=== PATIENT | male | born 1965 | race Caucasian/White ===

== ENCOUNTER 2020-01-06 14:49 | Outpatient (REF) | payer OTHER, SELFPAY ==
--- NOTE | 2020-01-06 14:51 | MR_ITS ---
MR CERVICAL SPINE WITHOUT IV CONTRAST CLINICAL INFORMATION: Disease of the spinal cord. Difficulty walking. COMPARISON: Cervical spine MRI 03/17/2017. TECHNIQUE: MRI of the cervical spine was obtained using routine sequences without contrast. FINDINGS: There are postoperative changes following ACDF at C4-C5 and C5-C6. Mild disc volume loss at the junctional C3-C4 level. There is no bone marrow edema. There are no acute fractures. Craniocervical junction is unremarkable. Partially imaged posterior fossa is unremarkable. Cervical arterial flow voids are maintained. Similar small focal syrinx at C6. There is no new cord signal abnormality. The cervical arterial flow voids are maintained. Partially imaged lipoma within the left periscapular region. C2-C3: Shallow central disc protrusion mildly does the ventral thecal sac. Uncovertebral joint spurring and hypertrophic facet arthropathy result in moderate to severe right-sided foraminal stenosis. Findings are unchanged. C3-C4: Disc osteophyte mildly narrows the central canal. Uncovertebral joint hypertrophy and hypertrophic facet arthropathy result in moderate bilateral foraminal stenosis. Findings are unchanged. C4-C5: ACDF changes. Postoperative decompression of the central canal. Osteophytic ridging slightly flattens the ventral cord. Uncovertebral joint spurring results in mild right foraminal encroachment. C5-C6: ACDF changes. Osteophytic ridging continues to result in mass effect on the cervical cord and moderate central canal stenosis. Uncovertebral joint hypertrophy and hypertrophic facet arthropathy continue to result in severe right-sided foraminal stenosis. C6-C7: Disc osteophyte mildly narrows the central canal. Uncovertebral joint hypertrophy and hypertrophic facet arthropathy result in worsening severe right-sided foraminal stenosis. C7-T1: Shallow central disc protrusion without central canal stenosis. Facet arthropathy results in mild to moderate right and mild left foraminal stenosis that is unchanged. At T1-T2, there is a similar appearing left paracentral disc protrusion that slightly flattens the left ventral cord. MR/MR cervical spine wo con IMPRESSION: - There are postoperative changes following C4-C5 and C5-C6 ACDF. At C5-C6, osteophytic ridging continues to result in moderate central canal stenosis, flattening of the cervical cord, and severe right-sided foraminal stenosis. - At C6-C7, progressive spondylitic changes result in worsening severe right-sided foraminal stenosis. - Spondylitic changes result in similar moderate to severe right C2-C3 and moderate bilateral C3-C4 foraminal stenosis. - Similar small focal syrinx at C6.
== END 2020-01-06 14:50 | disposition home or self-care (01) ==
LOC: HO.MRI 14:49
PROVIDERS: PCP Internal Medicine Geriatric Medicine; Visit Provider Internal Medicine Geriatric Medicine
DX: G95.9 Disease of spinal cord, unspecified (principal); R26.2 Difficulty in walking, not elsewhere classified
CPT/HCPCS: 72141

== ENCOUNTER 2022-10-03 09:37 | Outpatient (AMB) | payer BC, SELFPAY ==
--- NOTE | 2022-10-03 10:04 | MHC.OFFVIS ---
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 Pt reports short term memory impairment. He noticed that his short term memory loss in 2020 and slowly progressed. 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 Pt reports forgetfulness, short term memory loss, difficulty concentrating and word finding. He drives locally, can do ALDs independently. He uses pill organizer and phone calendar to have reminder for family events and doctors' appointments. He is not physically active due to neck and back pain, feels more isolated and depressed. He does Sudoku and reading books daily for cognitive activity. Pt had a brain CT done and the result was partially calcified atheromatous plaque involving the intradural left vertebral artery. He is on atorvastin 20 mg daily and check his labs q 6 months. Pt reports snoring and gasping arousals, and it has been worsened lately. He gained about 20 lb over the last 5 years. He sleeps in flat, can't use pillow due to neck pain. Pt reports frequent arousals, nocturia and non refreshing sleep with daytime sleepiness. He snores, experiences gasping for air, non rerefreshing sleep and daytime tiredness. He drinks 3 cups of coffee in the morning to stay wake and takes care of his grandchild. Sleep questionnaire: Have you ever been diagnosed with a sleep disorder? No. Have you ever had a sleep study in the past? No. Have you ever been treated for a sleep disorder? No. Do you take medications for a sleep disorder? Trazodone 200 mg qHS. Do you snore? Yes. Do you wake up gasping at night? Yes. Do you have episodes of apneas? Yes. If yes, are they witnessed? Yes. Do you have episodes of nocturnal chest pain or dyspnea? Yes. Do you have difficulty initiating sleep? Yes. Do you have difficulty maintaining sleep? Yes. Do you wake up tired? Yes. Do you have headaches upon awakening? Yes. Do you wake up with dry mouth or throat? Yes. Do you have GERD? No. Do you have nocturia? Yes. Do you have nocturnal leg cramps? Yes. Do you have symptoms of restless legs? Yes. Do you act out your dreams? No. Sleep hygiene questionnaire: What is your usual sleep routine? Usual bedtime is at 8 pm; Usual wake up time is at 6 am. Do you take naps? Yes, 1 hr a day. Is your sleep environment cool, dark, and quiet? Yes. Do you exercise? No. Do you take caffeine or other stimulants? 3 cups of coffee in the morning to stay awake. Do you use electronics in bed? Yes. What is your work schedule? N/A. Hypersomnolence questionnaire: Do you have daytime tiredness or fatigue? Yes. Do you easily fall asleep when inactive? Yes, more lately. Have you ever had episodes of sudden weakness? No. Have you ever had episodes of sudden weakness associated with strong emotions? No. PFSH Surgical History (Updated 10/03/22 @ 10:12 by Smita Reyes CMA) H/O Spinal surgery Hx of cholecystectomy Family History (Updated 10/03/22 @ 10:13 by Smita Reyes CMA) Mother Diabetes HTN (hypertension) Father Diabetes HTN (hypertension) Family/Other HTN (hypertension) Social History (Updated 10/03/22 @ 10:14 by Smita Reyes CMA) Alcohol intake: never Patient Tobacco Use Status: Former Tobacco user Use of substances other than those prescribed or required for medical reasons: No Review of Systems Const All systems reviewed & are unremarkable except as noted in HPI and below ENT Reports Normal hearing present Neuro Reports Normal hearing present Physical Exam Vital Signs: Last Vital Signs Pulse 71 10/03/22 10:14 BP 120/80 10/03/22 10:14 Pulse Ox 93 10/03/22 10:14 Oxygen Delivery Method Room Air 10/03/22 10:14 BMI result Body Mass Index 31.9 Const General: cooperative Nutritional Appearance: obese Orientation/consciousness: patient oriented x3 Neuro General: patient oriented x3 and gait normal Cranial nerves: Yes Bilaterally intact EOM present, Yes Normal facial strength present, Yes Midline tongue present, Yes Symmetric palate elevation present, Yes Normal hearing present and Yes Ability to bilaterally rotate head present Cognition (Neuro): normal cognition Gait exam (Neuro): Normal gait present Motor exam (neuro): 5/5 motor strength present throughout, Pronator motor function not present and no tremor noted Psych Appearance: grossly normal Mental Status: mental status grossly normal Speech and movement: Normal speech and movement present Affect: normal affect Attitude: cooperative Orientation What is the (year) (season) (date) (day) (month)?: year, season, date, day and month Where are we (state) (county) (town or city) (hospital) (floor)?: state, county, town or city, hospital/clinic and floor Registration Name of 3 unrelated objects clearly and slowly, then ask patient to repeat all 3 of them. (1st repeat determines score. Make sure they can repeat all three): object 1, object 2 and object 3 Attention & Calculation (CHOOSE ONE) Spell WORLD backwards (DLROW): 5 letters Recall Ask patient to repeat the 3 items from question #3.: object 1, object 2 and object 3 Language Show patient a wristwatch & ask what it is. Repeat for pencil.: watch and pencil Ask the patient to repeat the phrase 'No ifs, ands, or buts' after you.: incorrect Ask the patient to 'take a piece of paper with their right hand' 'fold paper in half' 'place paper on floor': take paper in right hand, fold paper in half and place paper on floor Print the sentence 'CLOSE YOUR EYES' on a piece. If patient actually closes eyes then score.: followed written direction Give patient a blank piece of paper & ask to write a sentence. Score if it contains a noun & verb.: sentence contains subject and verb Ask patient to copy figure of intersecting pentagons exactly. Score if all 10 angles & 2 intersects are included.: all 10 angles present & 2 are intersected Score Score: 29 Assessment & Plan Assessment & Plan (1) Excessive daytime sleepiness: Code(s): G47.19 - Other hypersomnia (2) Loud snoring: Code(s): R06.83 - Snoring (3) Cognitive impairment: Code(s): R41.89 - Other symptoms and signs involving cognitive functions and awareness (4) Obese: Code(s): E66.9 - Obesity, unspecified Plan Pt had labs done two months ago, requested the result from [facility]. Pt is advised to undergo in-lab sleep study to assess for sleep apnea. Will f/u with pt after study to discuss results and appropriate treatment options. Continue to take atorvastatin 20 mg daily, manage BP and BS. Continue to practice cognitive and physical activity. Wt reduction advised. Pt to call with any worsening concerns or questions. Orders: Orders RT PSG in-lab sleep study Today E11.69 - Type 2 diabetes mellitus with other specified complication, E66.9 - Obesity, unspecified, G47.19 - Other hypersomnia, G93.89 - Other specified disorders of brain, I10 - Essential (primary) hypertension, R06.83 - Snoring, R41.89 - Other symptoms and signs involving cognitive functions and awareness Coding Level of Care Code New Pt Level 4 (55219) Diagnoses Excessive daytime sleepiness G47.19 Loud snoring R06.83 Cognitive impairment R41.89 Obese E66.9
[2022-10-03 10:14] VITALS: BP 120/80; PULSE 71; O2SAT 93; BMI 31.9
== END 2022-10-03 11:01 | disposition home or self-care (01) ==
PROVIDERS: Visit Provider Nurse Practitioner Family
DX: G47.19 Other hypersomnia (principal); R06.83 Snoring; R41.89 Other symptoms and signs involving cognitive functions and awareness; E66.9 Obesity, unspecified
CPT/HCPCS: 99204

== ENCOUNTER → 2022-10-03 09:37 | Outpatient (BNVA) | payer BC, SELFPAY | PROVIDERS: Visit Provider Nurse Practitioner Family ==

== ENCOUNTER → 2023-01-21 08:40 | Outpatient (REF) | payer BC, SELFPAY | LOC: HO.SL 08:40 | PROVIDERS: PCP Internal Medicine Geriatric Medicine; Visit Provider Nurse Practitioner Family | DX: G47.19 Other hypersomnia (principal); R06.83 Snoring; E66.9 Obesity, unspecified; R41.89 Other symptoms and signs involving cognitive functions and awareness; I10 Essential (primary) hypertension | CPT/HCPCS: 95806 ==

== ENCOUNTER → 2023-01-21 08:53 | Outpatient (BNV) | payer BC, SELFPAY | PROVIDERS: PCP Internal Medicine Geriatric Medicine; Visit Provider Psychiatry & Neurology Neurology | DX: R06.83 Snoring (principal) | CPT/HCPCS: 95806 ==

== ENCOUNTER 2023-01-26 10:32 | Outpatient (REF) | payer BC, SELFPAY ==
[2023-01-26 11:55] LABS: Anion Gap 10 (12-20); Blood Urea Nitrogen 12 mg/dL (9-16); Calcium 9.6 mg/dL (8.4-10.2); Carbon Dioxide 32 mmol/L (22-29); Chloride 104 mmol/L (96-108); Estimated Glomerular Filt Rate > 60; Glucose Random 112 mg/dL (60-115); Potassium 4.3 mmol/L (3.3-5.1); Sodium 142 mmol/L (135-145)
[2023-01-26 12:08] LABS: Creatinine Urine 41.99 mg/dL; Microalbumin Urine < 5.0 mg/L
== END 2023-01-26 10:33 | disposition home or self-care (01) ==
LOC: HO.HHCL 10:32
PROVIDERS: Visit Provider Internal Medicine Geriatric Medicine
DX: E11.9 Type 2 diabetes mellitus without complications (principal)
CPT/HCPCS: 36415; 80048; 82043; 82570

== ENCOUNTER → 2023-03-12 19:30 | Outpatient (REF) | payer BC, SELFPAY | LOC: HO.SL 19:30 | PROVIDERS: PCP Internal Medicine Geriatric Medicine; Visit Provider Nurse Practitioner Family | DX: G47.19 Other hypersomnia (principal); R06.83 Snoring; E11.69 Type 2 diabetes mellitus with other specified complication | CPT/HCPCS: 95810 ==

== ENCOUNTER → 2023-03-13 00:47 | Outpatient (BNV) | payer BC, SELFPAY | PROVIDERS: PCP Internal Medicine Geriatric Medicine; Visit Provider Psychiatry & Neurology Neurology | DX: R06.83 Snoring (principal) | CPT/HCPCS: 95810 ==

== ENCOUNTER 2023-04-07 10:04 | Outpatient (AMB) | payer BC, SELFPAY ==
--- NOTE | 2023-04-07 10:30 | MHC.OFFVIS ---
Intake Vital Signs 04/07/23 10:37 Height 6 ft 4 in Weight 253 lb 8.505 oz BMI 30.9 BP 148/75 H Blood Pressure Location Lt brachial Position Sitting Pulse 84 Intake Visit Reasons: Colonoscopy Screening Intake Note: Miguel presents in the office as a colonoscopy screening. CC: No concerns today he just has never had a colonoscopy Stunt Woman Required: No Allergies No Known Allergies Allergy (Verified 04/07/23 10:39) HPI Colonoscopy Screening HPI Details 57 year old? male with past medical history of hypertension, diabetes, hypercholesteremia is here today for pre colonoscopy screening.? Patient was sent to us by his PCP.? This is his first colonoscopy screening.? Patient denies any gastrointestinal symptoms in the past or at present.? Denies any personal or family history of gastrointestinal disease, colon polyps, or cancer.? Denies history of difficulty with sedation or anesthesia in the past.? Negative for history of sleep apnea.? However patient reports that he had study to rule out sleep apnea and is awaiting for results and appointment follow-up. Patient was told that his oxygen level went down during the study and he had to wear oxygen. Denies any history of cardiac, renal, pulmonary, or hepatic disease.?? No history of infectious? diseases like hepatitis A, B, C, HIV or tuberculosis.? Patient is not on any anticoagulation therapy. [facility] Surgical History Hx of cholecystectomy H/O Spinal surgery Family History Mother Diabetes HTN (hypertension) Father Diabetes HTN (hypertension) Family/Other HTN (hypertension) Social History Alcohol intake: never Patient Tobacco Use Status: Former Tobacco user Review of Systems Const Denies weight gain and Denies weight loss ENT Reports no additional complaints, Denies dysphagia and Denies odynophagia Card Reports no additional complaints Resp Reports no additional complaints GI Denies abdominal pain, Denies belching, Denies melena, Denies bloating, Denies change in bowel habits, Denies dysphagia, Denies excessive flatus, Denies dyspepsia, Denies heartburn, Denies diarrhea, Denies loose stools, Denies nausea, Denies odynophagia and Denies vomiting Reports no additional complaints Musc Reports no additional complaints Neuro Reports no additional complaints Psych Reports no additional complaints Endo Reports no additional complaints Physical Exam Vital Signs: Last Vital Signs Pulse 84 04/07/23 10:37 BP 148/75 H 04/07/23 10:37 BMI result Body Mass Index 30.9 Const General: healthy appearing, no acute distress and well developed Nutritional Appearance: obese Orientation/consciousness: patient oriented x3 Resp Effort & Inspection: normal respiratory effort, able to speak in complete sentences, no tracheal deviation and symmetric chest movement Auscultation: clear to auscultation bilaterally Cardio Rate: regular rate GI Inspection: Yes normal to inspection, No distended and Yes obesity Palpation (GI): Soft to palpation, not firm, nontender and No hepatosplenomegaly present Auscultation: normal bowel sounds General: Yes no CVA tenderness Back/Spine/Pelvis Back: no CVA tenderness Skin General skin exam: elasticity normal, turgor normal and dry skin Neuro General: patient oriented x3 Psych Appearance: grossly normal Mental Status: mental status grossly normal Assessment & Plan Assessment & Plan (1) Screen for colon cancer: Code(s): Z12.11 - Encounter for screening for malignant neoplasm of colon Plan: Patient denies any GI, cardiac or respiratory symptoms.? Denies any issues with anesthesia in the past.? Denies any history of sleep apnea.? However patient had sleep study done and reports that his oxygen levels went down during the sleep. Patient is waiting for appointment for follow-up. No history infectious diseases in the past or present.? Not on any anticoagulation therapy.? No family or personal history of colon cancer or polyps.? Patient denies melena, hematochezia, unintentional weight loss or ribbon like stools.? Discussed at length the pre-procedure,? prep, diet & medications as well as what to expect prior, during and after the procedure.?? Stressed the importance of good bowel prep. ?Recommended the use of Vaseline or Calmoseptine OTC & baby wipes with bowel movements to promote comfort.? ?Patient verbalizes understanding and agrees to plan of care.? He was given the opportunity to ask questions and all questions answered.? We will see him after the procedure.? Medications: New polyethylene glycol 3350 (Miralax) As directed by gastroenterology department at [facility] 238 grams PO ONCE 238 grams 0RF Z12.11 - Encounter for screening for malignant neoplasm of colon bisacodyl (Dulcolax (bisacodyl)) take 4 tabs at noon the day before your colonoscopy 20 mg (4 x 5 mg) PO ONCE 1 day 4 tabs 0RF Z12.11 - Encounter for screening for malignant neoplasm of colon Coding Level of Care Code New Pt Level 3 (36443) Diagnoses Screen for colon cancer Z12.11 Time Spent (min) 40 Comment 30 minutes spent with patient and 10 minutes spent reviewing his records
[2023-04-07 10:37] VITALS: BP 148/75; PULSE 84; BMI 30.9
== END 2023-04-07 11:35 | disposition home or self-care (01) ==
PROVIDERS: PCP Internal Medicine Geriatric Medicine; Visit Provider Nurse Practitioner Family
DX: Z01.818 Encounter for other preprocedural examination (principal); Z12.11 Encounter for screening for malignant neoplasm of colon
CPT/HCPCS: S0285

== ENCOUNTER → 2023-04-07 10:04 | Outpatient (BNVA) | payer BC, SELFPAY | PROVIDERS: PCP Internal Medicine Geriatric Medicine; Visit Provider Nurse Practitioner Family ==

== ENCOUNTER 2023-06-15 10:07 | Outpatient (REF) | payer BC, SELFPAY ==
--- NOTE | ~2023-06-15 | XR_ITS ---
EXAMINATION: XR CHEST CLINICAL INFORMATION: Reason for Exam G47.34 - Idiopathic sleep related nonobstructive alveolar hypoventilation COMPARISON: Chest radiograph 06/12/2017 TECHNIQUE: 2 views of the chest FINDINGS: Lines and tubes: Cervical hardware is suboptimally evaluated. Similar appearance of linear opacities in the left lung base which may reflect scarring or atelectasis with blunting of the costophrenic angle possibly reflecting of pleural parenchymal thickening or trace effusion. No pleural effusion. No pneumothorax. Unchanged cardiomediastinal silhouette. XR/XR chest 2V IMPRESSION: Similar appearance of linear opacities in the left lung base which may reflect scarring or atelectasis with blunting of the costophrenic angle possibly reflecting pleural parenchymal thickening or trace effusion.
== END 2023-06-15 10:08 | disposition home or self-care (01) ==
LOC: HO.XRAY 10:07
PROVIDERS: PCP Internal Medicine Geriatric Medicine; Visit Provider Internal Medicine
DX: G47.34 Idiopathic sleep related nonobstructive alveolar hypoventilation (principal); G47.19 Other hypersomnia
CPT/HCPCS: 71046

== ENCOUNTER 2023-06-15 10:07 | Outpatient (AMB) | payer BC, SELFPAY ==
--- NOTE | 2023-06-15 10:50 | A.OFFVIS_ITS ---
Intake Vital Signs 06/15/23 10:51 Height 6 ft 4 in Weight 254 lb 10.142 oz BMI 31.0 BP 130/70 Blood Pressure Location Lt brachial Position Sitting Pulse 73 Pulse Source Pulse Oximeter Pulse Oximetry (%) 95 Oxygen Delivery Method Room Air Intake Visit Reasons: Obstructive sleep apnea Intake Note: pt is here as a new patient for MIKE and states he has no cpap but has had 2 sleep study in past, he states he has very difficulty time sleeping at night. Appeals Court Associate Justice Required: No Allergies losartan Adverse Reaction (Intermediate, Verified 06/15/23 13:28) Cough Medication List - Last Reconciled 06/15/23 by Delia Jim MD atorvastatin 20 mg PO DAILY bisacodyl (Dulcolax (bisacodyl)) 20 mg (4 x 5 mg) PO ONCE 1 day blood sugar diagnostic ([employer] Ultra Test strips) As directed cyclobenzaprine 10 mg PO TID metformin 500 mg PO BID metoprolol tartrate 100 mg PO BID mometasone 0.1% topical DAILY multivitamin 1 tab PO DAILY oxycodone-acetaminophen 5-325 mg 1 tab PO Q8H PRN polyethylene glycol 3350 (Miralax) 238 grams PO ONCE pregabalin 100 mg PO BID sertraline 300 mg PO DAILY tadalafil 5 mg PO DAILY trazodone 200 mg PO BEDTIME PRN Do you need a note to return to daycare/school/sports/work: No HPI Obstructive sleep apnea HPI Details 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 He is referred for pulmonary evaluation because during his sleep studies, he was found to have nocturnal hypoxemia. He has had problem with his cervical spine, secondary to degenerative arthritis, requiring spinal fusion, in 2018 and 2022. Since 2019 he has been out of work because of the neck problem. Starting in 2018, he has had sleep disorder, characterized by poor sleep, freq uent awakening, and subsequent daytime fatigue and sleepiness. He has been only slightly overweight. Due to complications from the cervical spinal surgery, he had problem with his teeth which have been pulled out. He is edentulous , waiting for having dentures. This gentleman does not have history of any chronic pulmonary disease such as bronchial asthma or COPD. He has been a nonsmoker. For pain control he is on oxycodone-acetaminophen 5-325 q.8 hours p.r.n.. He is also on sertraline 300 mg daily for depression. In addition he takes trazodone 200 mg at bedtime p.r.n. for sleep he also uses cyclobenzaprine 10 mg t.i.d. in addition he is being treated for type 2 diabetes mellitus, hypertension, and hyperlipidemia. For his sleep disorder he had a home-based sleep study, which was negative for sleep apnea but, he had nocturnal hypoxemia with O2 sat below 88% for about 37 minutes. Then he had a sleep lab based polysomnogram study on 03/12/2023, which was also negative for sleep apnea. But he did have O2 desaturations and lowest O2 sat down to 85% and O2 sat below 88% for about 9 minutes. He was started on O2 1 L/minute. This indicates that he has some degree of sleep-related hypoventilatory disorder. He has been referred for pulmonary evaluation. [facility] Surgical History Hx of cholecystectomy H/O Spinal surgery Family History Mother Diabetes HTN (hypertension) Father Diabetes HTN (hypertension) Family/Other HTN (hypertension) Social History Alcohol intake: never Patient Tobacco Use Status: Former Tobacco user Review of Systems Const All systems reviewed & are unremarkable except as noted in HPI and below Reports weakness (Of upper extremities) Eyes Reports no additional complaints ENT Reports no additional complaints and Reports neck pain Card Denies chest pain, Denies syncope, Denies irregular heart rhythm and Denies leg edema Resp Reports as per HPI GI Reports no additional complaints Reports no additional complaints Musc Reports back pain, Reports muscle weakness (FEELS WEAK IN THE UPPER EXTREMITIES,) and Reports neck pain Skin/Breast Reports system reviewed and no additional complaints, except as documented Neuro Denies syncope and Reports weakness (Of upper extremities) Psych Reports depression Endo Reports no additional complaints Santos/Lymph Reports no additional complaints Aller/Immun Reports no additional complaints Physical Exam Vital Signs: Last Vital Signs Pulse 73 06/15/23 10:51 BP 130/70 06/15/23 10:51 Pulse Ox 95 06/15/23 10:51 Oxygen Delivery Method Room Air 06/15/23 10:51 BMI result Body Mass Index 31.0 Const General: healthy appearing, comfortable, no acute distress, alert and awake Orientation/consciousness: patient oriented x3 HEENT Head: Yes normal to inspection General nose exam: No nasal polyps present and No nasal discharge present Face and sinus: Yes sinuses nontender Mouth: oropharynx normal Teeth and gingiva: edentulous Throat: Yes posterior oropharynx normal Eyes General: appearance normal, both eyes and all related structures Neck Neck: Yes normal visual inspection, Yes no lymphadenopathy, Yes trachea midline, Yes no JVD and Yes other (Surgical scars on the back of the neck) Thyroid: Thyroid normal Chest Chest palpation & inspection: normal inspection of the chest, normal palpation of entire chest wall and no tenderness Resp Effort & Inspection: normal respiratory effort Auscultation: clear to auscultation bilaterally, no crackles, no rales and no wheezes Cardio Palpation: normal PMI Rate: regular rate Rhythm: regular rhythm Heart sounds: no gallops and no murmurs Peripheral pulses: Peripheral pulses 2+ throughout GI Palpation (GI): Soft to palpation, nontender, No hepatosplenomegaly present and no masses Auscultation: normal bowel sounds Back/Spine/Pelvis Thoracic/Lumbar Spine: thoracic and lumbar spine normal to inspection and thoraco-lumbar ROM limited Skin General skin exam: no rashes or lesions noted Neuro General: patient oriented x3 and no focal motor deficits Cranial nerves: Yes CN's II-XII intact bilaterally Extrem General: Yes normal to inspection, Yes no clubbing, cyanosis or edema and Yes no calf tenderness Psych Appearance: grossly normal and well kempt Speech and movement: Normal speech and movement present Results Reviewed Results Reviewed: Results of polysomnogram study on 03/12/2023 are reviewed and explained to the patient There was no evidence of sleep apnea. For bouts of desaturation with average O2 sat 92% lowest O2 sat 85%, and O2 sat below 88% for 9.5 minutes Assessment & Plan Assessment & Plan (1) Excessive daytime sleepiness: Comment: This gentleman does have daytime fatigue and sleepiness, which is nonspecific. Sleep study negative for sleep apnea. His symptoms may be due to depression, insufficient sleep at night, and poor physical conditioning. He is on rather large dose of sertraline as well as trazodone. Code(s): G47.19 - Other hypersomnia Plan: Explained to the patient and reassured that he does not have sleep apnea. Possible reasons for his sleepiness and fatigue explained, He is encouraged to be active and do some daily walking as well as gentle. exercises (2) Nocturnal hypoxemia: Comment: Nocturnal hypoxemia as recorded in the polysomnogram study was relatively brief, and O2 sat below 88% for only 9.5 minutes. The reason for O2 desaturations could be sleep-related hypoventilation, or even technical. As he does not seem to have any significant cardiac or pulmonary disease, I think he would not need supplementary oxygen at night. Code(s): G47.34 - Idiopathic sleep related nonobstructive alveolar hypoventilation Plan: Chest x-ray is ordered. Pulmonary function test is also ordered, to rule out any significant pulmonary disease. I would discuss the results of pulmonary function test with him on the next visit . Orders: Orders PFT pulmonary function test Today G47.34 - Idiopathic sleep related nonobstructive alveolar hypoventilation XR chest 2V Today G47.34 - Idiopathic sleep related nonobstructive alveolar hypoventilation Coding Level of Care Code New Pt Level 4 (70748) Diagnoses Excessive daytime sleepiness G47.19 Nocturnal hypoxemia G47.34
[2023-06-15 10:51] VITALS: BP 130/70; PULSE 73; O2SAT 95; BMI 31.0
== END 2023-06-15 11:38 | disposition home or self-care (01) ==
PROVIDERS: PCP Internal Medicine Geriatric Medicine; Referring Provider Internal Medicine Geriatric Medicine; Visit Provider Internal Medicine
DX: G47.19 Other hypersomnia (principal); G47.34 Idiopathic sleep related nonobstructive alveolar hypoventilation
CPT/HCPCS: 99204

== ENCOUNTER 2023-06-24 08:33 | Outpatient (REF) | payer BC, SELFPAY ==
[2023-06-24 08:45] VITALS: PULSE 77; RESP 16; O2SAT 96
--- NOTE | 2023-06-24 10:07 | PFT_ITS ---
Flows: FEV1: 79 % of predicted at 3.40 L FVC: 75 % of predicted at 4.26 L FEV1/FVC: 80 % Bronchodilator response: Absent Volumes: Total lung capacity: 72 % of predicted at 6.30 L Residual volume: 76 % of predicted at 2.04 L Slow vital capacity: 69 % of predicted at 4.26 L Expiratory reserve volume: 64 % of predicted at 1.15 L Diffusion capacity: Patient was unable to perform diffusion capacity maneuver. Impression: Moderate restrictive ventilatory defect with no bronchodilator response. Patient was unable to perform diffusion capacity maneuver. MTDD
== END 2023-06-24 08:34 | disposition home or self-care (01) ==
LOC: HO.RESP 08:33
PROVIDERS: PCP Internal Medicine Geriatric Medicine; Visit Provider Internal Medicine
DX: G47.34 Idiopathic sleep related nonobstructive alveolar hypoventilation (principal)
CPT/HCPCS: 94010; 94640; 94727; 94729

== ENCOUNTER → 2023-06-24 10:07 | Outpatient (BNV) | payer BC, SELFPAY | PROVIDERS: PCP Internal Medicine Geriatric Medicine; Visit Provider Internal Medicine Pulmonary Disease | DX: R06.09 Other forms of dyspnea (principal) | CPT/HCPCS: 94060; 94727; 94729 ==

== ENCOUNTER 2023-08-06 10:29 | Outpatient (AMB) | payer BC, SELFPAY ==
--- NOTE | 2023-08-06 10:56 | MHC.OFFVIS ---
Vital Signs 08/06/23 10:57 Height 6 ft 4 in Weight 253 lb 8.505 oz BMI 30.9 BP 130/74 Blood Pressure Location Lt brachial Position Sitting Pulse 78 Pulse Source Pulse Oximeter Pulse Oximetry (%) 96 Oxygen Delivery Method Room Air Intake Visit Reasons: Cough Intake Note: pt is here for follow up and states his breathing is worse, is now having short of breath with exertion during the day Allergies losartan Adverse Reaction (Intermediate, Verified 08/06/23 11:24) Cough Medication List - Last Reconciled 08/06/23 by Delia Jim MD atorvastatin 20 mg PO DAILY bisacodyl (Dulcolax (bisacodyl)) 20 mg (4 x 5 mg) PO ONCE 1 day blood sugar diagnostic ([facility] Ultra Test strips) As directed cyclobenzaprine 10 mg PO TID metformin 500 mg PO BID metoprolol tartrate 100 mg PO BID mometasone 0.1% topical DAILY multivitamin 1 tab PO DAILY oxycodone-acetaminophen 5-325 mg 1 tab PO Q8H PRN polyethylene glycol 3350 (Miralax) 238 grams PO ONCE pregabalin 100 mg PO BID sertraline 300 mg PO DAILY tadalafil 5 mg PO DAILY trazodone 200 mg PO BEDTIME PRN Do you need a note to return to daycare/school/sports/work: No HPI HPI Cough: Details: 58 years old gentleman is here for follow-up after having pulmonary function test. His main issue is nocturnal hypoxemia. Home-based sleep study as well as polysomnogram study in the sleep lab have ruled out diagnosis of obstructive sleep apnea . But confirm that he does have nocturnal hypoxemia. This gentleman denies history of smoking. He denies history of any asthma bronchitis or COPD. He does have shortness of breath on walking fast or climbing stairs but this is part of his feeling. Weak and tired in the morning His sleep is fragmented and he thinks it is due to low oxygen. However he does have diagnosis of depression and poor poor sleep. He is on sertraline 300 mg daily and also trazodone 200 mg at bedtime. In addition he uses oxycodone/acetaminophen 5-320 5q 8 hours p.r.n. PULMONARY FUNCTION TEST SHOWED ONLY MILD RESTRICTIVE DISORDER BUT NO OBSTRUCTIVE DISORDER. FOR[facility]LY [facility] Medical History (Updated 05/23/24 @ 11:56 by Delia Jim MD) Nocturnal hypoxemia Restrictive airway disease HTN (hypertension) Diabetes mellitus type 2 in obese Surgical History Hx of cholecystectomy H/O Spinal surgery Family History Mother Diabetes HTN (hypertension) Father Diabetes HTN (hypertension) Family/Other HTN (hypertension) Social History Alcohol intake: never Patient Tobacco Use Status: Former Tobacco user Review of Systems Const All systems reviewed & are unremarkable except as noted in HPI and below Reports weakness (Of upper extremities) Eyes Reports no additional complaints ENT Reports no additional complaints and Reports neck pain Card Denies chest pain, Denies syncope, Denies irregular heart rhythm and Denies leg edema Resp Reports as per HPI GI Reports no additional complaints Reports no additional complaints Musc Reports back pain, Reports muscle weakness (FEELS WEAK IN THE UPPER EXTREMITIES,) and Reports neck pain Skin/Breast Reports system reviewed and no additional complaints, except as documented Neuro Denies syncope and Reports weakness (Of upper extremities) Psych Reports depression Endo Reports no additional complaints Santos/Lymph Reports no additional complaints Aller/Immun Reports no additional complaints Physical Exam Vital Signs: Last Vital Signs Pulse 78 08/06/23 10:57 BP 130/74 08/06/23 10:57 Pulse Ox 96 08/06/23 10:57 Oxygen Delivery Method Room Air 08/06/23 10:57 BMI result Body Mass Index 30.9 Const General: healthy appearing, comfortable, no acute distress, alert and awake Orientation/consciousness: patient oriented x3 HEENT Head: Yes normal to inspection General nose exam: No nasal polyps present and No nasal discharge present Face and sinus: Yes sinuses nontender Mouth: oropharynx normal Teeth and gingiva: edentulous Throat: Yes posterior oropharynx normal Eyes General: appearance normal, both eyes and all related structures Neck Neck: Yes normal visual inspection, Yes no lymphadenopathy, Yes trachea midline, Yes no JVD and Yes other (Surgical scars on the back of the neck) Thyroid: Thyroid normal Chest Chest palpation & inspection: normal inspection of the chest, normal palpation of entire chest wall and no tenderness Resp Effort & Inspection: normal respiratory effort Auscultation: clear to auscultation bilaterally, no crackles, no rales and no wheezes Cardio Palpation: normal PMI Rate: regular rate Rhythm: regular rhythm Heart sounds: no gallops and no murmurs Peripheral pulses: Peripheral pulses 2+ throughout GI Palpation (GI): Soft to palpation, nontender, No hepatosplenomegaly present and no masses Auscultation: normal bowel sounds Back/Spine/Pelvis Thoracic/Lumbar Spine: thoracic and lumbar spine normal to inspection and thoraco-lumbar ROM limited Skin General skin exam: no rashes or lesions noted Neuro General: patient oriented x3 and no focal motor deficits Cranial nerves: Yes CN's II-XII intact bilaterally Extrem General: Yes normal to inspection, Yes no clubbing, cyanosis or edema and Yes no calf tenderness Psych Appearance: grossly normal and well kempt Speech and movement: Normal speech and movement present Results Reviewed Results Reviewed: PULMONARY FUNCTION TEST on 06/24/2023 c/w mild restrictive pulmonary disorder.( TLC=72 % ) No obstructive airway disorder and no response to bronchodilator therapy Assessment & Plan Assessment & Plan (1) Restrictive airway disease: Comment: HE HAS MILD RESTRICTIVE LUNG DISORDER, TLC 72% THERE IS NO OBSTRUCTIVE AIRWAY DISORDER. Code(s): J98.4 - Other disorders of lung Category: Medical Plan: EXPLAINED ABOUT THE DIAGNOSIS, ADVISED TO DO DEEP BREATHING EXERCISES. NEEDS TO LOSE ABOUT 10 LB OF WEIGHT. (2) Excessive daytime sleepiness: Comment: This gentleman does have daytime fatigue and sleepiness, which is nonspecific. Sleep study negative for sleep apnea. His symptoms may be due to depression, insufficient sleep at night, and poor physical conditioning. He is on rather large dose of sertraline as well as trazodone. The patient is thinks it is due to low oxygen at night. Code(s): G47.19 - Other hypersomnia Category: Medical Plan: Advised to continue present medications. Advised to stay active and walk on a daily basis. Will consider starting on O2 at nighttime. (3) Nocturnal hypoxemia: Comment: Nocturnal hypoxemia as recorded in the polysomnogram study , O2 sat below 88% for only 9.5 minutes. The reason for O2 desaturations could be sleep-related hypoventilation, * his earlier home-based sleep study had shown the O2 sat below 88% for 35 minutes. The patient is convinced that in the sleep lab based study if his O2 sat was measured on room air throughout the night it would have been more than 9 minutes. He say is that many times he checks his O2 sat at nighttime and he finds it below 88%. Code(s): G47.34 - Idiopathic sleep related nonobstructive alveolar hypoventilation Category: Medical Plan: Because of his continued daytime sleepiness and fatigue. And frequent finding of low O2 sat at night, we would try to put him on O2 supplementation at night and hope that his fatigue/daytime sleepiness will improve. O2 supplementation at 2 L/minute at nighttime is prescribed. Coding Level of Care Code Est Pt Level 3 (00743) Diagnoses Restrictive airway disease J98.4 Excessive daytime sleepiness G47.19 Nocturnal hypoxemia G47.34
[2023-08-06 10:57] VITALS: BP 130/74; PULSE 78; O2SAT 96; BMI 30.9
== END 2023-08-06 11:23 | disposition home or self-care (01) ==
PROVIDERS: PCP Internal Medicine Geriatric Medicine; Visit Provider Internal Medicine
DX: J98.4 Other disorders of lung (principal); G47.19 Other hypersomnia; G47.34 Idiopathic sleep related nonobstructive alveolar hypoventilation
CPT/HCPCS: 99213

== ENCOUNTER → 2023-08-06 10:29 | Outpatient (BNVA) | payer BC, SELFPAY | PROVIDERS: PCP Internal Medicine Geriatric Medicine; Visit Provider Internal Medicine ==

== ENCOUNTER 2023-09-24 08:59 | Outpatient (REF) | payer BC, SELFPAY ==
[2023-09-24 14:46] LABS: MANUAL DIFF FLAG NO
[2023-09-24 14:57] LABS: Basophils Percent Auto 0.4 % (0-2); Eosinophils Absolute Auto 0.1 X10*3/uL (0.0-0.4); Eosinophils Percent Auto 2.2 % (0-4); Hematocrit 47.9 % (42.0-52.0); Hemoglobin 15.4 g/dl (14.0-18.0); Imm Gran Abs Auto 0.01 X10*3/uL (0.00-0.03); Imm Gran Pct Auto 0.2 % (0.0-0.4); Lymphocytes Absolute Auto 1.4 X10*3/uL (1.2-4.9); Lymphocytes Percent Auto 25.4 % (20-40); Mean Corpuscular HGB Conc 32.2 g/dl (31.0-36.0); Mean Corpuscular Hemoglobin 26.7 pg (27.0-33.0); Mean Platelet Volume 10.1 fL (9.4-12.4); Monocytes Absolute Auto 0.4 X10*3/uL (0.1-1.2); Monocytes Percent Auto 6.9 % (2-11); Neutrophils Absolute Auto 3.6 x10*3/uL (2.0-8.3); Neutrophils Percent Auto 64.9 % (45-73); Platelet Count 129 X10*3/uL (160-400); Red Blood Count 5.77 X10*6/uL (4.60-5.80); White Blood Count 5.5 X10*3/uL (4.8-10.8)
[2023-09-24 15:04] LABS: Estimated Average Glucose 123 mg/dL; Hemoglobin A1c % 5.9 % (<6.0)
[2023-09-24 15:18] LABS: Alanine Aminotransferase 27 U/L (0-40); Albumin Level 4.3 g/dL (3.5-5.0); Alkaline Phosphatase 73 U/L (39-117); Anion Gap 13 (12-20); Aspartate Amino Transferase 28 U/L (5-37); Bilirubin Total 0.5 mg/dL (0.0-1.0); Blood Urea Nitrogen 14 mg/dL (9-16); Calcium 9.7 mg/dL (8.4-10.2); Carbon Dioxide 27 mmol/L (22-29); Chloride 107 mmol/L (96-108); Cholesterol 159 mg/dL (<200); Estimated Glomerular Filt Rate > 60; Glucose Random 119 mg/dL (60-115); HDL Cholesterol 30 mg/dL (>40); LDL Cholesterol Calculated 86 mg/dL (<100); Sodium 143 mmol/L (135-145); Total Protein 7.2 g/dL (6.5-8.0); Triglycerides 218 mg/dL (<150)
[2023-09-24 15:36] LABS: Creatinine Urine 184.34 mg/dL; Microalbum/Creatinine Ratio Ur 8.1 ug/mg cr (<30)
== END 2023-09-24 09:00 | disposition home or self-care (01) ==
LOC: HO.CHCLDS 08:59
PROVIDERS: Visit Provider Internal Medicine Geriatric Medicine
DX: E11.9 Type 2 diabetes mellitus without complications (principal); M54.2 Cervicalgia; G89.29 Other chronic pain; G95.0 Syringomyelia and syringobulbia; R29.898 Other symptoms and signs involving the musculoskeletal system; Z98.1 Arthrodesis status
CPT/HCPCS: 36415; 80053; 80061; 82043; 82570; 83036; 85025; 86140

== ENCOUNTER 2023-10-06 10:48 | Outpatient (AMB) | payer BC, SELFPAY ==
[2023-10-06 11:02] VITALS: BP 140/90; PULSE 87; O2SAT 95; BMI 30.5
--- NOTE | 2023-10-06 11:02 | MHC.OFFVIS ---
Vital Signs 10/06/23 11:02 Height 6 ft 4 in Weight 250 lb 3.594 oz BMI 30.5 BP 140/90 H Blood Pressure Location Lt brachial Position Sitting Pulse 87 Pulse Source Pulse Oximeter Pulse Oximetry (%) 95 Oxygen Delivery Method Room Air Intake Visit Reasons: Cough Intake Note: pt is here for follow up and the oxygen has made a huge difference in his life. Negative Developer Required: No Allergies losartan Adverse Reaction (Intermediate, Verified 10/06/23 11:23) Cough Medication List - Last Reconciled 10/06/23 by Delia Jim MD atorvastatin 20 mg PO DAILY bisacodyl (Dulcolax (bisacodyl)) 20 mg (4 x 5 mg) PO ONCE 1 day blood sugar diagnostic ([facility] Ultra Test strips) As directed cyclobenzaprine 10 mg PO TID metformin 500 mg PO BID metoprolol tartrate 100 mg PO BID mometasone 0.1% topical DAILY multivitamin 1 tab PO DAILY oxycodone-acetaminophen 5-325 mg 1 tab PO Q8H PRN polyethylene glycol 3350 (Miralax) 238 grams PO ONCE pregabalin 100 mg PO BID sertraline 300 mg PO DAILY tadalafil 5 mg PO DAILY trazodone 200 mg PO BEDTIME PRN Do you need a note to return to daycare/school/sports/work: No HPI HPI Cough: Details: 58 YEARS OLD GENTLEMAN, IS ON OXYCODONE-ACETAMINOPHEN 5-3251 TABLET Q 8 HOURS P.R.N. FOR PAIN CONTROL, HE HAS CHRONIC NECK PAIN. HE DOES NOT HAVE ANY PRIMARY LUNG DISEASE BUT WAS FOUND TO HAVE NOCTURNAL HYPOXEMIA. HAS BEEN STARTED ON OXYGEN SUPPLEMENTATION 2-3 L/MINUTE AT NIGHT DURING SLEEP. HE COMES TODAY FOR FOLLOW-UP AND CLAIMS THAT LIFE IS CHANGED. HE FEELS STRONGER. HIS MOOD IS BETTER. HE CAN DO MORE PHYSICAL ACTIVITY. HE DOES NOT NEED TO USE OXYGEN DURING THE DAYTIME. FORMERLY [facility] Medical History Nocturnal hypoxemia Restrictive airway disease HTN (hypertension) Diabetes mellitus type 2 in obese Surgical History Hx of cholecystectomy H/O Spinal surgery Family History Mother Diabetes HTN (hypertension) Father Diabetes HTN (hypertension) Family/Other HTN (hypertension) Social History Alcohol intake: never Patient Tobacco Use Status: Former Tobacco user Review of Systems Const All systems reviewed & are unremarkable except as noted in HPI and below Reports weakness (Of upper extremities) Eyes Reports no additional complaints ENT Reports no additional complaints and Reports neck pain Card Denies chest pain, Denies syncope, Denies irregular heart rhythm and Denies leg edema Resp Reports as per HPI GI Reports no additional complaints Reports no additional complaints Musc Reports back pain, Reports muscle weakness (FEELS WEAK IN THE UPPER EXTREMITIES,) and Reports neck pain Skin/Breast Reports system reviewed and no additional complaints, except as documented Neuro Denies syncope and Reports weakness (Of upper extremities) Psych Reports depression Endo Reports no additional complaints Santos/Lymph Reports no additional complaints Aller/Immun Reports no additional complaints Physical Exam Vital Signs: Last Vital Signs Pulse 87 10/06/23 11:02 BP 140/90 H 10/06/23 11:02 Pulse Ox 95 10/06/23 11:02 Oxygen Delivery Method Room Air 10/06/23 11:02 BMI result Body Mass Index 30.5 Const General: healthy appearing, comfortable, no acute distress, alert and awake Orientation/consciousness: patient oriented x3 HEENT Head: Yes normal to inspection General nose exam: No nasal polyps present and No nasal discharge present Face and sinus: Yes sinuses nontender Mouth: oropharynx normal Teeth and gingiva: edentulous Throat: Yes posterior oropharynx normal Eyes General: appearance normal, both eyes and all related structures Neck Neck: Yes normal visual inspection, Yes no lymphadenopathy, Yes trachea midline, Yes no JVD and Yes other (Surgical scars on the back of the neck) Thyroid: Thyroid normal Chest Chest palpation & inspection: normal inspection of the chest, normal palpation of entire chest wall and no tenderness Resp Effort & Inspection: normal respiratory effort Auscultation: clear to auscultation bilaterally, no crackles, no rales and no wheezes Cardio Palpation: normal PMI Rate: regular rate Rhythm: regular rhythm Heart sounds: no gallops and no murmurs Peripheral pulses: Peripheral pulses 2+ throughout GI Palpation (GI): Soft to palpation, nontender, No hepatosplenomegaly present and no masses Auscultation: normal bowel sounds Back/Spine/Pelvis Thoracic/Lumbar Spine: thoracic and lumbar spine normal to inspection and thoraco-lumbar ROM limited Skin General skin exam: no rashes or lesions noted Neuro General: patient oriented x3 and no focal motor deficits Cranial nerves: Yes CN's II-XII intact bilaterally Extrem General: Yes normal to inspection, Yes no clubbing, cyanosis or edema and Yes no calf tenderness Psych Appearance: grossly normal and well kempt Speech and movement: Normal speech and movement present Assessment & Plan Assessment & Plan (1) Restrictive airway disease: Comment: HE HAS MILD RESTRICTIVE LUNG DISORDER, TLC 72% THERE IS NO OBSTRUCTIVE AIRWAY DISORDER. Code(s): J98.4 - Other disorders of lung Category: Medical Plan: ADVISED TO CONTINUE DOING DEEP BREATHING EXERCISES AT LEAST 3 TIMES A DAY (2) Nocturnal hypoxemia: Comment: Nocturnal hypoxemia as recorded in the polysomnogram study , O2 sat below 88% for only 9.5 minutes. The reason for O2 desaturations could be sleep-related hypoventilation, Code(s): G47.34 - Idiopathic sleep related nonobstructive alveolar hypoventilation Category: Medical Plan: CONTINUE USING O2 2 L/MINUTE DURING SLEEP. MAY INCREASE TO 3 L/MINUTE IF HE FEELS SHORT OF BREATH. Coding Level of Care Code Est Pt Level 3 (22570) Diagnoses Restrictive airway disease J98.4 Nocturnal hypoxemia G47.34
== END 2023-10-06 11:23 | disposition home or self-care (01) ==
PROVIDERS: PCP Internal Medicine Geriatric Medicine; Visit Provider Internal Medicine
DX: J98.4 Other disorders of lung (principal); G47.34 Idiopathic sleep related nonobstructive alveolar hypoventilation
CPT/HCPCS: 99213

== ENCOUNTER → 2023-10-06 10:48 | Outpatient (BNVA) | payer BC, SELFPAY | PROVIDERS: PCP Internal Medicine Geriatric Medicine; Visit Provider Internal Medicine ==

== ENCOUNTER 2023-10-09 10:28 | Outpatient (AMB) | payer BC, SELFPAY ==
--- NOTE | 2023-10-09 10:51 | HO.SPINEOV ---
Intake Visit Reasons: cervical spondylosis Intake Note: Mr. Gabriel is here today c/o neck and shoulder pain. Cardiac Rehabilitation Specialist Required: No Allergies losartan Adverse Reaction (Intermediate, Verified 10/06/23 11:23) Cough Assessment & Plan Assessment & Plan (1) Chronic neck pain with history of cervical spinal surgery: Code(s): M54.2 - Cervicalgia; G89.28 - Other chronic postprocedural pain; Z98.890 - Other specified postprocedural states Category: Medical (2) Lumbar back pain with radiculopathy affecting left lower extremity: Code(s): M54.16 - Radiculopathy, lumbar region Category: Medical Plan Dear colleague Thank you for referring Miguel Gabriel to the office today with a chief complaint of neck pain and left leg pain. HPI: This 58-year-old male developed neck pain in 2009. He was evaluated [facility]. 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 Over the years symptoms progress with radiating pain down his right arm. He underwent a C4-C6 anterior diskectomy and fusion in 2017 at [facility] and a C6-7 laminectomy 2021 at [facility]. The patient states that he continues to have neck pain radiating to his shoulders. He describes a burning pain in the shoulder blades, neck and shoulders. He denies radiating pain down his arms. A 2nd complaint is a 6 month history of left leg pain that radiates to the outside of his left thigh. The pain is worse when he changes from a sitting to standing position, he notices shooting pain with abdominal increasing pressure. PMH: Hypertension, diabetes type 2 Medications: Percocet 3 times a day, Lyrica, Flexeril Allergies: Losartan Social history: . Disabled due to symptoms. Nonsmoker Physical Exam: Pleasant male. Height 6 for weight 246 lb. On inspection there is mild atrophy in the hypothenar region on the left. Reflexes are symmetrically intact. No pathological reflexes. Good strength. Straight leg raise is positive on the left side with radiating pain to the outside of his left leg. Radiological Studies: MRI done at [facility] on 09/10/2023 show status post anterior diskectomy and fusion C4-5 and C5-6 and posterior C6-7 decompression. There is a small syrinx behind the body of C6. There is no spinal cord compression. There is no nerve root compression. There is a left T1-2 to disc bulge without spinal cord compression. Impression/Plan: This patient is suffering from chronic pain in neck and shoulders. Differential diagnosis is a non fusion versus pain associated with a syrinx. I will obtain a CT of the cervical spine to assess the fusion status. I relayed to the patient that I do not think that surgery would be indicated unless there is a clear non fusion. I will also order an MRI of the lumbar spine to see if we can find a cause for his left lumbar radiculopathy. I will see him in follow-up after the tests are done Thank you for allowing me to participate in your patients care. total time spent was 50 minutes in counseling ,coordination of plan, personal review of imaging, surgical decision making and subsequent plan Jonathan Lange MD, PhD Spine Fellowship Trained Neurosurgeon Director, [facility] Orders: Orders MR lumbar spine wo con Today M54.16 - Radiculopathy, lumbar region CT cervical spine wo IV con Today G89.28 - Other chronic postprocedural pain, M54.2 - Cervicalgia, Z98.890 - Other specified postprocedural states Coding Level of Care Code New Pt Level 4 (71689) Diagnoses Chronic neck pain with history of cervical spinal surgery M54.2; G89.28; Z98.890 Lumbar back pain with radiculopathy affecting left lower extremity M54.16
== END 2023-10-09 11:30 | disposition home or self-care (01) ==
PROVIDERS: PCP Internal Medicine Geriatric Medicine; Referring Provider Internal Medicine Geriatric Medicine; Visit Provider Neurological Surgery
DX: M54.2 Cervicalgia (principal); G89.28 Other chronic postprocedural pain; Z98.890 Other specified postprocedural states; M54.16 Radiculopathy, lumbar region
CPT/HCPCS: 99204

== ENCOUNTER → 2023-10-09 10:28 | Outpatient (BNVA) | payer BC, SELFPAY | PROVIDERS: PCP Internal Medicine Geriatric Medicine; Visit Provider Neurological Surgery ==

== ENCOUNTER 2023-10-29 10:15 | Day surgery (SDC) | payer BC, SELFPAY ==
--- NOTE | 2023-07-07 11:01 | HO.ANESPROP2 ---
HPI - Anesthesia Eval Consult details Narrative: 57yo M for Colonoscopy PMF Active Problems Active Problems: All Active Problems Nocturnal hypoxemia (Acute) Calcium deposits of brain (Acute) Diabetes mellitus type 2 in obese (Acute) Excessive daytime sleepiness (Acute) Loud snoring (Acute) Cognitive impairment (Acute) Obese (Acute) HTN (hypertension) (Acute) Past Medical History Medical History (Updated 07/07/23 @ 11:02 by Pina Mary NP) HTN (hypertension) Nocturnal hypoxemia Diabetes mellitus type 2 in obese Family History Family History Mother Diabetes HTN (hypertension) Father Diabetes HTN (hypertension) Family/Other HTN (hypertension) Surgical History Surgical History Hx of cholecystectomy H/O Spinal surgery Social History Social History Alcohol intake: never Patient Tobacco Use Status: Former Tobacco user Meds Allergies Allergy/AdvReac Type Severity Reaction Status Date / Time losartan AdvReac Intermediate Cough Verified 06/15/23 13:28 Home Medications ?Medication ?Instructions ?Recorded ?Confirmed ?Last Taken ?Type atorvastatin 20 mg tablet 20 mg PO DAILY 10/03/22 Unknown History blood sugar diagnostic (OneTouch #10 ea 10/03/22 Unknown History Ultra Test strips) cyclobenzaprine 10 mg tablet 10 mg PO TID 10/03/22 Unknown History metformin 500 mg tablet 500 mg PO BID 10/03/22 Unknown History metoprolol tartrate 100 mg tablet 100 mg PO BID 10/03/22 Unknown History mometasone 0.1 % topical ointment topical DAILY 10/03/22 Unknown History multivitamin 1 tab PO DAILY 10/03/22 Unknown History oxycodone-acetaminophen 5 mg-325 1 tab PO Q8H PRN severe pain 10/03/22 Unknown History mg tablet pregabalin 100 mg capsule 100 mg PO BID 10/03/22 Unknown History sertraline 150 mg capsule 300 mg PO DAILY 10/03/22 Unknown History tadalafil 5 mg tablet 5 mg PO DAILY 10/03/22 Unknown History trazodone 100 mg tablet 200 mg PO BEDTIME PRN 10/03/22 Unknown History Exam Pertinent Lab Results Pertinent Lab Results: Laboratory Tests 01/26/23 10:33 Sodium 142 Potassium 4.3 Chloride 104 Carbon Dioxide 32 H BUN 12 Creatinine 0.96 Assessment and Plan Assessment Anesthesia Assessment: Chart Reviewed
--- NOTE | 2023-10-28 12:10 | HO.ANESPROP2 ---
Documented by User: Pina Mary NP 10/28/23 12:11 HPI - Anesthesia Eval Consult details Narrative: 58yo M for Colonoscopy O2 @ 2-3L QHS for nocturnal hypoxemia Anesthesia Pre-Procedure Meds Is the patient on any of the following meds?: SGLT2 Inhib PMFSH Active Problems Active Problems: All Active Problems Lumbar back pain with radiculopathy affecting left lower extremity (Acute) Chronic neck pain with history of cervical spinal surgery (Acute) Nocturnal hypoxemia (Acute) Restrictive airway disease (Acute) Calcium deposits of brain (Acute) Excessive daytime sleepiness (Acute) Loud snoring (Acute) Cognitive impairment (Acute) Obese (Acute) Past Medical History Medical History Restrictive airway disease Nocturnal hypoxemia Diabetes mellitus type 2 in obese HTN (hypertension) Family History Family History Mother Diabetes HTN (hypertension) Father Diabetes HTN (hypertension) Family/Other HTN (hypertension) Surgical History Surgical History History of cervical spinal surgery Hx of cholecystectomy H/O Spinal surgery Social History Social History Alcohol intake: never Patient Tobacco Use Status: Former Tobacco user Are you DNR?: No Advance Directives: No Advance Directives Information Provided: Yes Meds Allergies Allergy/AdvReac Type Severity Reaction Status Date / Time losartan AdvReac Intermediate Cough Verified 10/06/23 11:23 Home Medications ?Medication ?Instructions ?Recorded ?Confirmed ?Last Taken ?Type atorvastatin 20 mg tablet 20 mg PO DAILY 10/03/22 10/06/23 Unknown History blood sugar diagnostic (OneTouch #10 ea 10/03/22 10/06/23 Unknown History Ultra Test strips) cyclobenzaprine 10 mg tablet 10 mg PO TID 10/03/22 10/06/23 Unknown History metformin 500 mg tablet 500 mg PO BID 10/03/22 10/06/23 Unknown History metoprolol tartrate 100 mg tablet 100 mg PO BID 10/03/22 10/06/23 10/29/23 History mometasone 0.1 % topical ointment topical DAILY 10/03/22 10/06/23 Unknown History multivitamin 1 tab PO DAILY 10/03/22 10/06/23 Unknown History oxycodone-acetaminophen 5 mg-325 1 tab PO Q8H PRN severe pain 10/03/22 10/06/23 Unknown History mg tablet pregabalin 100 mg capsule 100 mg PO BID 10/03/22 10/06/23 Unknown History sertraline 150 mg capsule 300 mg PO DAILY 10/03/22 10/06/23 Unknown History tadalafil 5 mg tablet 5 mg PO DAILY 10/03/22 10/06/23 Unknown History trazodone 100 mg tablet 200 mg PO BEDTIME PRN 10/03/22 10/06/23 Unknown History empagliflozin 10 mg tablet 10 mg PO DAILY 10/28/23 10/24/23 History (Jardiance) Exam Pertinent Lab Results Pertinent Lab Results: Laboratory Tests 09/24/23 09:02 WBC 5.5 Hgb 15.4 Hct 47.9 Plt Count 129 L Sodium 143 Potassium 4.0 Chloride 107 Carbon Dioxide 27 BUN 14 Creatinine 0.98 Assessment and Plan Assessment Anesthesia Assessment: Chart Reviewed Documented by User: Sejal Glasgow MD 10/29/23 12:09 [facility] Past Medical History Medical History Restrictive airway disease Nocturnal hypoxemia Diabetes mellitus type 2 in obese HTN (hypertension) Family History Family History Mother Diabetes HTN (hypertension) Father Diabetes HTN (hypertension) Family/Other HTN (hypertension) Family history of problems with anesthesia: No Surgical History Surgical History History of cervical spinal surgery Hx of cholecystectomy H/O Spinal surgery History of Problems with Anesthesia: No Social History Social History Alcohol intake: never Patient Tobacco Use Status: Former Tobacco user Are you DNR?: No Advance Directives: No Advance Directives Information Provided: Yes Meds Allergies Allergy/AdvReac Type Severity Reaction Status Date / Time losartan AdvReac Intermediate Cough Verified 10/06/23 11:23 Home Medications ?Medication ?Instructions ?Recorded ?Confirmed ?Last Taken ?Type atorvastatin 20 mg tablet 20 mg PO DAILY 10/03/22 10/06/23 Unknown History blood sugar diagnostic (OneTouch #10 ea 10/03/22 10/06/23 Unknown History Ultra Test strips) cyclobenzaprine 10 mg tablet 10 mg PO TID 10/03/22 10/06/23 Unknown History metformin 500 mg tablet 500 mg PO BID 10/03/22 10/06/23 Unknown History metoprolol tartrate 100 mg tablet 100 mg PO BID 10/03/22 10/06/23 10/29/23 History mometasone 0.1 % topical ointment topical DAILY 10/03/22 10/06/23 Unknown History multivitamin 1 tab PO DAILY 10/03/22 10/06/23 Unknown History oxycodone-acetaminophen 5 mg-325 1 tab PO Q8H PRN severe pain 10/03/22 10/06/23 Unknown History mg tablet pregabalin 100 mg capsule 100 mg PO BID 10/03/22 10/06/23 Unknown History sertraline 150 mg capsule 300 mg PO DAILY 10/03/22 10/06/23 Unknown History tadalafil 5 mg tablet 5 mg PO DAILY 10/03/22 10/06/23 Unknown History trazodone 100 mg tablet 200 mg PO BEDTIME PRN 10/03/22 10/06/23 Unknown History empagliflozin 10 mg tablet 10 mg PO DAILY 10/28/23 10/24/23 History (Jardiance) Exam Airway Mallampati Class: II TM Dist: >3cm Heart: rrr Lungs: cta Assessment and Plan Assessment Anesthesia Assessment: Anesthesia Plan Discussed Final Anesthetic Review Family History of Problems with Anesthesia: No History of Problems with Anesthesia: No NPO: Yes ASA Class: III Final Preanesthetic Review: No Changes in Pt Med Stat, Meds/Allgs Chart Reviewed, Consent Obtained/Reviewed and Anes Risks/Benef Reviewed Patient Risk: Intermediate Procedure Risk: Low Anesthetic Plan Anesthetic Plan: MAC: Disposition: Standard PACU
[2023-10-29 10:25] VITALS: BP 155/78; PULSE 65; RESP 18; TEMP 36.9; O2SAT 97; BMI 32.2
[2023-10-29 10:36] LABS: Glucose, Whole Blood 134 mg/dL (60-115)
[2023-10-29] MEDS: Lactated Ringers 1,000 ML 100 ML IVCONT (10:49)
--- NOTE | 2023-10-29 11:32 | P.HPSUR_ITS ---
Pre-Procedural Eval Section A - 24 Hr Update-Section A only Date of Service: 10/29/23 Section B - Complete if H&P > 30 days Chief Complaint: Encounter for screening for malignant neoplasm of Relevant Family History (Specify if Yes): No Relevant Social History: None Present Medications: see Short Stay Collaborative assessment Medical History: Significant History (Nocturnal hypoxemia Restrictive airway d isease HTN (hypertension) Diabetes mellitus type 2 in obese) History of Previous Operations: Relevant previous surgery/procedure and date(s) ( Hx of cholecystectomy H/O Spinal surgery) Allergies: Allergies Allergy/AdvReac Type Severity Reaction Status Date / Time losartan AdvReac Intermediate Cough Verified 10/06/23 11:23 Review of Systems Sugical H&P ROS: Negative: Constitution, Cardiovascular, Respiratory, Neurological, Psychiatric, Hem-Onc, Allergic/Immunologic, Gastrointestinal, Genitourinary, Musculoskeletal, Integumentary, Endocrine and Eyes/Ears/Nose/Throat Exam Surgical H&P Exam: Normal: HEENT, Normal: Heart, Normal: Lungs, Normal: Extremities, Normal: Abdomen, Normal: Skin and Normal: Neurological Plan Diagnosis/Plan: Unchanged I have reviewed the history and physical and performed a pertinent physical examination on my patient. No changes have occurred unless specified. colonoscopy for screening for CRC Time Spent With Patient Time: Total time managing care of this patient today ____ minutes.
--- NOTE | 2023-10-29 13:02 | HO.OPN-COLON ---
Colonoscopy Operative Note Operative Note Date of Service: 10/29/23 Narrative: Operative Information Procedure Description: Colonoscopy Indication: Anesthesia: MAC COLONOSCOPY Instrument: Olympus variable stiffness pediatric scope 190L Colonoscopy Monitoring: Vital signs and clinical assessment, continuous EKG monitoring, Pulse oximetry, Carbon Dioxide monitoring and blood pressure monitoring were done throughout the procedure. Colon withdrawal time was 9 minutes. Procedure: The patient was placed in the left lateral decubitis position and pre-procedure medications were administered. After a digital rectal examination of the ano-rectum, the video colonoscope was inserted into the rectum and advanced through the colon to the cecum/TI. The colonoscope was slowly withdrawn in a retrograde panoramic fashion and the colon mucosa was carefully examined including a retroflexed view of the rectum. Findings and interventions are described below. Procedure Difficulty: moderate, pressure applied due to looping Findings: Terminal Ileum-not intubated Cecum:normal Ascending Colon: 7-8 mm sessile polyp removed with cold snare Transverse Colon -normal Descending Colon:normal Sigmoid Colon: normal Rectum: Retroflexion with small internal hemorrhoids seen, grade I Anorectum - normal Intervention: cold snare Colon preparation: [place] Bowel Preparation Scale Right colon; 1-2 Transverse colon: 2 Left colon; 2 (0 = Unprepared colon segment with mucosa not seen due to solid stool that cannot be cleared. 1 = Portion of mucosa of the colon segment seen, but other areas of the colon segment not well seen due to staining, residual stool and/or opaque liquid. 2 = Minor amount of residual staining, small fragments of stool and/or opaque liquid, but mucosa of colon segment seen well. 3 = Entire mucosa of colon segment seen well with no residual staining, small fragments of stool or opaque liquid) Impression and Post Procedure Diagnosis: colon polyp internal hemorrhoids Plan: High fiber diet leaflet Avoid straining at stool, epsom salts and sitz bath, anusol supps or cream Repeat Colonoscopy in 5 years due to areas of fair prep and colon prep or earlier if clinically indicated Above findings were reviewed with the patient and relevant handouts were provided if indicated.
[2023-10-29 13:10] VITALS: BP 151/90; PULSE 68; RESP 16; TEMP 36.1; O2SAT 97
[2023-10-29 13:15] VITALS: BP 163/95; PULSE 77; RESP 15; O2SAT 95
[2023-10-29 13:30] VITALS: BP 149/62; PULSE 69; RESP 17; TEMP 36.6; O2SAT 96
== END 2023-10-29 13:52 | disposition home or self-care (01) ==
PROVIDERS: PCP Internal Medicine Geriatric Medicine; Visit Provider Internal Medicine Gastroenterology
PROC: 0DJD8ZZ Inspection of Lower Intestinal Tract, Via Natural or Artificial Opening Endoscopic (ICD-10-PCS; CPT 45378; principal; 2023-10-29 12:40)
DX: Z12.11 Encounter for screening for malignant neoplasm of colon (principal); D12.2 Benign neoplasm of ascending colon; K56.2 Volvulus; K64.0 First degree hemorrhoids; E11.9 Type 2 diabetes mellitus without complications; I10 Essential (primary) hypertension; Z87.891 Personal history of nicotine dependence
CPT/HCPCS: 45385; 82947; 88305; J2704

== ENCOUNTER → 2023-10-29 10:15 | Outpatient (BNV) | payer BC, SELFPAY | PROVIDERS: PCP Internal Medicine Geriatric Medicine; Visit Provider Internal Medicine Gastroenterology | DX: Z12.11 Encounter for screening for malignant neoplasm of colon (principal); K63.5 Polyp of colon; K64.0 First degree hemorrhoids | CPT/HCPCS: 45385 ==

== ENCOUNTER 2024-04-11 10:26 | Outpatient (AMB) | payer BC, SELFPAY ==
[2024-04-11 11:09] VITALS: BP 130/80; PULSE 85; O2SAT 94; BMI 29.7
--- NOTE | 2024-04-11 11:09 | A.OFFVIS_ITS ---
Vital Signs 04/11/24 11:09 Height 6 ft 4 in Weight 244 lb BMI 29.7 BP 130/80 Blood Pressure Location Lt brachial Position Sitting Pulse 85 Pulse Source Pulse Oximeter Pulse Oximetry (%) 94 Oxygen Delivery Method Room Air Intake Visit Reasons: Cough Intake Note: pt is here for follow up and he is feeling excellent, and is using oxygen at night. [employer] Required: No Allergies losartan Adverse Reaction (Intermediate, Verified 04/11/24 11:29) Cough Medication List - Last Reconciled 04/11/24 by Delia Jim MD atorvastatin 20 mg PO DAILY blood sugar diagnostic ([employer] Ultra Test strips) As directed cyclobenzaprine 10 mg PO TID empagliflozin (Jardiance) 10 mg PO DAILY metformin 500 mg PO BID metoprolol tartrate 100 mg PO BID mometasone 0.1% topical DAILY multivitamin 1 tab PO DAILY oxycodone-acetaminophen 5-325 mg 1 tab PO Q8H PRN pregabalin 100 mg PO BID sertraline 300 mg PO DAILY tadalafil 5 mg PO DAILY trazodone 200 mg PO BEDTIME PRN Do you need a note to return to daycare/school/sports/work: No HPI HPI Cough: Details: This 58 years old gentleman is here for 6 months follow-up. He has nocturnal hypoxemia due to sleep-related hypoventilation. He is being treated with O2 2 L/minute at night and with that he is very happy. He claims that his sleep is good and he wakes up refreshed. He is full of energy during the daytime. He is exercising and has lost about 20 lb in the last 6 months. [facility] Medical History Restrictive airway disease Nocturnal hypoxemia Diabetes mellitus type 2 in obese HTN (hypertension) Surgical History History of cervical spinal surgery Hx of cholecystectomy H/O Spinal surgery Family History Mother Diabetes HTN (hypertension) Father Diabetes HTN (hypertension) Family/Other HTN (hypertension) Social History Alcohol intake: never Patient Tobacco Use Status: Former Tobacco user Review of Systems Const All systems reviewed & are unremarkable except as noted in HPI and below Reports weakness (Of upper extremities) Eyes Reports no additional complaints ENT Reports no additional complaints and Reports neck pain Card Denies chest pain, Denies syncope, Denies irregular heart rhythm and Denies leg edema Resp Reports as per HPI GI Reports no additional complaints Reports no additional complaints Musc Reports back pain, Reports muscle weakness (FEELS WEAK IN THE UPPER EXTREMITIES,) and Reports neck pain Skin/Breast Reports system reviewed and no additional complaints, except as documented Neuro Denies syncope and Reports weakness (Of upper extremities) Psych Reports depression Endo Reports no additional complaints Santos/Lymph Reports no additional complaints Aller/Immun Reports no additional complaints Physical Exam Vital Signs: Last Vital Signs Pulse 85 04/11/24 11:09 BP 130/80 04/11/24 11:09 Pulse Ox 94 04/11/24 11:09 Oxygen Delivery Method Room Air 04/11/24 11:09 BMI result Body Mass Index 29.7 Const General: healthy appearing, comfortable, no acute distress, alert and awake Orientation/consciousness: patient oriented x3 HEENT Head: Yes normal to inspection General nose exam: No nasal polyps present and No nasal discharge present Face and sinus: Yes sinuses nontender Mouth: oropharynx normal Teeth and gingiva: edentulous Throat: Yes posterior oropharynx normal Eyes General: appearance normal, both eyes and all related structures Neck Neck: Yes normal visual inspection, Yes no lymphadenopathy, Yes trachea midline, Yes no JVD and Yes other (Surgical scars on the back of the neck) Thyroid: Thyroid normal Chest Chest palpation & inspection: normal inspection of the chest, normal palpation of entire chest wall and no tenderness Resp Effort & Inspection: normal respiratory effort Auscultation: clear to auscultation bilaterally, no crackles, no rales and no wheezes Cardio Palpation: normal PMI Rate: regular rate Rhythm: regular rhythm Heart sounds: no gallops and no murmurs Peripheral pulses: Peripheral pulses 2+ throughout GI Palpation (GI): Soft to palpation, nontender, No hepatosplenomegaly present and no masses Auscultation: normal bowel sounds Back/Spine/Pelvis Thoracic/Lumbar Spine: thoracic and lumbar spine normal to inspection and thoraco-lumbar ROM limited Skin General skin exam: no rashes or lesions noted Neuro General: patient oriented x3 and no focal motor deficits Cranial nerves: Yes CN's II-XII intact bilaterally Extrem General: Yes normal to inspection, Yes no clubbing, cyanosis or edema and Yes no calf tenderness Psych Appearance: grossly normal and well kempt Speech and movement: Normal speech and movement present Assessment & Plan Assessment & Plan (1) Restrictive airway disease: Comment: HE HAS MILD RESTRICTIVE LUNG DISORDER, TLC 72% THERE IS NO OBSTRUCTIVE AIRWAY DISORDER. Code(s): J98.4 - Other disorders of lung Category: Medical Plan: With the weight loss I think his restrictive component should have improved. But still advised to keep on doing deep breathing exercises . (2) Nocturnal hypoxemia: Comment: Nocturnal hypoxemia as recorded in the polysomnogram study , O2 sat below 88% for only 9.5 minutes. The reason for O2 desaturations could be sleep-related hypoventilation, Subjectively he has felt much better since he is on O2 therapy at night. Code(s): G47.34 - Idiopathic sleep related nonobstructive alveolar hypoventilation Category: Medical Plan: Advised to continue using O2 2 L/minute at night . Now that he has lost some weight I think, his nocturnal hypoxemia may have improved. At some point we will do overnight oximetry recording on room air. But at present he is very anxious to keep on using the oxygen. Coding Level of Care Code Est Pt Level 3 (17908) Diagnoses Restrictive airway disease J98.4 Nocturnal hypoxemia G47.34
== END 2024-04-11 11:29 | disposition home or self-care (01) ==
PROVIDERS: PCP Internal Medicine Geriatric Medicine; Visit Provider Internal Medicine
DX: J98.4 Other disorders of lung (principal); G47.34 Idiopathic sleep related nonobstructive alveolar hypoventilation
CPT/HCPCS: 99213

== ENCOUNTER → 2024-04-11 10:26 | Outpatient (BNVA) | payer BC, SELFPAY | PROVIDERS: PCP Internal Medicine Geriatric Medicine; Visit Provider Internal Medicine ==

== ENCOUNTER 2024-12-01 08:45 | Outpatient (REF) | payer BC, SELFPAY ==
--- OUTSIDE RECORDS SUMMARY | 2024-11-29 09:30 | XMS_ITS | Encounter Summary ---
Author Organization [employer] Address [address] [facility] 7t [place] [address] Care Team Providers Care Bottom Cager Name Role Phone Dong Costello MD Primary Care Provider [phone] Reason for Referral * Consultation (Routine) - Authorized Specialty Diagnoses / Procedures Referred By Contac t Referred To Contact Pain Medicine Diagnoses Cervical spondylosis with myelopathy Chronic neck pain Dong Costello MD [address] [place] [id number] Phone: tel: fax: [facility], [address] [place], [place] Phone: tel: fax: Referral ID Status Reason Start Date Expiration Date Visits Requested Visits Authorized [id number] Authorized Specialty Services Required 11/29/2024 11/29/2025 1 1 * Medications - Closed Specialty Diagnoses / Procedures Referred By Contac t Referred To Contact Diagnoses Chronic neck pain Dong Costello MD [address] [place] [address] Phone: tel: fax: Referral ID Status Reason Start Date Expiration Date Visits Re quested Visits Authorized [id number] Closed 1 1 Reason for Visit * Reason Comments Follow-up Encounter Details Date Type Department Care Team (Late st Contact Info) Description 11/29/2024 9:30 AM EDT Office Visit [facility] [address] [facility] [place] [address] Name, MD Dong [place] [address] Type 2 diabetes mellitus without complication, without long-term current use of insulin (CMS/HCC) (Primary Dx); Screening for prostate cancer; Depression with anxiety; Cervical spondylosis with myelopathy; Chronic neck pain Social History Tobacco Use Types Packs/Day Years Used Date Smoking Tobacco: Former Cigarettes 0 03/16/1993 - 03/16/2003 Smokeless Tobacco: Never Tobacco Cessation:Counseling Given: Not Answered Alcohol Use Standard Drinks/Week Comments Never 0 (1 standard drink = 0.6 oz pur e alcohol) Alcohol Answer Date Recorded Frequency of Alcohol Consumption Not on file 09/07/2023 Average Number of Drinks Not on file 024 Frequency of Binge Drinking Not on file 08/15 Score 0 09/07/2023 Depression Answer Date Recorded Patient Health Questionnaire-9 Score 22 11/29/2024 Patient Health Questionnaire-9 Score 22 11/29/2024 Last PHQ-9: Questionnaire Data Not on file 0 11/29/2024 Housing Stability Answer Date Recorded What is your housing situation today? I have wilber zhou 11/29/[address] you li ve. Do you have problems with any of the following? None of the above 11/29/2024 Food Insecurity Answer Date Recorded Within the past 12 months, y ou worried that your food would run out before you got money to buy more: Never True 11/29/2024 Within the past 12 months,th e food you bought just didn't last and you didn't have enough money to get more: Never True Transportation Answer Date Recorded In the past 12 months, has l ack of transportation kept you from medical appts, meetings, work or from getting things needed for daily living? No 11/29/2024 Utilities Answer Date Recorded In the past 12 months, has t he electric, gas, oil or water company threatened to shut off services in your home? No 11/29/2024 Depression Answer Date Recorded Patient Health Questionnaire-2 Score 3 11/29/2024 Internet Access Answer Date Recorded Internet Access Q1 Yes 11/29/2024 Internet Access Q2 Not on file 11/29/2024 Sex and Gender Information Value Date Recorded Sex Assigned at Male 01/13/2022 10:31 AM EDT Legal Sex Male 10:31 AM EDT Gender Identity Male 01/13/2022 10:31 AM EDT Sexual Orientation Straight 01/13/2022 10 :31 AM EDT documented as of this encounter Last Filed Vital Signs Vital Sign Reading Time Taken Comments Blood Pressure 136/82 11/29/2024 9:44 AM EDT Pulse 78 11/29/2024 9:44 AM EDT Temperature 36.8 C (98.2 F) 11/29/2024 9:44 AM EDT Respiratory Rate 14 11/29/2024 9:44 AM EDT Oxygen Saturation 97% 11/29/2024 9:44 AM EDT Inhaled Oxygen Concentration - - Weight 109 kg (240 lb 6.4 oz) 11/29/2024 9:44 AM EDT Height 193 cm (6' 4 ) 11/29/2024 9:44 AM EDT Body Mass Index 29.26 11/29/2024 9:44 AM EDT documented in this encounter Functional Status * Over the past 2 weeks, how often have you been bothered by any of the following problems? Question Answer Date of Assessment Author Patient Health Questionnaire -2 Score 3 11/29/2024 9:49 AM EDT Wayne Waddell MA * Little interest or pleasure in doing things Answer Date of Assessment Author Several days 11/29/2024 9:49 AM EDT Braulio Waddell MA * Feeling down, depressed, or hopeless Answer Date of Assessment Author More than half the days 11/29/2024 9:49 AM EDT Braulio Mon MA * Trouble falling or staying asleep, or sleeping too much Answer Date of Assessment Author Nearly every day 11/29/2024 9:49 AM EDT Braulio Waddell MA * Feeling tired or having little energy Answer Date of Assessment Author More than half the days 11/29/2024 9:49 AM EDT Braulio Mon MA * Poor appetite or overeating Answer Date of Assessment Author More than half the days 11/29/2024 9:49 AM EDT Braulio Mon MA * Feeling bad about yourself - or that you are a failure or have let yourself or your family down Answer Date of Assessment Author Nearly every day 11/29/2024 9:49 AM Braulio Presley MA * Trouble concentrating on things, such as reading the newspaper or watching television Answer Date of Assessment Author Nearly every day 11/29/2024 9:49 AM Braulio Presley MA * Moving or speaking so slowly that other people could have noticed? Or the opposite - being so fidgety or restless that you have been moving around a lot more than usual. Answer Date of Assessment Author Nearly every day 11/29/2024 9:49 AM Braulio Presley MA * Thoughts that you would be better off or hurting yourself in some way Answer Date of Assessment Author Nearly every day 11/29/2024 9:49 AM Braulio Presley MA * Patient Health Questionnaire-9 Score Answer Date of Assessment Author 11/29/2024 9:49 AM Braulio Presley MA * How difficult have these problems made it for you to do your work, take care of things at home, or get along with other people? Answer Date of Assessment Author Very difficult 11/29/2024 9:49 AM Braulio Presley MA * Over the last 2 weeks, how often have you been bothered by any of the following problems? Question Answer Date of Assessment Author Feeling nervous, anxious, or on edge 3 11/29/2024 9:49 AM Wayne Presley MA Not being able to stop or control worrying 3 11/29/2024 9:49 AM Wayne Presley MA Worrying too much about different things 3 11/29/2024 9:49 AM Wayne Presley MA Trouble relaxing 3 11/29/2024 9:49 AM EDT Braulio Mon MA Being so restless that it is hard to sit still 3 11/29/2024 9:49 AM EDT Wayne Waddell MA Becoming easily annoyed or irritable 0 11/29/2024 9:49 AM EDT Wayne Waddell MA Feeling afraid as if somethi ng awful might happen 3 11/29/2024 9:49 AM EDT Wayne Waddell MA DEVON-7 Total Score 18 11/29/2024 9:49 AM EDT Braulio Waddell MA documented as of this encounter Progress Notes * Dong Costello, - 11/29/2024 9:30 AM EDT Subjective Patient ID: Miguel Gabriel is a 59 y.o. male who presents for Follow-up. Patient comes for a follow-up visit. He is in constant pain shooting down from the neck to the right arm. He has occasional right hand spasms. His right thigh muscles are little bit atrophied. He hasa personal history of cervical spine severe DJD with myelopathy, cervical syrinx, previous cervicalspine surgery for fusion of several vertebrae. The patient has seen neurosurgery at [facility] and was told that surgical intervention is not possible at this point. He is maintained on a regimen of Percocet and pregabalin for control of the pain however he still has daily severe pain. He also noted significant drowsiness on the pregabalin. Prior to using pregabalin he was on gabapentin that was causinghim less drowsiness and was helpful for the pain. He is quite depressed and anxious because of his symptoms. He is not suicidal. He is not interested in referral to behavioral health. He uses sertraline daily. His blood sugar is well-controlled on his current medication regimen. He is due to recheck fasting blood work. Review of Systems Constitutional: Negative for chills, fatigue and fever. HENT: Negative for sore throat. Respiratory: Negative for cough, chest tightness and shortness of breath. Cardiovascular: Negative for chest pain, palpitations and leg swelling. Gastrointestinal: Negative for abdominal pain and blood in stool. Neurological: See HPI Objective Vitals: 11/29/24 0944 BP: 136/82 BP Location: Left arm Patient Position: Sitting BP Cuff Size: Adult Pulse: 78 Resp: 14 Temp: 98.2 ??F (36.8 ??C) TempSrc: Temporal SpO2: 97% Weight: 240 lb 6.4 oz (109 kg) Height: 6' 4 (1.93 m) Physical Exam Constitutional: Appearance: Normal appearance. Cardiovascular: Rate and Rhythm: Normal rate and regular rhythm. Heart sounds: No murmur heard. Pulmonary: Effort: Pulmonary effort is normal. No respiratory distress. Breath sounds: No wheezing, rhonchi or rales. Abdominal: Palpations: Abdomen is soft. Tenderness: There is no abdominal tenderness. Musculoskeletal: Right lower leg: No edema. Left lower leg: No edema. Neurological: Mental Status: He is alert. Lab Results Component Value Date HGBA1C 6.0 (A) 11/29/2024 HGBA1C 5.9 09/24/2023 HGBA1C 6.7 (A) 05/27/2023 HGBA1C 6.5 (A) 09/09/2022 HGBA1C 6.4 (A) 03/28/2022 HGBA1C 5.7 (H) 12/06/2021 HGBA1C 6.0 (H) 10/21/2019 HGBA1C 6.0 (H) 10/21/2019 Assessment/Plan Diagnoses and all orders for this visit: Type 2 diabetes mellitus without complication, without long-term current use of insulin ([facility]) Comments: Continue current meds Avoid sweets Check fasting blood work listed below Orders: - POCT Glucose - POCT Hgb A1c - CBC auto differential; Future - Comprehensive Metabolic Panel; Future - Lipid Panel, Standard; Future - PSA,Total; Future - Albumin, Random Urine W/Creatinine; Future Screening for prostate cancer Comments: Check PSA Orders: - CBC auto differential; Future - Comprehensive Metabolic Panel; Future - Lipid Panel, Standard; Future - PSA,Total; Future - Albumin, Random Urine W/Creatinine; Future Depression with anxiety Comments: Continue Sertraline. He is not interested in referral to behavioral health for counseling Orders: - CBC auto differential; Future - Comprehensive Metabolic Panel; Future - Lipid Panel, Standard; Future - PSA,Total; Future - Albumin, Random Urine W/Creatinine; Future Cervical spondylosis with myelopathy Comments: The patient seems to be having side effects to the pregabalin. I will discontinue the pregabalin and put him back on gabapentin because of his symptoms of right arm radiculopathy. Continue current dose of Percocet. I suggested referral to pain clinic. He tells me that in the past he only had very brief response to cervical spine injections done at [facility] pain clinic. I suggested referral to [facility] pain clinic for a second opinion and he agreed. Orders: - gabapentin (Neurontin) 800 MG tablet; Take 1 tablet (800 mg) by mouth 3 times daily. - CBC auto differential; Future - Comprehensive Metabolic Panel; Future - Lipid Panel, Standard; Future - PSA,Total; Future - Albumin, Random Urine W/Creatinine; Future - Referral to Pain Medicine; Future Chronic neck pain Orders: - oxyCODONE-acetaminophen (Percocet) 5-325 MG tablet; Take 1 tablet by mouth every 8 (eight) hours if needed for severe pain or moderate pain for up to 28 days. - CBC auto differential; Future - Comprehensive Metabolic Panel; Future - Lipid Panel, Standard; Future - PSA,Total; Future - Albumin, Random Urine W/Creatinine; Future - Referral to Pain Medicine; Future documented in this encounter Plan of Treatment Scheduled Orders Name Type Priority Associated Diagnoses Orde r Schedule CBC auto differential Lab Routine Type 2 diabetes mellitus without complication, without long-term current use of insulin (CMS/HCC) Cervical spondylosis with myelopathy Chronic neck pain Depression with anxiety Screening for prostate cancer Expected: 11/29/2024 (Approximate), Expires: 11/29/2025 Comprehensive Metabolic Panel Lab Routine Type 2 diabetes mellitus without complication, without long-term current use of insulin (CMS/HCC) Cervical spondylosis with myelopathy Chronic neck pain Depression with anxiety Screening for prostate cancer Expected: 11/29/2024 (Approximate), Expires: 11/29/2025 Lipid Panel, Standard Lab Routine Type 2 diabetes mellitus without complication, without long-term current use of insulin (CMS/HCC) Cervical spondylosis with myelopathy Chronic neck pain Depression with anxiety Screening for prostate cancer Expected: 11/29/2024 (Approximate), Expires: 11/29/2025 PSA,Total Lab Routine Type 2 diabetes mellitus without complication, without long-term current use of insulin (CMS/HCC) Cervical spondylosis with myelopathy Chronic neck pain Depression with anxiety Screening for prostate cancer Expected: 11/29/2024, Expires: 11/29/2025 Albumin, Random Urine W/Creatinine Lab Routine Type 2 diabetes mellitus without complication, without long-term current use of insulin ([facility]) Cervical spondylosis with myelopathy Chronic neck pain Depression with anxiety Screening for prostate cancer Expected: 11/29/2024 (Approximate), Expires: 11/29/2025 Scheduled Referrals Name Type Priority Associated Diagnoses Orde r Schedule Referral to Pain Medicine Outpatient Referral Routine Cervical spondylosis with myelopathy Chronic neck pain Expected: 11/29/2024 (Approximate), Expires: 11/29/2025 documented as of this encounter Procedures Procedure Name Priority Date/Time Associated Diagnosis Comments POCT GLYCATED HEMOGLOBIN, TOTAL Routine 11/29/2024 9:45 AM EDT Type 2 diabetes mellitus without complication, without long-term current use of insulin ([facility]) POCT GLUCOSE Routine 11/29/2024 9:45 AM EDT Type 2 diabetes mellitus without complication, without long-term current use of insulin ([facility]) documented in this encounter Results * (ABNORMAL) POCT Hgb A1c (11/29/2024 9:45 AM EDT) Hemoglobin A1C 6.0(A) 4.0 - 5.7 % QC Media Lot # [id number] Lot# Expiration Date 42,427 Blood 11/29/2024 9:45 AM EDT us Dong Costello MD POINT OF CARE TEST ENTER/EDIT OR DERABLES Final Result * POCT Glucose (11/29/2024 9:45 AM EDT) Glucose Blood, POC 127 60 - 200 mg/dL QC Media Lot # [id number] Lot# Expiration Date 31,126 Blood Capillary blood specimen / Unknown 11/29/2024 9:45 AM EDT us Dong Name MD POINT OF CARE TEST ENTER/EDIT OR DERABLES Final Result documented in this encounter Visit Diagnoses Diagnosis Type 2 diabetes mellitus without complication, without long-term current use of insulin ([facility])- Primary Screening for prostate cancer Special screening for malignant neoplasm of prostate Depression with anxiety Dysthymic disorder Cervical spondylosis with myelopathy Chronic neck pain Cervicalgia documented in this encounter Additional Health Concerns Assessment Noted Time PHQ-9 Depression Total Score: 22 025 9:49 AM EDT documented as of this encounter Care Teams Bottom Cager Relationship Specialty Start Date End Date Name, MD Dong [address] [place] [address] PCP - General Family Medicine 10/14/18 documented as of this encounter
--- OUTSIDE RECORDS SUMMARY | 2024-12-01 10:02 | XMS_ITS | Encounter Summary ---
Author Organization [employer] Address [address] [facility] [address] 7t [place] [address] Care Team Providers Care Assembler Flexible Leads Name Role Phone Name, Dong LONDON Primary Care Provider [phone] Reason for Visit * Reason Comments Med Refill Encounter Details Date Type Department Care Team ([facility] st Contact Info) Description 12/29/2022 Refill [facility] MEDICINE [address] [place], [place] [phone] Name, MD Dong [address] [place] [address] Erectile dysfunction, unspecified erectile dysfunction type Social History Tobacco Use Types Packs/Day Years Used Date Smoking Tobacco: Never Smokeless Tobacco: Never Alcohol Use Standard Drinks/Week Comments Never 0 (1 standard drink = 0.6 oz pur e alcohol) Housing Stability Answer Date Recorded What is your housing situation today? I have wilber zhou 12/29/[address] you li ve. Do you have problems with any of the following? None of the above 12/29/2022 Food Insecurity Answer Date Recorded Within the past 12 months, y ou worried that your food would run out before you got money to buy more: Never True 12/29/2022 Within the past 12 months,th e food you bought just didn't last and you didn't have enough money to get more: Never True Transportation Answer Date Recorded In the past 12 months, has l ack of transportation kept you from medical appts, meetings, work or from getting things needed for daily living? No 12/29/2022 Utilities Answer Date Recorded In the past 12 months, has t he electric, gas, oil or water company threatened to shut off services in your home? No 12/29/2022 Depression Answer Date Recorded Patient Health Questionnaire-2 Score 0 03/28/2022 Sex and Gender Information Value Date Recorded Sex Assigned at Male 01/13/2022 10:31 AM EDT Legal Sex Male 10:31 AM EDT Gender Identity Male 01/13/2022 10:31 AM EDT Sexual Orientation Straight 01/13/2022 10 :31 AM EDT documented as of this encounter Plan of Treatment Not on file documented as of this encounter Visit Diagnoses Diagnosis Erectile dysfunction, unspecified erectile dysfunction type documented in this encounter Care Teams Assembler Flexible Leads Relationship Specialty Start Date End Date Name, MD Dong [address] [place] [address] PCP - General Family Medicine 10/14/18 documented as of this encounter
--- OUTSIDE RECORDS SUMMARY | 2024-12-01 10:02 | XMS_ITS | Encounter Summary ---
Author Organization [employer] Address [address] [facility] 7 [place] [address] Care Team Providers Care Commercial Real Estate Manager Name Role Phone Name, Dong LONDON Primary Care Provider [phone] Reason for Visit * Reason Comments Med Refill Encounter Details Date Type Department Care Team (Late st Contact Info) Description 11/27/2022 Refill [facility] MEDICINE [address] [place] [address] Name, MD Dong [address] [place] [address] Social History Tobacco Use Types Packs/Day Years Used Date Smoking Tobacco: Never Smokeless Tobacco: Never Alcohol Use Standard Drinks/Week Comments Never 0 (1 standard drink = 0.6 oz pur e alcohol) Depression Answer Date Recorded Patient Health Questionnaire-2 [...] documented as of this encounter Visit Diagnoses Not on filedocumented in this encounter Care Teams Commercial Real Estate Manager Relationship Specialty Start Date End Date NameDong MD [address] [place] [address] PCP - General Family Medicine 10/14/18 documented as of this encounter
--- OUTSIDE RECORDS SUMMARY | 2024-12-01 10:02 | XMS_ITS | Encounter Summary ---
Author Organization [employer] Address [address] [facility] 7 [place] [address] Care Team Providers Care Furnace Door Tender Name Role Phone Name, Dong LONDON Primary Care Provider [phone] Reason for Visit * Reason Comments Med Refill Encounter Details Date Type Department Care Team (Late st Contact Info) Description 11/29/2022 Refill [facility] MEDICINE [address] [place] [address] Name, MD Dong [address] [place] [address] Social History Tobacco Use Types Packs/Day Years [...] on filedocumented in this encounter Care Teams Furnace Door Tender Relationship Specialty Start Date End Date NameDong MD [address] [place] [address] PCP - General Family Medicine 10/14/18 documented as of this encounter
--- OUTSIDE RECORDS SUMMARY | 2024-12-01 10:03 | XMS_ITS | Encounter Summary ---
Author Organization [employer] Address [address] [facility] [address] 7[address] [place] [address] Care Team Providers Care Certified Diabetes Educator Name Role Phone Name, Dong LONDON Primary Care Provider [phone] Reason for Visit * Reason Comments Med Refill Encounter Details Date Type Department Care Team (Late st Contact Info) Description 11/23/2024 Refill [facility] MEDICINE [address] [place], [place] [phone] Name, MD Dong [address] [place], [place] [phone] Cervical spondylosis with myelopathy; Chronic neck pain Social History Tobacco Use Types Packs/Day Years Used Date Smoking Tobacco: Former Cigarettes 0 03/16/1993 - 03/16/2003 Smokeless Tobacco: Never Alcohol Use Standard Drinks/Week Comments Never 0 (1 standard drink = 0.6 oz pur e alcohol) Alcohol Answer Date Recorded Frequency of Alcohol Consumption Not on file 09/07/2023 Average Number of Drinks Not on file 024 Frequency of Binge Drinking Not on file 08/15 Score 0 09/07/2023 Depression Answer Date Recorded Patient Health Questionnaire-9 Score 0 05/27/2023 Patient Health Questionnaire-9 Score 0 05/27/2023 Last PHQ-9: Questionnaire Data Not on file 0 05/27/2023 Housing Stability Answer Date Recorded What is your housing situation today? I have wilber zhou 05/27/[address] you li ve. Do you have problems with any of the following? None of the above 05/27/2023 Food Insecurity Answer Date Recorded Within the past 12 months, y ou worried that your food would run out before you got money to buy more: Never True 05/27/2023 Within the past 12 months,th e food you bought just didn't last and you didn't have enough money to get more: Never True Transportation Answer Date Recorded In the past 12 months, has l ack of transportation kept you from medical appts, meetings, work or from getting things needed for daily living? No 05/27/2023 Utilities Answer Date Recorded In the past 12 months, has t he electric, gas, oil or water company threatened to shut off services in your home? No 05/27/2023 Depression Answer Date Recorded Patient Health Questionnaire-2 Score 0 05/27/2023 Sex and Gender Information Value Date Recorded Sex Assigned at Male 01/13/2022 10:31 AM EDT Legal Sex Male 10:31 AM EDT Gender Identity Male 01/13/2022 10:31 AM EDT Sexual Orientation Straight 01/13/2022 10 :31 AM EDT documented as of this encounter Plan of Treatment Not on file documented as of this encounter Visit Diagnoses Diagnosis Cervical spondylosis with myelopathy Chronic neck pain Cervicalgia documented in this encounter Additional Health Concerns Assessment Noted Time PHQ-9 Depression Total Score: 0 05/27/19 24 9:32 AM EDT documented as of this encounter Care Teams Certified Diabetes Educator Relationship Specialty Start Date End Date Name, MD Dong [address] [place] [address] PCP - General Family Medicine 10/14/18 documented as of this encounter
--- OUTSIDE RECORDS SUMMARY | 2024-12-01 10:03 | XMS_ITS | Encounter Summary ---
Author Organization [employer] Address [address] [facility] [facility] [address] [place] [address] Care Team Providers Care Jackhammer Splitter Operator Name Role Phone Name, Dong LONDON Primary Care Provider [phone] Reason for Visit * Reason Onset Date Comments Med Refill 11/17/2023 Encounter Details Date Type Department Care Team (Late st Contact Info) Description 11/17/2023 Refill [facility] MEDICINE [address] [place], [place] [phone] Name, MD Dong [address] [place], [place] [phone] Cervical spondylosis with myelopathy; Chronic neck pain [...] documented as of this encounter Care Teams Jackhammer Splitter Operator Relationship Specialty Start Date End Date Name, MD Dong [address] [place] [address] PCP - General Family Medicine 10/14/18 documented as of this encounter
--- OUTSIDE RECORDS SUMMARY | 2024-12-01 10:03 | XMS_ITS | Encounter Summary ---
Author Organization [employer] Address [address] [place] [address] Care Team Providers Care Flight Test Engineer Name Role Phone Name, Dong LONDON Primary Care Provider [phone] Reason for Visit * Reason Comments Med Refill Encounter Details Date Type Department Care Team ([facility] st Contact Info) Description 01/28/2024 Refill [facility] MEDICINE [address] [place], [place] [phone] Name, MD Dong [address] [place] [address] Social History Tobacco Use Types Packs/Day Years [...] Diagnoses Not on filedocumented in this encounter Additional Health Concerns Assessment Noted Time PHQ-9 Depression Total Score: 0 05/27/19 24 9:32 AM EDT documented as of this encounter Care Teams Flight Test Engineer Relationship Specialty Start Date End Date Name, MD Dong [address] [place] [address] PCP - General Family Medicine 10/14/18 documented as of this encounter
--- OUTSIDE RECORDS SUMMARY | 2024-12-01 10:03 | XMS_ITS | Encounter Summary ---
Author Organization [employer] Address [address] [place] [address] Care Team Providers Care Site Safety Representative Name Role Phone Name, Dong LONDON Primary Care Provider [phone] Reason for Visit * Reason Comments Med Refill Encounter Details Date Type Department Care Team ([facility] st Contact Info) Description 11/13/2023 Refill [facility] MED & PEDS [address] [place], [place] [phone] Name, MD Dong [address] [place] [address] Social History Tobacco Use Types Packs/Day Years [...] documented as of this encounter Care Teams Site Safety Representative Relationship Specialty Start Date End Date Name, MD Dong [address] [place] [address] PCP - General Family Medicine 10/14/18 documented as of this encounter
--- OUTSIDE RECORDS SUMMARY | 2024-12-01 10:03 | XMS_ITS | Encounter Summary ---
Author Organization [employer] Address [address] [place] [address] Care Team Providers Care Route Supervisor Name Role Phone Name, Dong LONDON Primary Care Provider [phone] Reason for Visit * Reason Comments Med Refill Encounter Details Date Type Department Care Team (Late st Contact Info) Description 05/27/2024 Refill [facility] MEDICINE [address] [place] [address] Khushboo Munson DO [address] [place] [address] Social History Tobacco Use Types Packs/Day Years [...] documented as of this encounter Care Teams Route Supervisor Relationship Specialty Start Date End Date Name, MD Dong [address] [place] [address] PCP - General Family Medicine 10/14/18 documented as of this encounter
--- OUTSIDE RECORDS SUMMARY | 2024-12-01 10:03 | XMS_ITS | Encounter Summary ---
Author Organization [employer] Address [address] [place] [address] Care Team Providers Care Package Delivery Room Service Runner Name Role Phone Name, Dong LONDON Primary Care Provider [phone] Reason for Visit * Reason Comments Med Refill Encounter Details Date Type Department Care Team ([facility] st Contact Info) Description 03/26/2023 Refill [facility] MEDICINE [address] [place], [place] [phone] Name, MD Dong [address] [place], [place] [phone] Erectile dysfunction, unspecified erectile dysfunction type Social [...] type documented in this encounter Care Teams Package Delivery Room Service Runner Relationship Specialty Start Date End Date Name, MD Dong [address] [place] [address] PCP - General Family Medicine 10/14/18 documented as of this encounter
--- OUTSIDE RECORDS SUMMARY | 2024-12-01 10:03 | XMS_ITS | Encounter Summary ---
Author Organization [employer] Address [address] [place] [address] Care Team Providers Care Field Artillery Basic Name Role Phone Name, Dong LONDON Primary Care Provider [phone] Reason for Visit * Reason Comments Med Refill Encounter Details Date Type Department Care Team (Late st Contact Info) Description 11/13/2023 Refill [facility] MEDICINE [address] [place], [place] [phone] Name, MD Dong [address] [place] [address] Erectile dysfunction, unspecified erectile dysfunction type Social [...] erectile dysfunction type documented in this encounter Additional Health Concerns Assessment Noted Time PHQ-9 Depression Total Score: 0 05/27/19 24 9:32 AM EDT documented as of this encounter Care Teams Field Artillery Basic Relationship Specialty Start Date End Date Name, MD Dong [address] [place] [address] PCP - General Family Medicine 10/14/18 documented as of this encounter
--- OUTSIDE RECORDS SUMMARY | 2024-12-01 10:03 | XMS_ITS | Clinical Summary ---
Author Organization [facility] Address [address] [place] [address] Care Team Providers Care Silk Top Hat Body Maker Name Role Phone Name, Dong LONDON Primary Care Provider [phone] Social History Tobacco Use Types Packs/Day Years Used Date Smoking Tobacco: Never Assessed Sex and Gender Information Value Date Recorded Sex Assigned at Not on file Gender Identity Not on file Sexual Orientation Not on file Plan of Treatment Health Maintenance Due Date Last Done Comments Hepatitis C Screening 1965 COVID-19 Vaccine (#1) 01/19/1964 Depression Screening 1975 Preventative Health Evaluation 07/18/1981 DTap / Tdap / Td (1 - Tdap) 07/18/1982 Colon Cancer Screening (Colonoscopy) 07/18/2008 Shingrix-Zoster Vaccine (1 of 2) 07/18/2013 Influenza Vaccine (#1) 2024 12/01/2019 RSV Adult > 60+ Yrs or Pregn ant (1 - 1-dose 75+ series) 07/18/2038 Hepatitis B Vaccines Aged Out No long er eligible based on patient's age to complete this topic Pneumococcal Vaccine Aged Out No long er eligible based on patient's age to complete this topic RSV Ped < 20 months Aged Out No longe r eligible based on patient's age to complete this topic Insurance Payer Benefit Plan / Group Subscriber ID Effective Dates Phone Address [facility] [id number] 2020-Presen t [address] [place] [address] HMO Care Teams Silk Top Hat Body Maker Relationship Specialty Start Date End Date Name, MD Dong [address] [place] [address] [address] [place] [address] PCP - General Internal Medicine 02/22/20
--- OUTSIDE RECORDS SUMMARY | 2024-12-01 10:03 | XMS_ITS | Encounter Summary ---
Author Organization [employer] Address [address] [place] [address] Care Team Providers Care Carriage Dogger Name Role Phone Name, Dong LONDON Primary Care Provider [phone] Reason for Visit * Reason Onset Date Comments Med Refill 08/22/2024 Encounter Details Date Type Department Care Team (Late st Contact Info) Description 08/22/2024 Refill [facility] MEDICINE [address] [place], [place] [phone] Name, MD Dong [address] [place], [place] [phone] Cervical spondylosis with myelopathy; Chronic neck pain [...] documented as of this encounter Care Teams Carriage Dogger Relationship Specialty Start Date End Date Name, MD Dong [address] [place] [address] PCP - General Family Medicine 10/14/18 documented as of this encounter
--- OUTSIDE RECORDS SUMMARY | 2024-12-01 10:03 | XMS_ITS | Encounter Summary ---
Author Organization [employer] Address [address] [place] [address] Care Team Providers Care Pattern Data Operator Name Role Phone Name, Dong LONDON Primary Care Provider [phone] Reason for Visit * Reason Comments Med Refill Encounter Details Date Type Department Care Team ([facility] st Contact Info) Description 10/28/2024 Refill [facility] MEDICINE [address] [place], [place] [phone] Name, MD Dong [address] [place] [address] Social History Tobacco Use Types Packs/Day Years [...] documented as of this encounter Care Teams Pattern Data Operator Relationship Specialty Start Date End Date Name, MD Dong [address] [place] [address] PCP - General Family Medicine 10/14/18 documented as of this encounter
--- OUTSIDE RECORDS SUMMARY | 2024-12-01 10:03 | XMS_ITS | Encounter Summary ---
Author Organization [employer] Address [address] [place] [address] Care Team Providers Care Telephone Clerk Telegraph Office Name Role Phone Name, Dong LONDON Primary Care Provider [phone] Reason for Visit * Reason Comments Med Refill Encounter Details Date Type Department Care Team ([facility] st Contact Info) Description 02/20/2023 Refill [facility] MEDICINE [address] [place], [place] [phone] Name, MD Dong [address] [place] [address] Erectile dysfunction, unspecified erectile dysfunction type Social [...] AM EDT documented as of this encounter Miscellaneous Notes * Telephone Encounter - Nolvia Bellamy RN - 02/23/2023 12:02 PM EST Images from the original note were not included. Triage call regarding Pt portal request below. Pt reports house hold has Covid. Pt tested positive with home test 02/22/23. Pt symptoms are cough, sore throat, fatigue, body aches, headache, nasal congestion. Pt is advised to seek ED evalualation for fever of 103 or higher, difficulty breathing, chest pain/pressure. Pt denies these symptoms. Fever of 102 highest temp. Pt is given home care adviceto increase liquids to 6-8 cups daily such as warm liquids like decaf tea with honey/lemon, take tylenol/ibuprofen for fever , body aches, humidifier or steamy hot shower for coughing spells. Honey 1-2 tsp for cough or OTC cough suppressent for cough either is fine. Isolation of 5 days until symptoms are better and no fever for 24 hours without taking tylenol/ibuprofen. Pt declines tele visit at this time. Pt advised to call back if needed and agrees with home care disposition and advice. Protocol Used: COVID-19 - Diagnosed or Suspected (Adult) Protocol-Based Disposition: Home Care Positive Triage Question: * COVID-19 diagnosed by positive lab test (e.g., PCR, rapid self-test kit) and mild symptoms (e.g.,cough, fever, others) and no complications or SOB * All higher-acuity triage questions were negative Care Advice Discussed: * Reassurance and Education - Positive COVID-19 Lab Test and Mild Symptoms * General Care Advice for COVID-19 Symptoms * Cough Medicines * Cough Syrup With Dextromethorphan * Humidifier * Coughing Spells * Pain and Fever Medicines * Reasons To Call Back - Fever over 103 F (39.4 C) - Fever lasts over 3 days - Fever returns after being gone for 24 hours - Chest pain or difficulty breathing occurs - You become worse * COVID-19 - How to Protect Others - When You Are Sick With COVID-19 * Clean Your Hands Often Miguel Peter [place] [facility] Clinical Support (supporting Dong Costello MD) 4 hours ago (7:49 AM) [place] Dear Dr. Costello, I hope this message finds you well. Yesterday, I tested positive for COVID-19 along with my grandchildren. I have been experiencing a fever of 102??F, a very bad sore throat, dry mouth and fatigue. Lalo writing to seek your advice on the best course of treatment. Thank you for your time and attention. Sincerely, Miguel Gabriel documented in this encounter Plan of Treatment Not on file documented as of this encounter Visit Diagnoses Diagnosis Erectile dysfunction, unspecified erectile dysfunction type documented in this encounter Care Teams Telephone Clerk Telegraph Office Relationship Specialty Start Date End Date Name, MD Dong [address] [place] [address] PCP - General Family Medicine 10/14/18 documented as of this encounter
--- OUTSIDE RECORDS SUMMARY | 2024-12-01 10:03 | XMS_ITS | Encounter Summary ---
Author Organization [employer] Address [address] [place] [address] Care Team Providers Care Blaster Helper Name Role Phone Name, Dong LONDON Primary Care Provider [phone] Reason for Visit * Reason Comments Med Refill Encounter Details Date Type Department Care Team ([facility] st Contact Info) Description 01/26/2024 Refill [facility] MEDICINE [address] [place], [place] [phone] Name, MD Dong [address] [place] [address] Erectile dysfunction, unspecified erectile dysfunction type Social [...] documented as of this encounter Care Teams Blaster Helper Relationship Specialty Start Date End Date Name, MD Dong [address] [place] [address] PCP - General Family Medicine 10/14/18 documented as of this encounter
--- OUTSIDE RECORDS SUMMARY | 2024-12-01 10:03 | XMS_ITS | Encounter Summary ---
Author Organization [employer] Address [address] [facility] [address] [place] [address] Care Team Providers Care Network Systems Analyst Name Role Phone Name, Dong LONDON Primary Care Provider [phone] Reason for Visit * Reason Comments Med Refill Encounter Details Date Type Department Care Team ([facility] st Contact Info) Description 06/26/2022 Refill [facility] MEDICINE [address] [place], [place] [phone] Name, MD Dong [address] [place] [address] Type 2 diabetes mellitus without complication, unspecified whether keno terminal operator insulin use (CMS/HCC) Social History Tobacco Use Types Packs/Day Years Used Date Smoking Tobacco: Never Smokeless Tobacco: Never Depression Answer Date Recorded Patient Health Questionnaire-2 Score 0 03/28/2022 Sex and Gender Information Value Date Recorded Sex Assigned at Male 01/13/2022 10:31 AM EDT Legal Sex Male 10:31 AM EDT Gender Identity Male 01/13/2022 10:31 AM EDT Sexual Orientation Straight 01/13/2022 10 :31 AM EDT COVID-19 Exposure Response Date Recorded In the last 10 days, have yo u been in contact with someone who was confirmed or suspected to have Coronavirus/COVID-19? No / Unsure 06/02/2022 9:07 AM EDT documented as of this encounter Plan of Treatment Not on file documented as of this encounter Visit Diagnoses Diagnosis Type 2 diabetes mellitus without complication, unspecified whether assisted insulin use (CMS/HCC) documented in this encounter Care Teams Network Systems Analyst Relationship Specialty Start Date End Date Name, MD Dong [address] [place] [address] PCP - General Family Medicine 10/14/18 documented as of this encounter
--- OUTSIDE RECORDS SUMMARY | 2024-12-01 10:03 | XMS_ITS | Encounter Summary ---
Author Organization [employer] Address [address] [place] [address] Care Team Providers Care Histology Specialist Name Role Phone Name, Dong LONDON Primary Care Provider [phone] Reason for Visit * Reason Comments Med Refill Encounter Details Date Type Department Care Team (Late st Contact Info) Description 07/12/2024 Refill [facility] MEDICINE [address] [place], [place] [phone] Name, MD Dong [address] [place] [address] Erectile dysfunction, unspecified erectile dysfunction type Social [...] documented as of this encounter Care Teams Histology Specialist Relationship Specialty Start Date End Date Name, MD Dong [address] [place] [address] PCP - General Family Medicine 10/14/18 documented as of this encounter
--- OUTSIDE RECORDS SUMMARY | 2024-12-01 10:03 | XMS_ITS | Encounter Summary ---
Author Organization [employer] Address [address] [facility] 7t [place] [address] Care Team Providers Care Tack Picker Name Role Phone NameDong MD Primary Care Provider [phone] Reason for Visit * Reason Comments Med Refill Encounter Details Date Type Department Care Team ([facility] st Contact Info) Description 07/08/2022 Refill [facility] MEDICINE [address] [place] [address] NameDong MD [address] [place] [address] Erectile dysfunction, unspecified erectile dysfunction type Social [...] suspected to have Coronavirus/COVID-19? No / Unsure 07/03/2022 9:29 AM EDT documented as of this encounter Plan of Treatment Not on file documented as of this encounter Visit Diagnoses Diagnosis Erectile dysfunction, unspecified erectile dysfunction type documented in this encounter Care Teams Tack Picker Relationship Specialty Start Date End Date NameDong MD [address] [place] [address] PCP - General Family Medicine 10/14/18 documented as of this encounter
--- OUTSIDE RECORDS SUMMARY | 2024-12-01 10:03 | XMS_ITS | Clinical Summary ---
Author Organization [employer] Address [address] [facility] 7t [place] [address] Care Team Providers Care Raimann Machine Operator Name Role Phone Name, Dong LONDON Primary Care Provider [phone] Allergies Active Allergy Reactions Criticality Noted Date Comments Lisinopril Cough 10/09/2014 Other reaction(s): cough Medications Lancets (OneTouch Delica Plus [id number]) miscIndications :Type 2 diabetes mellitus without complication, unspecified whether ferry terminal agent insulin use ([facility]) Use as directed to check blood sugar three times every day 100 each 3 04/28/19 23 Active Multiple Vitamin (Multi-Vitamin) tablet Take 1 tablet by mouth in the morning. 90 tablet 1 09/30/19 23 Active glucose blood (OneTouch Ultra) test stripIndication s:Type 2 diabetes mellitus without complication, unspecified whether fpc insulin use ([facility]) USE TO TEST BLOOD SUGAR THREE TIMES A DAY 100 strip 11 04/08/19 25 Active sertraline (Zoloft) 100 MG tablet Take 2 tablets by mouth every morning. 180 tablet 1 05/28/19 25 Active metFORMIN (Glucophage) 500 MG tabletIndicatio ns:Erectile dysfunction, unspecified erectile dysfunction type Take 1 tablet by mouth twice daily with meals. 180 tablet 1 09/15/19 25 Active atorvastatin (Lipitor) 20 MG tabletIndicatio ns:Erectile dysfunction, unspecified erectile dysfunction type Take 1 tablet by mouth daily. 90 tablet 2 09/15/19 25 Active tadalafil (Cialis) 5 MG tabletIndicatio ns:Erectile dysfunction, unspecified erectile dysfunction type Take 1 tablet by mouth daily. 90 tablet 09/16/19 25 Active terazosin (Hytrin) 10 MG capsuleIndicati ons:Benign prostatic hyperplasia without lower urinary tract symptoms TAKE 1 CAPSULE BY MOUTH AT BEDTIME 90 capsule 1 10/04/19 25 Active traZODone (Desyrel) 100 MG tablet Take 2 tablets by mouth at bedtime. 180 tablet 10/07/19 25 Active mometasone (Elocon) 0.1 % ointment Apply topically to affected area once daily. 45 g 10/19/19 25 Active Jardiance 25 MG Take 1 tablet by mouth every morning. 90 tablet 10/20/19 25 Active cyclobenzaprine (Flexeril) 10 MG tabletIndicatio ns:Erectile dysfunction, unspecified erectile dysfunction type Take 1 tablet by mouth every 6 hours during the day. 90 tablet 10/25/19 25 Active amLODIPine (Norvasc) 5 MG tablet TAKE 1 TABLET BY MOUTH EVERY DAY 90 tablet 1 11/19/19 25 Active metoprolol tartrate (Lopressor) 100 MG tablet TAKE 1 TABLET BY MOUTH TWICE DAILY 180 tablet 1 11/19/19 25 Active gabapentin (Neurontin) 800 MG tabletIndicatio ns:Cervical spondylosis with myelopathy Take 1 tablet (800 mg) by mouth 3 times daily. 90 tablet 11 11/30/19 25 026 Active oxyCODONE-aceta minophen (Percocet) 5-325 MG tabletIndicatio ns:Chronic neck pain Take 1 tablet by mouth every 8 (eight) hours if needed for severe pain or moderate pain for up to 28 days. 84 tablet 11/30/19 25 025 Active metoprolol tartrate (Lopressor) 100 MG tablet Take 1 tablet by mouth twice daily. 180 tablet 2 03/21/19 25 025 Discontinued(Re order (will not trigger notification to Pharmacy)) amLODIPine (Norvasc) 5 MG tablet Take 1 tablet by mouth daily. 90 tablet 1 05/31/19 25 025 Discontinued pregabalin (Lyrica) 100 MG capsuleIndicati ons:Cervical spondylosis with myelopathy,Credit Collection Associate ankit neck pain Take 1 capsule by mouth twice daily. 60 capsule 10/20/19 25 025 Discontinued oxyCODONE-aceta minophen (Percocet) 5-325 MG tabletIndicatio ns:Cervical spondylosis with myelopathy,Credit Collection Associate ankit neck pain TAKE ONE TABLET EVERY 8 HOURS NEEDED FOR SEVERE PAIN 84 tablet 10/27/19 25 025 Discontinued pregabalin (Lyrica) 100 MG capsuleIndicati ons:Cervical spondylosis with myelopathy,Credit Collection Associate ankit neck pain Take 1 capsule by mouth twice daily. 60 capsule 11/17/19 25 025 Discontinued(Si de effects) oxyCODONE-aceta minophen (Percocet) 5-325 MG tabletIndicatio ns:Cervical spondylosis with myelopathy,Credit Collection Associate ankit neck pain TAKE ONE TABLET EVERY 8 HOURS NEEDED FOR SEVERE PAIN 21 tablet 11/24/19 25 025 Discontinued(Re order (will not trigger notification to Pharmacy)) gabapentin (Neurontin) 800 MG tabletIndicatio ns:Cervical spondylosis with myelopathy Take 1 tablet (800 mg) by mouth 3 times daily. 90 tablet 11 11/30/19 25 025 Discontinued(Re order (will not trigger notification to Pharmacy)) oxyCODONE-aceta minophen (Percocet) 5-325 MG tabletIndicatio ns:Cervical spondylosis with myelopathy,Credit Collection Associate ankit neck pain Take 1 tablet by mouth every 8 (eight) hours if needed for severe pain for up to 28 days. 84 tablet 11/30/19 25 025 Discontinued(Th erapy completed) Active Problems Problem Noted Date Diagnosed Date Nocturnal hypoxemia 09/07/2023 Calcium deposits of brain 11/14/2022 DM (diabetes mellitus) 09/05/2022 Osteoarthritis 09/05/2022 Overview (09/05/2022): cervical spine Syncope 09/05/2022 Difficulty walking 02/20/2022 Hx of fusion of cervical spine 02/20/2022 Memory deficit 07/18/2021 Hypoxemia 02/01/2018 Snoring 02/01/2018 Tired 02/01/2018 Right arm weakness 01/05/2017 Radicular pain 01/05/2017 BPH (benign prostatic hyperplasia) 07/07/2016 Cervical spondylosis with myelopathy 06/17/2016 Recurrent major depression in partial remission 06/17/2016 Type 2 diabetes mellitus without complication Prediabetes 01/06/2016 Low testosterone 01/02/2016 S/P laparoscopic cholecystectomy 05/09/2015 Chronic pain 10/19/2013 Depression 10/19/2013 Psoriasis 08/19/2013 Vitamin D deficiency 03/25/2013 Syrinx of spinal cord 12/28/2012 Overview (09/05/2022): At the level of C5-C7. Initially described an [place] [facility] [place] Patient has chronic neck pain with radiation to the right arm, associated numbness and mild weakness. She was evaluated by a neurosurgeon at [facility]. He was explained that eventually might need surgical intervention. 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 Patient is currently following with neurosurgeon in [facility]. He has chronic pain on the cervical spine with radiation to both arms. MRI of the cervical spine was last done at [facility] [place] 2009. Radiculopathy of arm 04/23/2010 Overview (09/05/2022): History of syrinx of the cervical spine High cholesterol 06/11/2007 Migraine with aura 01/07/2007 Overview (09/05/2022): IMO update HTN (hypertension) 09/18/2005 Encounters Date Type Department Care Team Description 11/29/2024 9:30 AM EDT Office Visit [facility] [address] [place] [id number] Name, MD Dong Type 2 diabetes mellitus without complication, without long-term current use of insulin ([facility]) (Primary Dx); Screening for prostate cancer; Depression with anxiety; Cervical spondylosis with myelopathy; Chronic neck pain 11/29/2024 Travel 11/25/2024 Telephone [facility] [address] [place] [address] Dong Costello MD Chart Prep 11/23/2024 Refill [facility] [address] [place] [address] Dong Costello MD Cervical spondylosis with myelopathy; Chronic neck pain 11/22/2024 Travel 11/21/2024 Patient Outreach [facility] [address] [place] [address] Dong Costello MD Pre-visit Planning (Pre visit planning LVM ) 11/21/2024 Refill [facility] [address] [place] [address] Dong Costello MD Cervical spondylosis with myelopathy; Chronic neck pain 11/18/2024 Refill [facility] [address] [place] [address] Dong Costello MD 11/18/2024 Refill [facility] [address] [place] [address] Khushboo Munson DO 11/15/2024 Refill [facility] [address] [place] [address] Dong Costello MD Cervical spondylosis with myelopathy; Chronic neck pain 11/15/2024 Refill [facility] [address] [place] [address] Dong Costello MD Cervical spondylosis with myelopathy; Chronic neck pain 10/28/2024 Refill [facility] [address] [place] [address] Dong Costello MD 10/22/2024 Refill [facility] [address] [place] [address] Dong Costello MD Erectile dysfunction, unspecified erectile dysfunction type 10/21/2024 Refill [facility] [address] [place] [address] Dong Costello MD Cervical spondylosis with myelopathy; Chronic neck pain 10/18/2024 Refill [facility] [address] [place] [address] Dong Costello MD Cervical spondylosis with myelopathy; Chronic neck pain 10/18/2024 Refill [facility] [address] [place] [address] NameDong MD Cervical spondylosis with myelopathy; Chronic neck pain 10/17/2024 Refill [facility] [address] [place] [address] Name, MD Dong 10/05/2024 Refill [facility] [address] [place] [address] Name, MD Dong 10/01/2024 Refill [facility] [address] [place] [address] NameDong MD Benign prostatic hyperplasia without lower urinary tract symptoms 09/27/2024 Refill [facility] [address] [place] [address] Bita Esquivel, RN Cervical spondylosis with myelopathy; Chronic neck pain 09/14/2024 Refill [facility] [address] [place] [address] Name, MD Dong Erectile dysfunction, unspecified erectile dysfunction type 09/13/2024 Refill [facility] [address] [place], [place] [phone] Name, MD Dong Cervical spondylosis with myelopathy; Chronic neck pain; Erectile dysfunction, unspecified erectile dysfunction type from Last 3 Months Immunizations Immunization Administration Dates Next Due Influenza Injectable Quadriv alant Preservative Free IIV4 MDCK 12/04/2021,12/01/2019 Influenza injectable quadriv alent preservative free 12/26/2022,12/08/2020,12/01/2016 Influenza, IIV3, injectable 01/02/2016,1 03/29/2014,12/28/2012,03/10,02/22/2008,01/07/2007 Novel sdiwafrck-A5L1-11, preservative-free 05/11/2009 Pfizer Covid-19 Vaccine 12+ 08/01/2021,0 12/08/2020,06/17/2020,05/27 Pfizer Covid-19 Vaccine 12+ Bivalent 12/04/2021 Pfizer Covid-19 Vaccine 12+ josh-sucrose ([employer]man Cap) 08/01/2021 Pneumococcal Polysaccharide PPSV23 04/07/2015 Td (adult), 5 Lf tetanus tox oid, preservative free, adsorbed 01/02/2016 Family History Medical History Relation Name Comments Cataracts Mother Relation Name Status Comments Mother Social History Tobacco Use Types Packs/Day Years [...] Orientation Straight 01/13/2022 10 :31 AM EDT Last Filed Vital Signs Vital Sign Reading [...] Mass Index 29.26 11/29/2024 9:44 AM EDT Plan of Treatment Health Maintenance Due Date Last Done Comments CT Colonography 1963 Dental X-Ray: Bitewings 1963 FIT DNA/Cologuard 1963 FIT 1963 FOBT 1965 HIV Screening 1965 Sigmoidoscopy 1965 Hepatitis C Screening 07/18/1981 DTaP/Tdap/Td Vaccines (1 - Tdap) 01/03/2016 01/02/2016 Dental Oral Exam 07/08/2019 01/05/2019 Dental Prophylaxis 09/22/2019 03/23/2019 Zoster Vaccines (2 of 2) 01/06/2024 11/11/2023 Diabetes: Foot Exam 01/27/2024 01/26/2023, 01/26/2023, 01/26/2023, Additional history exists Diabetes: Urine Protein Screening 09/23/2024 09/24/2023, 01/26/2023, 12/06/2021 Lipid Panel 09/23/2024 09/24/2023, 11/15, 10/21/2019 Eye Exam 03/26/2025 03/26/2023, 03/16, 03/26/2023, Additional history exists Depression Monitoring 05/29/2025 11/29/2024, 025 Diabetes: Hemoglobin A1C 05/29/2025 025, 09/24/2023, 05/27/2023, Additional history exists Alcohol/Substance Use Screening 11/29/2025 11/29/2024 Disability Screening 11/29/2025 11/29/2024 SDOH Screening 11/29/2025 11/29/2024 Tobacco Screening 11/29/2025 11/29/2024 Dental X-Ray: Full Mouth 05/07/2026 024, 08/12/2022, 01/05/2019 Colonoscopy 10/29/2028 10/30/2023 Colorectal Cancer Screening 10/29/2028 RSV Patients and Patients Aged 60 years or older Completed 12/23/2023 Pneumococcal Vaccine: 50+ Years Completed 02/05/2024, 04/07/2015 COVID-19 Vaccine Completed 11/19/2024, , 12/26/2022, Additional history exists Influenza Vaccine Completed 11/19/2024, , 12/26/2022, Additional history exists HIB Vaccines Aged Out No longer eligi ble based on patient's age to complete this topic HPV Vaccines Aged Out No longer eligi ble based on patient's age to complete this topic Hepatitis A Vaccines Aged Out No long er eligible based on patient's age to complete this topic Hepatitis B Vaccines Aged Out No long er eligible based on patient's age to complete this topic IPV Vaccines Aged Out No longer eligi ble based on patient's age to complete this topic Meningococcal B Vaccine Aged Out No l onger eligible based on patient's age to complete this topic Meningococcal Vaccine Aged Out No serg bull eligible based on patient's age to complete this topic RSV under 20 months Aged Out No longe r eligible based on patient's age to complete this topic Rotavirus Vaccines Aged Out No longer eligible based on patient's age to complete this topic Procedures Procedure Name Priority Date/Time Associated Diagnosis Comments POCT GLYCATED HEMOGLOBIN, TOTAL Routine 11/29/2024 9:45 AM EDT Type 2 diabetes mellitus without complication, without long-term current use of insulin ([facility]) POCT GLUCOSE Routine 11/29/2024 9:45 AM EDT Type 2 diabetes mellitus without complication, without long-term current use of insulin ([facility]) HM COLONOSCOPY Routine 10/30/2023 11:10 AM EDT ALBUMIN, RANDOM URINE W/CREATININE Routine 09/24/2023 9:10 AM EDT Type 2 diabetes mellitus without complication, without long-term current use of insulin ([facility]) LIPID PANEL, STANDARD Routine 09/24/2023 9:02 AM EDT Type 2 diabetes mellitus without complication, without long-term current use of insulin ([facility]) PANORAMIC RADIOGRAPHIC IMAGE Routine 05/06/2023 8:00 AM EST PROPHYLAXIS - ADULT Routine 03/23/2019 1 2:00 AM EST COMPREHENSIVE ORAL EVALUATION - NEW OR ESTABLISHED PATIENT Routine 01/05/2019 12:00 AM EDT from Last 3 Months or Most Recently Relevant to Health Maintenance Results * (ABNORMAL) POCT Hgb A1c (11/29/2024 9:45 AM EDT) Hemoglobin A1C 6.0(A) 4.0 - 5.7 % QC Media Lot # [id number] Lot# Expiration Date [id number] Blood 11/29/2024 9:45 AM EDT us Dong Costello MD POINT OF CARE TEST ENTER/EDIT OR DERABLES Final Result * POCT Glucose (11/29/2024 9:45 AM EDT) Pathologist [facility] Glucose Blood, POC 127 60 - 200 mg/dL QC Media Lot # [id number] Lot# Expiration Date [id number] Blood Capillary blood specimen / Unknown 11/29/2024 9:45 AM EDT us Dong Costello MD POINT OF CARE TEST ENTER/EDIT OR DERABLES Final Result * (ABNORMAL) Hm Colonoscopy (10/30/2023 11:10 AM EDT) Colonoscopy Abnormal(A ) Normal us Dong Costello MD HEALTH MAINTENANCE Final Result * Albumin, Random Urine W/Creatinine (09/24/2023 9:10 AM EDT) Creatinine, Urine 184.34 mg/dL [facility] Microalbumin Urine 15.0 mg/L H [facility] Microalbum Creatinine Ratio Ur 8.1 <30 ug/mg cr [facility] Comment:Albumin/Creatinine R atio Reference Ranges: Normal: < 30 ug/mg creatinine Microalbuminuria: 30 - 300 ug/mg creatinineClinical Albuminuria: > 300 ug/mg creatinine Urine (Urine, Random) 09/24/2023 9:10 AM EDT 09/24/2023 2:33 PM EDT us Dong Costello MD LAB URINE ORDERABLES Final Resul t [facility] [address] [place] [address] [phone] * (ABNORMAL) Lipid Panel, Standard (09/24/2023 9:02 AM EDT) Triglycerides 218(H) <150 mg/dL [facility] Comment:Desirable Triglyceri de: less than 150 mg/dLBorderline High Triglyceride 150-199 mg/dLHigh Triglyceride: 200-499 mg/dLVery High Triglyceride: greater than or equal to 5OO mg/dL Cholesterol 159 <200 mg/dL [facility] Comment:Desirable Cholestero l: less than 200 mg/dLBorderline High Cholesterol: 200-239 mg/dLHigh Cholesterol: greater than 239 mg/dL LDL Cholesterol Calculated 86 <100 mg/dL [facility] Comment:Desirable LDL: less than 100 mg/dLNear Optimal/Above Optimal LDL: 110- 129 mg/dLBorderline High LDL: 130-159 mg/dLHigh LDL: 160-189 mg/dLVery High LDL: greater than or equal to 190 mg/dL HDL Cholesterol 30(L) >40 mg/dL [facility] Comment:Desirable HDL: great er than 40 mg/dL Note: This HDL assay may give artificially low results in patients with liver disease. Blood Venous blood specimen / Unknown 09/24/2023 9:02 AM EDT 09/24/2023 2:40 PM EDT us Dong Costello MD LAB BLOOD ORDERABLES Final Resul t [facility] [address] [place] [address] [phone] from Last 3 Months or Most Recently Relevant to Health Maintenance Insurance [facility] PPO [employer] [place] [address] Care Teams Raimann Machine Operator Relationship Specialty Start Date End Date Name, MD Dong [address] [place] [address] PCP - General Family Medicine 10/14/18
--- OUTSIDE RECORDS SUMMARY | 2024-12-01 10:03 | XMS_ITS | Encounter Summary ---
Author Organization [employer] Address [address] [facility] 7t [place] [address] Care Team Providers Care Commercial Loan Collection Officer Name Role Phone NameDong MD Primary Care Provider [phone] Reason for Visit * Reason Comments Med Refill Encounter Details Date Type Department Care Team ([facility] st Contact Info) Description 09/29/2022 Refill [facility] [address] [place], [place] [phone] Name, MD Dong [address] [place] [address] Social History Tobacco Use Types Packs/Day Years [...] suspected to have Coronavirus/COVID-19? No / Unsure 09/23/2022 2:17 PM EDT documented as of this encounter Plan of Treatment Not on file documented as of this encounter Visit Diagnoses Not on filedocumented in this encounter Care Teams Commercial Loan Collection Officer Relationship Specialty Start Date End Date Name, MD Dong [address] [place] [address] PCP - General Family Medicine 10/14/18 documented as of this encounter"
--- OUTSIDE RECORDS SUMMARY | 2024-12-01 10:03 | XMS_ITS | Encounter Summary ---
Author Organization [employer] Address [address] [facility] [address] [place] [address] Care Team Providers Care Gearcase Assembler Name Role Phone Name, Dong LONDON Primary Care Provider [phone] Reason for Visit * Reason Comments Med Refill Encounter Details Date Type Department Care Team (Late st Contact Info) Description 10/16/2023 Refill [facility] [address] [place], [place] [phone] Name, MD Dong [address] [place] [address] Erectile dysfunction, unspecified erectile dysfunction type Social [...] documented as of this encounter Care Teams Gearcase Assembler Relationship Specialty Start Date End Date Name, MD Dong [address] [place] [address] PCP - General Family Medicine 10/14/18 documented as of this encounter
--- OUTSIDE RECORDS SUMMARY | 2024-12-01 10:03 | XMS_ITS | Encounter Summary ---
Author Organization [employer] Address [address] [place] [address] Care Team Providers Care Materials Management Manager Name Role Phone Name, Dong LONDON Primary Care Provider [phone] Reason for Visit * Reason Comments Med Refill Encounter Details Date Type Department Care Team ([facility] st Contact Info) Description 03/02/2024 Refill [facility] [address] [place], [place] [phone] Name, MD Dong [address] [place] [address] Erectile dysfunction, unspecified erectile dysfunction type; Benign prostatic hyperplasia without lower urinary tract symptoms Social History Tobacco Use Types Packs/Day Years [...] Diagnosis Erectile dysfunction, unspecified erectile dysfunction type Benign prostatic hyperplasia without lower urinary tract symptoms documented in this encounter Additional Health Concerns Assessment Noted Time PHQ-9 Depression Total Score: 0 05/27/19 24 9:32 AM EDT documented as of this encounter Care Teams Materials Management Manager Relationship Specialty Start Date End Date Name, MD Dong [address] [place] [address] PCP - General Family Medicine 10/14/18 documented as of this encounter
--- OUTSIDE RECORDS SUMMARY | 2024-12-01 10:03 | XMS_ITS | Encounter Summary ---
Author Organization [employer] Address [address] [facility] 7t [place] [address] Care Team Providers Care Project Development Coordinator Name Role Phone Name, Dong LONDON Primary Care Provider [phone] Reason for Visit * Reason Comments Med Refill Encounter Details Date Type Department Care Team ([facility] st Contact Info) Description 09/01/2022 Refill [facility] [address] [place], [place] [phone] Name, MD Dong [address] [place] [address] Type 2 diabetes mellitus without complication, unspecified whether mathematics technician insulin use (CMS/HCC) Social History Tobacco Use [...] suspected to have Coronavirus/COVID-19? No / Unsure 09/02/2022 8:58 AM EDT documented as of this encounter Plan of Treatment Not on file documented as of this encounter Visit Diagnoses Diagnosis Type 2 diabetes mellitus without complication, unspecified whether mcc insulin use (CMS/HCC) documented in this encounter Care Teams Project Development Coordinator Relationship Specialty Start Date End Date Name, MD Dong [address] [place] [address] PCP - General Family Medicine 10/14/18 documented as of this encounter
--- OUTSIDE RECORDS SUMMARY | 2024-12-01 10:03 | XMS_ITS | Encounter Summary ---
Author Organization [employer] Address [address] [place] [address] Care Team Providers Care Bench Assembly Inspector Name Role Phone Name, Dong LONDON Primary Care Provider [phone] Reason for Visit * Reason Comments Med Refill Encounter Details Date Type Department Care Team (Late st Contact Info) Description 06/24/2024 Refill [facility] [address] [place], [place] [phone] Name, MD Dong [address] [place] [address] Erectile dysfunction, unspecified erectile dysfunction type Social [...] documented as of this encounter Care Teams Bench Assembly Inspector Relationship Specialty Start Date End Date Name, MD Dong [address] [place] [address] PCP - General Family Medicine 10/14/18 documented as of this encounter
--- OUTSIDE RECORDS SUMMARY | 2024-12-01 10:03 | XMS_ITS | Encounter Summary ---
Author Organization [employer] Address [address] [place] [address] Care Team Providers Care Proposal Lead Writer Name Role Phone Name, Dong LONDON Primary Care Provider [phone] Reason for Visit * Reason Onset Date Comments Med Refill 10/18/2024 Encounter Details Date Type Department Care Team (Late st Contact Info) Description 10/18/2024 Refill [facility] [address] [place], [place] [phone] Name, MD Dong [address] [place], [place] [phone] Cervical spondylosis with myelopathy; Chronic neck pain [...] documented as of this encounter Care Teams Proposal Lead Writer Relationship Specialty Start Date End Date Name, MD Dong [address] [place] [id number] PCP - General Family Medicine 10/14/18 documented as of this encounter
--- OUTSIDE RECORDS SUMMARY | 2024-12-01 10:03 | XMS_ITS | Encounter Summary ---
Author Organization [employer] Address [address] 7t [place] [address] Care Team Providers Care Shovel Operator Name Role Phone Name, Dong LONDON Primary Care Provider [phone] Reason for Visit * Reason Onset Date Comments Med Refill 11/15/2024 Encounter Details Date Type Department Care Team (Late st Contact Info) Description 11/15/2024 Refill [facility] MEDICINE 230 [place], [place] [phone] Name, MD Dong 230 [place], [place] [phone] Cervical spondylosis with myelopathy; Chronic neck pain [...] documented as of this encounter Care Teams Shovel Operator Relationship Specialty Start Date End Date Name, MD Dong [address] [place] [address] PCP - General Family Medicine 10/14/18 documented as of this encounter
--- OUTSIDE RECORDS SUMMARY | 2024-12-01 10:03 | XMS_ITS | Encounter Summary ---
Author Organization [employer] Address [address] 7[address] [place] [address] Care Team Providers Care Explosive Specialist Name Role Phone Name, Dong LONDON Primary Care Provider [phone] Reason for Visit * Reason Comments Med Refill Encounter Details Date Type Department Care Team ([facility] st Contact Info) Description 07/08/2023 Refill [facility] MEDICINE 230 [place], [place] [phone] Name, MD Dong 230 [place] [address] Social History Tobacco Use Types Packs/Day Years Used Date Smoking Tobacco: Former Cigarettes 0 03/16/1993 - 03/16/2003 Smokeless Tobacco: Never Alcohol Use Standard Drinks/Week Comments Never 0 (1 standard drink = 0.6 oz pur e alcohol) Depression Answer Date Recorded Patient Health Questionnaire-9 [...] documented as of this encounter Care Teams Explosive Specialist Relationship Specialty Start Date End Date Name, MD Dong 230 [place] [address] PCP - General Family Medicine 10/14/18 documented as of this encounter
--- OUTSIDE RECORDS SUMMARY | 2024-12-01 10:03 | XMS_ITS | Encounter Summary ---
Author Organization [employer] Address [address] 7t [place] [address] Care Team Providers Care Metal Welder Name Role Phone Name, Dong LONDON Primary Care Provider Reason for Visit * Reason Comments Med Refill Encounter Details Date Type Department Care Team (Late st Contact Info) Description 06/24/2024 Refill [facility] MEDICINE 230 [place], [place] [phone] Khushboo Munson DO 230 [place] [address] Benign prostatic hyperplasia without lower urinary tract [...] as of this encounter Visit Diagnoses Diagnosis Benign prostatic hyperplasia without lower urinary tract symptoms documented in this encounter Additional Health Concerns Assessment Noted Time PHQ-9 Depression Total Score: 0 05/27/19 24 9:32 AM EDT documented as of this encounter Care Teams Metal Welder Relationship Specialty Start Date End Date Name, MD Dong [address] [place] [address] PCP - General Family Medicine 10/14/18 documented as of this encounter
--- OUTSIDE RECORDS SUMMARY | 2024-12-01 10:03 | XMS_ITS | Encounter Summary ---
Author Organization [email or web address] Address [address] 7[address] [place] [address] Care Team Providers Care Sheet Fed Printer Name Role Phone Name, Dong LONDON Primary Care Provider Encounter Details Date Type Department Care Team (Latest Contact Info) Description 01/05/2019 Abstract [facility] Dental, Provider, DDS Social History Tobacco Use Types Packs/Day Years [...] on filedocumented in this encounter Care Teams Sheet Fed Printer Relationship Specialty Start Date End Date Name, MD Dong [address] [place] [address] PCP - General Family Medicine 10/14/18 documented as of this encounter
--- OUTSIDE RECORDS SUMMARY | 2024-12-01 10:03 | XMS_ITS | Encounter Summary ---
Author Organization [employer] Address [address] 7t [place] [address] Care Team Providers Care It Operations Specialist Name Role Phone Name, Dong LONDON Primary Care Provider [phone] Reason for Visit * Reason Onset Date Comments Med Refill 04/28/2023 Encounter Details Date Type Department Care Team (Late st Contact Info) Description 04/28/2023 Refill [facility] MEDICINE 230 [place] [address] Jennifer Peters MD 230 [place], [place] [phone] Benign prostatic hyperplasia without lower urinary tract symptoms Social History Tobacco Use Types Packs/Day Years Used Date Smoking Tobacco: Former Cigarettes 0 03/16/1993 - 03/16/2003 Smokeless Tobacco: Never Alcohol Use Standard Drinks/Week Comments Never 0 (1 standard drink = 0.6 oz pur e alcohol) Housing Stability Answer Date Recorded What is your housing situation today? I have wilbermike zhou 12/29/[address] [...] urinary tract symptoms documented in this encounter Care Teams It Operations Specialist Relationship Specialty Start Date End Date Name, MD Dong 230 [place] [address] PCP - General Family Medicine 10/14/18 documented as of this encounter
--- OUTSIDE RECORDS SUMMARY | 2024-12-01 10:03 | XMS_ITS | Encounter Summary ---
Author Organization [employer] Address [address] 7[address] [place] [address] Care Team Providers Care Review Specialist Name Role Phone Name, Dong LONDON Primary Care Provider [phone] Reason for Visit * Reason Comments Med Refill Encounter Details Date Type Department Care Team (Late st Contact Info) Description 08/22/2024 Refill [facility] MEDICINE 230 [place], [place] [phone] Name, MD Dong 230 [place] [address] Erectile dysfunction, unspecified erectile dysfunction type Social [...] documented as of this encounter Care Teams Review Specialist Relationship Specialty Start Date End Date Name, MD Dong 230 [place] [address] PCP - General Family Medicine 10/14/18 documented as of this encounter
--- OUTSIDE RECORDS SUMMARY | 2024-12-01 10:03 | XMS_ITS | Encounter Summary ---
Author Organization [employer] Address [address] [place] [address] Care Team Providers Care Cognos Architect Name Role Phone Name, Dong LONDON Primary Care Provider [phone] Encounter Details Date Type Department Care Team (Latest Contact Info) Description 11/29/2024 Travel Social History Tobacco Use Types Packs/Day Years [...] housing situation today? I have wilbermike zhou 11/29/[address] you [...] AM EDT documented as of this encounter Functional Status * Over the [...] half the days 11/29/2024 9:49 AM EDT I Braulio drummond [place] * Trouble falling or staying asleep, or sleeping too much Answer Date of Assessment Author Nearly every day 11/29/2024 9:49 AM EDT Braulio Waddell [place] * Feeling tired or having little energy Answer Date of Assessment Author More than half the days 11/29/2024 9:49 AM EDT I Braulio drummond [place] * Poor appetite or overeating Answer Date of Assessment Author More than half the days 11/29/2024 9:49 AM EDT I Braulio drummond [place] * Feeling bad about yourself - [...] MA Trouble relaxing 3 11/29/2024 9:49 AM Braulio Ghotra [place] Being so restless that it is hard to sit still 3 11/29/2024 9:49 AM Wanye Presley [place] Becoming easily annoyed or irritable 0 11/29/2024 9:49 AM Wayne Presley [place] Feeling afraid as if somethi ng awful might happen 3 11/29/2024 9:49 AM EDT Wayne Waddell MA DEVON-7 Total Score 18 11/29/2024 9:49 AM EDT Braulio Waddell [place] documented as of this encounter Plan of Treatment Not on file documented as of this encounter Visit Diagnoses Not on filedocumented in this encounter Additional Health Concerns Assessment Noted Time PHQ-9 Depression Total Score: 22 025 9:49 AM EDT documented as of this encounter Care Teams Cognos Architect Relationship Specialty Start Date End Date Name, MD Dong 230 [place] [address] PCP - General Family Medicine 10/14/18 documented as of this encounter
--- OUTSIDE RECORDS SUMMARY | 2024-12-01 10:03 | XMS_ITS | Encounter Summary ---
Author Organization [employer] Address [address] 7[address] [place] [address] Care Team Providers Care Surface Boss Name Role Phone Name, Dong LONDON Primary Care Provider [phone] Reason for Visit * Reason Comments Med Refill Encounter Details Date Type Department Care Team ([facility] st Contact Info) Description 01/12/2024 Refill [facility] MEDICINE 230 [place], [place] [phone] Name, MD Dong 230 [place] [address] Erectile dysfunction, unspecified erectile dysfunction type Social [...] documented as of this encounter Care Teams Surface Boss Relationship Specialty Start Date End Date Name, MD Dong 230 [place] [address] PCP - General Family Medicine 10/14/18 documented as of this encounter
--- OUTSIDE RECORDS SUMMARY | 2024-12-01 10:03 | XMS_ITS | Encounter Summary ---
Author Organization [employer] Address [address] [place] [address] Care Team Providers Care Shuttle Threader Name Role Phone Name, Dong LONDON Primary Care Provider [phone] Reason for Visit * Reason Comments Med Refill Encounter Details Date Type Department Care Team ([facility] st Contact Info) Description 05/19/2023 Refill [facility] MEDICINE 230 [place], [place] [phone] Name, MD Dong 230 [place] [address] Social History Tobacco Use Types Packs/Day Years [...] on filedocumented in this encounter Care Teams Shuttle Threader Relationship Specialty Start Date End Date Name, MD Dong 230 [place] [address] PCP - General Family Medicine 10/14/18 documented as of this encounter
--- OUTSIDE RECORDS SUMMARY | 2024-12-01 10:03 | XMS_ITS | Encounter Summary ---
Author Organization [employer] Address [address] [place] [address] Care Team Providers Care Clay Processing Labourer Name Role Phone Name, Dong LONDON Primary Care Provider [phone] Reason for Visit * Reason Onset Date Comments Med Refill 11/30/2023 Encounter Details Date Type Department Care Team (Late st Contact Info) Description 11/30/2023 Refill [facility] MEDICINE 230 [place], [place] [phone] Name, MD Dong 230 [place] [address] Erectile dysfunction, unspecified erectile dysfunction type Social [...] documented as of this encounter Care Teams Clay Processing Labourer Relationship Specialty Start Date End Date Name, MD Dong 230 [place] [address] PCP - General Family Medicine 10/14/18 documented as of this encounter
[2024-12-01 14:36] LABS: MANUAL DIFF FLAG NO
[2024-12-01 14:40] LABS: Hematocrit 45.5 % (42.0-52.0); Hemoglobin 14.6 g/dl (14.0-18.0); Imm Gran Abs Auto 0.01 X10*3/uL (0.00-0.03); Imm Gran Pct Auto 0.2 % (0.0-0.4); Lymphocytes Absolute Auto 1.3 X10*3/uL (1.2-4.9); Mean Corpuscular HGB Conc 32.1 g/dl (31.0-36.0); Mean Corpuscular Hemoglobin 26.1 pg (27.0-33.0); Mean Corpuscular Volume 81.3 fL (80.0-98.0); NRBC Abs Auto 0.000 X10*3/uL (0.0-0.012); NRBC Pct Auto 0.0 /100WBC (0.0-0.2); Platelet Count 114 X10*3/uL (160-400); Red Blood Count 5.60 X10*6/uL (4.60-5.80); White Blood Count 5.6 X10*3/uL (4.8-10.8)
[2024-12-01 15:03] LABS: Alanine Aminotransferase 23 U/L (0-40); Albumin Level 4.4 g/dL (3.5-5.0); Alkaline Phosphatase 71 U/L (39-117); Anion Gap 12 (12-20); Aspartate Amino Transferase 34 U/L (5-37); Blood Urea Nitrogen 14 mg/dL (9-16); Calcium 9.8 mg/dL (8.4-10.2); Carbon Dioxide 29 mmol/L (22-29); Chloride 108 mmol/L (96-108); Cholesterol 159 mg/dL (<200); Estimated Glomerular Filt Rate > 60; HDL Cholesterol 31 mg/dL (>40); Potassium 3.8 mmol/L (3.3-5.1); Sodium 145 mmol/L (135-145); Total Protein 7.0 g/dL (6.5-8.0); Triglycerides 157 mg/dL (<150)
[2024-12-01 15:22] LABS: Prostate Specific Antigen 1.38 ng/mL (<0.05-4.0)
[2024-12-01 15:27] LABS: Microalbum/Creatinine Ratio Ur 5.1 ug/mg cr (<30)
== END 2024-12-01 08:46 | disposition home or self-care (01) ==
LOC: HO.CHCLDS 08:45
PROVIDERS: Visit Provider Internal Medicine Geriatric Medicine
DX: Z12.5 Encounter for screening for malignant neoplasm of prostate (principal); E11.9 Type 2 diabetes mellitus without complications; M47.12 Other spondylosis with myelopathy, cervical region; M54.2 Cervicalgia; G89.29 Other chronic pain; F41.8 Other specified anxiety disorders
CPT/HCPCS: 36415; 80053; 80061; 82043; 82570; 84153; 85025

== ENCOUNTER 2025-01-02 11:28 | Outpatient (AMB) | payer BC, SELFPAY ==
--- NOTE | 2025-01-02 11:44 | MHC.OFFVIS ---
Vital Signs 01/02/25 11:49 Height 6 ft 4 in Weight 236 lb BMI 28.7 BP 100/64 Blood Pressure Location Lt brachial Position Sitting Respiration 16 Pulse 93 Pulse Source Pulse Oximeter Pulse Oximetry (%) 93 Oxygen Delivery Method Room Air Intake Visit Reasons: Chronic neck pain Dry Chain Puller Required: No Allergies losartan Adverse Reaction (Intermediate, Verified 01/02/25 11:51) Cough Medication List - Last Reconciled 01/02/25 by Janette Brown, PJ amlodipine 5 mg PO DAILY rnmdfzt-cwljbhzlpgykv-ofnclshn 250-250-65 mg (Excedrin Migraine) 1 tab PO Q4-6H PRN atorvastatin 20 mg PO DAILY blood sugar diagnostic (Aductionsuch Ultra Test strips) As directed cyclobenzaprine 10 mg PO TID empagliflozin (Jardiance) 10 mg PO DAILY gabapentin 800 mg PO TID metformin 500 mg PO BID metoprolol tartrate 100 mg PO BID mometasone 0.1% topical DAILY oxycodone-acetaminophen 5-325 mg 1 tab PO Q8H PRN sertraline 300 mg PO DAILY tamsulosin 0.4 mg PO BEDTIME trazodone 200 mg PO BEDTIME PRN HPI HPI Chronic neck pain: Details: History of Present Illness The patient is a 59-year-old male presenting with chronic neck pain radiating to the right arm. The pain is associated with cervical spondylosis, syrinx and myelopathy, and he has undergone anterior cervical discectomy and fusion (ACDF) at C4-C6 in 2017 and posterior laminectomy C6-C7 in 2020. He has experienced these issues for the past 15 years, with the pain rated as 10/10 in severity. The patient also reports chronic low back pain, rated as 5/5/10 in severity, which has been persistent alongside his neck pain. He has been unemployed and on disability for the past six years due to his pain, which also disrupts his sleep, particularly worsening in the morning. Various interventions have been attempted, including traction, oral medications, topical medications, and heat and cold applications, which have provided some relief. His current medication regimen includes Percocet 5-325 mg, gabapentin 800 mg, and Flexeril 10 mg, all taken three times daily. He has also previously received epidural steroid injections. The patient has a history of positive antinuclear antibody (JENNIFER) and rheumatoid factor, which are being monitored for potential autoimmune conditions. Pain Description - Onset: Pain has been present for 15 years. - Quality: Described as severe, rated 10/10 in the neck and right shoulder, and 5/5/10 in the left lower back. - Location: Neck pain radiating to the right arm; low back pain. - Exacerbating factors: Pain worsens in the morning upon waking. - Relieving factors: Traction, oral medications, topical medications, heat, and cold applications have been helpful. - Impact: Pain interferes with sleep and daily activities, leading to unemployment and disability. Physical Exam - Appears afebrile. - Alert and oriented. - Mood and affect appropriate. - Follows and participates in conversation appropriately. Results Pain Management - Affect: Pain significantly impacts mood and psychological well-being, contributing to disability and unemployment. - Analgesia: Current medications include Percocet 5-325 mg, gabapentin 800 mg, and Flexeril 10 mg, all taken three times daily. - Adverse Effects: No specific adverse effects from medications were discussed. - Activities of Daily Living: Pain disrupts sleep and daily functioning, leading to unemployment. - Aberrant Drug Related Behaviors: No aberrant behaviors were reported. [facility] Medical History (Updated 12/01/24 @ 10:29 by Janette Brown LPN) Degenerative joint disease of cervical spine Other chronic pain Chronic neck pain Cervical spondylosis with myelopathy Restrictive airway disease Nocturnal hypoxemia Diabetes mellitus type 2 in obese HTN (hypertension) Surgical History History of cervical spinal surgery Hx of cholecystectomy H/O Spinal surgery Family History Mother Diabetes HTN (hypertension) Father Diabetes HTN (hypertension) Family/Other HTN (hypertension) Social History Alcohol intake: never Patient Tobacco Use Status: Former Tobacco user Physical Exam Vital Signs: Last Vital Signs Pulse 93 01/02/25 11:49 Resp 16 01/02/25 11:49 BP 100/64 01/02/25 11:49 Pulse Ox 93 01/02/25 11:49 Oxygen Delivery Method Room Air 01/02/25 11:49 BMI result Body Mass Index 28.7 Assessment & Plan Assessment & Plan (1) Chronic neck pain with history of cervical spinal surgery: Code(s): M54.2 - Cervicalgia; G89.28 - Other chronic postprocedural pain; Z98.890 - Other specified postprocedural states Category: Medical (2) Degenerative joint disease of cervical spine: Code(s): M47.812 - Spondylosis without myelopathy or radiculopathy, cervical region Category: Medical (3) Cervical spondylosis with myelopathy: Code(s): M47.12 - Other spondylosis with myelopathy, cervical region Category: Medical Plan Plan Patient was informed and verbally consented to the use of an ambient scribe for clinic note documentation during this visit. 1. Cervical Spondylosis With Myelopathy - Consideration of spinal cord stimulation as a treatment option, with discussion of potential challenges due to previous surgeries and anatomical changes. - Discussion of a perm trial for spinal cord stimulation to assess effectiveness before IPG implantation. - Exploration of red light therapy as a non-invasive alternative to manage pain and improve function. 2. Chronic Neck Pain With Radiculopathy - Current management includes medications such as Percocet, gabapentin, and Flexeril. - Consideration of reducing gabapentin dosage if alternative therapies prove effective. - Cervical spine brace prescription provided. 3. Chronic Low Back Pain - Continued use of current pain management strategies, including medications and physical therapy modalities. 4. Positive Antinuclear Antibody (Jennifer) And Rheumatoid Factor - Monitoring for potential development of autoimmune conditions. Discussion Notes During the consultation, we discussed the potential use of spinal cord stimulation for managing cervical spondylosis with myelopathy, considering the anatomical challenges due to previous surgeries. A trial period for the spinal cord stimulator was suggested to evaluate its effectiveness before considering permanent implantation. Additionally, we explored red light therapy as a non-invasive alternative to manage pain and improve function. We also reviewed the current medication regimen, including the possibility of reducing gabapentin dosage if alternative therapies prove effective. The patient was advised on the importance of consistent use of red light therapy to potentially reduce pain and improve quality of life. Patient Instructions - Continue current medication regimen as prescribed. - Consider trying red light therapy consistently in the morning and evening to manage pain. - Monitor for any changes in symptoms or side effects from medications. - Follow up with the clinic if there are any concerns or if symptoms worsen. Medications: New back brace As directed 1 ea 0RF back brace As directed 1 ea 0RF Coding Level of Care Code New Pt Level 4 (05622) Diagnoses Chronic neck pain with history of cervical spinal surgery M54.2; G89.28; Z98.890 Degenerative joint disease of cervical spine M47.812 Cervical spondylosis with myelopathy M47.12
[2025-01-02 11:49] VITALS: BP 100/64; PULSE 93; RESP 16; O2SAT 93; BMI 28.7
--- OUTSIDE RECORDS SUMMARY | 2025-01-02 14:10 | XMS_ITS | Encounter Summary ---
Author Organization [employer] Address [address] [place] [address] Care Team Providers Care Bulb Filler Name Role Phone Name, Dong LONDON Primary Care Provider [phone] Reason for Visit * Reason Comments Med Refill Encounter Details Date Type Department Care Team ([facility] st Contact Info) Description 03/26/2023 Refill [facility] MEDICINE 230 [place], [place] [phone] Name, MD Dong [address] [place], [place] [phone] Erectile dysfunction, unspecified erectile dysfunction type Social [...] type documented in this encounter Care Teams Bulb Filler Relationship Specialty Start Date End Date Name, MD Dong [address] [place] [address] PCP - General Family Medicine 10/14/18 documented as of this encounter
--- OUTSIDE RECORDS SUMMARY | 2025-01-02 14:10 | XMS_ITS | Encounter Summary ---
Author Organization [employer] Address [address] [facility] [address] 7t [place] [address] Care Team Providers Care Store Sales Consultant Name Role Phone Name, Dong LONDON Primary Care Provider [phone] Reason for Visit * Reason Comments Med Refill Encounter Details Date Type Department Care Team ([facility] st Contact Info) Description 12/29/2022 Refill [facility] MEDICINE 230 [place], [place] [phone] Name, MD Dong [address] [place] [address] Erectile dysfunction, unspecified erectile dysfunction type Social [...] type documented in this encounter Care Teams Store Sales Consultant Relationship Specialty Start Date End Date Name, MD Dong [address] [place] [address] PCP - General Family Medicine 10/14/18 documented as of this encounter
--- OUTSIDE RECORDS SUMMARY | 2025-01-02 14:10 | XMS_ITS | Encounter Summary ---
Author Organization [email or web address] Address [address] [facility] 7 [place] [address] Care Team Providers Care Field Marketing Specialist Name Role Phone Name, Dong LONDON Primary Care Provider [phone] Reason for Visit * Reason Comments Med Refill Encounter Details Date Type Department Care Team (Late st Contact Info) Description 11/29/2022 Refill [facility] MEDICINE 230 [place] [address] Name, MD Dong 230 [place] [address] Social History Tobacco Use Types Packs/Day Years [...] on filedocumented in this encounter Care Teams Field Marketing Specialist Relationship Specialty Start Date End Date NameDong MD 230 [place] [address] PCP - General Family Medicine 10/14/18 documented as of this encounter
--- OUTSIDE RECORDS SUMMARY | 2025-01-02 14:10 | XMS_ITS | Encounter Summary ---
Author Organization [employer] Address [address] [place] [address] Care Team Providers Care Mill Worker Name Role Phone Name, Dong LONDON Primary Care Provider Reason for Visit * Reason Comments Med Refill Encounter Details Date Type Department Care Team ([facility] st Contact Info) Description 02/20/2023 Refill [facility] MEDICINE 230 [place], [place] [phone] Name, MD Dong [address] [place] [address] Erectile dysfunction, unspecified erectile dysfunction type Social [...] * Clean Your Hands Often Miguel [facility] [place] [facility] Clinical Support (supporting Dong Costello MD) [...] type documented in this encounter Care Teams Mill Worker Relationship Specialty Start Date End Date Name, MD Dong [address] [place] [address] PCP - General Family Medicine 10/14/18 documented as of this encounter
--- OUTSIDE RECORDS SUMMARY | 2025-01-02 14:10 | XMS_ITS | Encounter Summary ---
Author Organization [employer] Address [address] [place] [address] Care Team Providers Care Swahili Teacher Name Role Phone Name, Dong LONDON Primary Care Provider [phone] Reason for Visit * Reason Onset Date Comments Med Refill 04/28/2023 Encounter Details Date Type Department Care Team (Late st Contact Info) Description 04/28/2023 Refill [facility] MEDICINE 230 [place] [address] Jennifer Peters MD 230 [place], [place] [phone] Benign prostatic hyperplasia without lower urinary tract [...] symptoms documented in this encounter Care Teams Swahili Teacher Relationship Specialty Start Date End Date Name, MD Dong [address] [place] [address] PCP - General Family Medicine 10/14/18 documented as of this encounter
--- OUTSIDE RECORDS SUMMARY | 2025-01-02 14:10 | XMS_ITS | Clinical Summary ---
Author Organization [facility] Address [address] [place] [address] Care Team Providers Care Senior Mobile Developer Name Role Phone Name, Dong LONDON Primary Care Provider [phone] Social History Tobacco Use Types Packs/Day Years [...] Group Subscriber ID Effective Dates Phone Address [facility] [id number] 2020-Presen t [address] [place] [address] HMO Care Teams Senior Mobile Developer Relationship Specialty Start Date End Date Name, MD Dong [address] [place] [address] [address] [place] [address] PCP - General Internal Medicine 02/22/20
--- OUTSIDE RECORDS SUMMARY | 2025-01-02 14:10 | XMS_ITS | Encounter Summary ---
Author Organization [employer] Address [address] [facility] 7 [place] [address] Care Team Providers Care Actuarial Analyst Name Role Phone Name, Dong LONDON Primary Care Provider [phone] Reason for Visit * Reason Comments Med Refill Encounter Details Date Type Department Care Team (Late st Contact Info) Description 11/27/2022 Refill [facility] MEDICINE 230 [place] [address] Name, MD Dong [address] [place] [address] Social History Tobacco Use Types Packs/Day Years [...] on filedocumented in this encounter Care Teams Actuarial Analyst Relationship Specialty Start Date End Date NameDong MD 230 [place] [address] PCP - General Family Medicine 10/14/18 documented as of this encounter
--- OUTSIDE RECORDS SUMMARY | 2025-01-02 14:11 | XMS_ITS | Encounter Summary ---
Author Organization [employer] Address [address] 7t [place] [address] Care Team Providers Care Food Beverage Server Name Role Phone Name, Dong LONDON Primary Care Provider [phone] Reason for Visit * Reason Comments Med Refill Encounter Details Date Type Department Care Team ([facility] st Contact Info) Description 05/19/2023 Refill [facility] MEDICINE 230 [place], [place] [phone] Name, MD Dong 230 [place] [address] Social History Tobacco Use Types Packs/Day Years [...] on filedocumented in this encounter Care Teams Food Beverage Server Relationship Specialty Start Date End Date Name, MD Dong 230 [place] [address] PCP - General Family Medicine 10/14/18 documented as of this encounter
--- OUTSIDE RECORDS SUMMARY | 2025-01-02 14:11 | XMS_ITS | Encounter Summary ---
Author Organization [employer] Address [address] 7t [place] [address] Care Team Providers Care Jukebox Routeman Name Role Phone Name, Dong LONDON Primary Care Provider [phone] Reason for Visit * Reason Comments Med Refill Encounter Details Date Type Department Care Team (Late st Contact Info) Description 06/24/2024 Refill [facility] MEDICINE 230 [place], [place] [phone] Khushboo Munson DO 230 [place] [address] Benign prostatic hyperplasia without lower urinary tract [...] documented as of this encounter Care Teams Jukebox Routeman Relationship Specialty Start Date End Date Name, MD Dong 230 [place] [address] PCP - General Family Medicine 10/14/18 documented as of this encounter
--- OUTSIDE RECORDS SUMMARY | 2025-01-02 14:11 | XMS_ITS | Encounter Summary ---
Author Organization [employer] Address [address] 7t [place] [address] Care Team Providers Care Director Global Sales Name Role Phone Name, Dong LONDON Primary Care Provider Reason for Visit * Reason Comments Med Refill Encounter Details Date Type Department Care Team ([facility] st Contact Info) Description 07/08/2023 Refill [facility] MEDICINE 230 [place], [place] [phone] Name, MD Dong 230 [place] [address] Social History Tobacco Use Types Packs/Day Years [...] documented as of this encounter Care Teams Director Global Sales Relationship Specialty Start Date End Date Name, MD Dong 230 [place] [address] PCP - General Family Medicine 10/14/18 documented as of this encounter
--- OUTSIDE RECORDS SUMMARY | 2025-01-02 14:11 | XMS_ITS | Encounter Summary ---
Author Organization [employer] Address [address] 7t [place] [address] Care Team Providers Care Trekking Guide Name Role Phone Name, Dong LONDON Primary Care Provider [phone] Reason for Visit * Reason Comments Med Refill Encounter Details Date Type Department Care Team (Late st Contact Info) Description 06/24/[address] [facility] MEDICINE 230 [place], [place] [phone] Name, MD Dong 230 [place] [address] Erectile dysfunction, unspecified erectile dysfunction type Social [...] documented as of this encounter Care Teams Trekking Guide Relationship Specialty Start Date End Date Name, MD Dong 230 [place] [address] PCP - General Family Medicine 10/14/18 documented as of this encounter
--- OUTSIDE RECORDS SUMMARY | 2025-01-02 14:11 | XMS_ITS | Encounter Summary ---
Author Organization [employer] Address [address] 7t [place] [address] Care Team Providers Care Medical Laboratory Assistant Name Role Phone Name, Dong LONDON Primary Care Provider [phone] Reason for Visit * Reason Comments Med Refill Encounter Details Date Type Department Care Team (Late st Contact Info) Description 07/12/2024 Refill [facility] MEDICINE 230 [place], [place] [phone] Name, MD Dong 230 [place] [address] Erectile dysfunction, unspecified erectile dysfunction type Social [...] documented as of this encounter Care Teams Medical Laboratory Assistant Relationship Specialty Start Date End Date Name, MD Dong 230 [place] [address] PCP - General Family Medicine 10/14/18 documented as of this encounter
--- OUTSIDE RECORDS SUMMARY | 2025-01-02 14:11 | XMS_ITS | Encounter Summary ---
Author Organization [employer] Address [address] 7t [place] [address] Care Team Providers Care Web Operations Administrator Name Role Phone Name, Dong LONDON Primary Care Provider [phone] Reason for Visit * Reason Onset Date Comments Med Refill 08/22/2024 Encounter Details Date Type Department Care Team (Late st Contact Info) Description 08/22/2024 Refill [facility] MEDICINE 230 [place], [place] [phone] Name, MD Dong 230 [place], [place] [phone] Cervical spondylosis with myelopathy; Chronic neck pain [...] documented as of this encounter Care Teams Web Operations Administrator Relationship Specialty Start Date End Date Name, MD Dong [address] [place] [address] PCP - General Family Medicine 10/14/18 documented as of this encounter
--- OUTSIDE RECORDS SUMMARY | 2025-01-02 14:11 | XMS_ITS | Encounter Summary ---
Author Organization [employer] Address [address] 7[address] [place] [address] Care Team Providers Care Web Production Artist Name Role Phone Name, Dong LONDON Primary Care Provider [phone] Reason for Visit * Reason Comments Med Refill Encounter Details Date Type Department Care Team (Late st Contact Info) Description 05/27/2024 Refill [facility] MEDICINE 230 [place] [address] Khushboo Munson DO 230 [place] [address] Social History Tobacco Use Types Packs/Day Years [...] as of this encounter Care Teams Web Production Artist Relationship Specialty Start Date End Date Name, MD Dong 230 [place] [address] PCP - General Family Medicine 10/14/18 documented as of this encounter
--- OUTSIDE RECORDS SUMMARY | 2025-01-02 14:12 | XMS_ITS | Encounter Summary ---
Author Organization [employer] Address [address] 7[address] [place] [address] Care Team Providers Care Cooling Room Attendant Name Role Phone Name, Dong LONDON Primary Care Provider [phone] Reason for Visit * Reason Onset Date Comments Med Refill 10/18/2024 Encounter Details Date Type Department Care Team (Late st Contact Info) Description 10/18/2024 Refill [facility] MEDICINE 230 [place], [place] [phone] Name, MD Dong 230 [place], [place] [phone] Cervical spondylosis with myelopathy; Chronic neck pain [...] documented as of this encounter Care Teams Cooling Room Attendant Relationship Specialty Start Date End Date Name, MD Dong [address] [place] [address] PCP - General Family Medicine 10/14/18 documented as of this encounter
--- OUTSIDE RECORDS SUMMARY | 2025-01-02 14:12 | XMS_ITS | Encounter Summary ---
Author Organization [employer] Address [address] 7[address] [place] [address] Care Team Providers Care Roof Shingler Name Role Phone Name, Dong LONDON Primary Care Provider [phone] Reason for Visit * Reason Comments Med Refill Encounter Details Date Type Department Care Team (Late st Contact Info) Description 08/22/2024 Refill [facility] MEDICINE 230 [place], [place] [phone] Name, MD Dong 230 [place] [address] Erectile dysfunction, unspecified erectile dysfunction type Social [...] documented as of this encounter Care Teams Roof Shingler Relationship Specialty Start Date End Date Name, MD Dong 230 [place] [address] PCP - General Family Medicine 10/14/18 documented as of this encounter
--- OUTSIDE RECORDS SUMMARY | 2025-01-02 14:12 | XMS_ITS | Encounter Summary ---
Author Organization [employer] Address [address] 7t [place] [address] Care Team Providers Care Head Concierge Name Role Phone Name, Dong LONDON Primary Care Provider [phone] Reason for Visit * Reason Comments Med Refill Encounter Details Date Type Department Care Team ([facility] st Contact Info) Description 11/13/2023 Refill [facility] MED & PEDS [address] [place], [place] [phone] Name, MD Dong 230 [place] [address] Social History Tobacco Use Types Packs/Day Years [...] documented as of this encounter Care Teams Head Concierge Relationship Specialty Start Date End Date Name, MD Dong 230 [place] [address] PCP - General Family Medicine 10/14/18 documented as of this encounter
--- OUTSIDE RECORDS SUMMARY | 2025-01-02 14:12 | XMS_ITS | Encounter Summary ---
Author Organization [employer] Address [address] 7t [place] [address] Care Team Providers Care Spline Rolling Machine Job Setter Name Role Phone Name, Dong LONDON Primary Care Provider [phone] Reason for Visit * Reason Comments Med Refill Encounter Details Date Type Department Care Team ([facility] st Contact Info) Description 10/28/2024 Refill [facility] MEDICINE 230 [place], [place] [phone] Name, MD Dong 230 [place] [address] Social History Tobacco Use Types Packs/Day Years [...] documented as of this encounter Care Teams Spline Rolling Machine Job Setter Relationship Specialty Start Date End Date Name, MD Dong 230 [place] [address] PCP - General Family Medicine 10/14/18 documented as of this encounter
--- OUTSIDE RECORDS SUMMARY | 2025-01-02 14:12 | XMS_ITS | Encounter Summary ---
Author Organization [employer] Address [address] [facility] 7t [place] [address] Care Team Providers Care Hospitalist Nocturnist Physician Name Role Phone NameDong MD Primary Care Provider [phone] Reason for Visit * Reason Comments Med Refill Encounter Details Date Type Department Care Team ([facility] st Contact Info) Description 07/08/2022 Refill [facility] MEDICINE 230 [place] [address] NameDong MD 230 [place] [address] Erectile dysfunction, unspecified erectile dysfunction type Social [...] type documented in this encounter Care Teams Hospitalist Nocturnist Physician Relationship Specialty Start Date End Date NameDong MD 230 [place] [address] PCP - General Family Medicine 10/14/18 documented as of this encounter
--- OUTSIDE RECORDS SUMMARY | 2025-01-02 14:12 | XMS_ITS | Encounter Summary ---
Author Organization [employer] Address [address] 7t [place] [address] Care Team Providers Care Forensic Anthropologist Name Role Phone Name, Dong LONDON Primary Care Provider [phone] Reason for Visit * Reason Comments Med Refill Encounter Details Date Type Department Care Team (Late st Contact Info) Description 11/13/2023 Refill [facility] MEDICINE 230 [place], [place] [phone] Name, MD Dong 230 [place] [address] Erectile dysfunction, unspecified erectile dysfunction type Social [...] documented as of this encounter Care Teams Forensic Anthropologist Relationship Specialty Start Date End Date Name, MD Dong 230 [place] [address] PCP - General Family Medicine 10/14/18 documented as of this encounter
--- OUTSIDE RECORDS SUMMARY | 2025-01-02 14:12 | XMS_ITS | Encounter Summary ---
Author Organization [employer] Address [address] 7t [place] [address] Care Team Providers Care Chief Operations Officer Name Role Phone Name, Dong LONDON Primary Care Provider Reason for Visit * Reason Comments Med Refill Encounter Details Date Type Department Care Team (Late st Contact Info) Description 10/16/2023 Refill [facility] MEDICINE 230 [place], [place] [phone] Name, MD Dong 230 [place] [address] Erectile dysfunction, unspecified erectile dysfunction type Social [...] documented as of this encounter Care Teams Chief Operations Officer Relationship Specialty Start Date End Date Name, MD Dong 230 [place] [address] PCP - General Family Medicine 10/14/18 documented as of this encounter
--- OUTSIDE RECORDS SUMMARY | 2025-01-02 14:12 | XMS_ITS | Encounter Summary ---
Author Organization [employer] Address [address] [facility] [address] [facility] 7t [place] [address] Care Team Providers Care Press Offbearer Name Role Phone Name, Dong LONDON Primary Care Provider [phone] Reason for Visit * Reason Comments Med Refill Encounter Details Date Type Department Care Team ([facility] st Contact Info) Description 06/26/[address] [facility] MEDICINE 230 [place], [place] [phone] Name, MD Dong 230 [place] [address] Type 2 diabetes mellitus without complication, unspecified whether fci insulin use ([facility] Social History Tobacco Use Types Packs/Day Years [...] 2 diabetes mellitus without complication, unspecified whether fci insulin use documented in this encounter Care Teams Press Offbearer Relationship Specialty Start Date End Date Name, MD Dong 230 [place] [address] PCP - General Family Medicine 10/14/18 documented as of this encounter
--- OUTSIDE RECORDS SUMMARY | 2025-01-02 14:12 | XMS_ITS | Encounter Summary ---
Author Organization [employer] Address [address] 7t [place] [address] Care Team Providers Care Certified Physician'S Assistant Name Role Phone Name, Dong LONDON Primary Care Provider [phone] Encounter Details Date Type Department Care Team [...] on filedocumented in this encounter Care Teams Certified Physician'S Assistant Relationship Specialty Start Date End Date Name, MD Dong [address] [place] [address] PCP - General Family Medicine 10/14/18 documented as of this encounter
--- OUTSIDE RECORDS SUMMARY | 2025-01-02 14:13 | XMS_ITS | Encounter Summary ---
Author Organization [employer] Address [address] 7t [place] [address] Care Team Providers Care House Detective Name Role Phone Name, Dong LONDON Primary Care Provider [phone] Reason for Visit * Reason Comments Med Refill Encounter Details Date Type Department Care Team ([facility] st Contact Info) Description 12/27/2024 Refill [facility] CHC MED & PEDS [address] [place] [address] Name, MD Dong 230 [place] [address] Erectile dysfunction, unspecified erectile dysfunction type Social [...] documented as of this encounter Care Teams House Detective Relationship Specialty Start Date End Date Name, MD Dong [address] [place] [address] PCP - General Family Medicine 10/14/18 documented as of this encounter
--- OUTSIDE RECORDS SUMMARY | 2025-01-02 14:13 | XMS_ITS | Encounter Summary ---
Author Organization [employer] Address [address] 7t [place] [address] Care Team Providers Care Rod Bending Machine Operator Name Role Phone Name, Dong LONDON Primary Care Provider [phone] Reason for Visit * Reason Comments Med Refill Encounter Details Date Type Department Care Team ([facility] st Contact Info) Description 01/26/2024 Refill [facility] MEDICINE 230 [place], [place] [phone] Name, MD Dong 230 [place] [address] Erectile dysfunction, unspecified erectile dysfunction type Social [...] is your housing situation today? I have wliber zhou 05/27/[address] you [...] documented as of this encounter Care Teams Rod Bending Machine Operator Relationship Specialty Start Date End Date Name, MD Dong 230 [place] [address] PCP - General Family Medicine 10/14/18 documented as of this encounter
--- OUTSIDE RECORDS SUMMARY | 2025-01-02 14:13 | XMS_ITS | Encounter Summary ---
Author Organization [employer] Address [address] 7t [place] [address] Care Team Providers Care Fruit Packer Name Role Phone Name, Dong LONDON Primary Care Provider [phone] Reason for Visit * Reason Comments Med Refill Encounter Details Date Type Department Care Team (Late st Contact Info) Description 03/02/2024 Refill [facility] MEDICINE 230 [place], [place] [phone] Name, MD Dong 230 [place] [address] Erectile dysfunction, unspecified erectile dysfunction type; Benign [...] documented as of this encounter Care Teams Fruit Packer Relationship Specialty Start Date End Date Name, MD Dong 230 [place] [address] PCP - General Family Medicine 10/14/18 documented as of this encounter
--- OUTSIDE RECORDS SUMMARY | 2025-01-02 14:13 | XMS_ITS | Encounter Summary ---
Author Organization [employer] Address [address] [place] [address] Care Team Providers Care Vinegar Maker Name Role Phone Name, Dong LONDON Primary Care Provider [phone] Reason for Visit * Reason Comments Med Refill Encounter Details Date Type Department Care Team ([facility] st Contact Info) Description 12/28/2024 Refill [facility] MED & PEDS [address] [place] [address] Name, MD Dong 230 [place] [address] Erectile dysfunction, unspecified erectile dysfunction type Social [...] documented as of this encounter Care Teams Vinegar Maker Relationship Specialty Start Date End Date Name, MD Dnog [address] [place] [address] PCP - General Family Medicine 10/14/18 documented as of this encounter
--- OUTSIDE RECORDS SUMMARY | 2025-01-02 14:13 | XMS_ITS | Encounter Summary ---
Author Organization [employer] Address [address] [place] [address] Care Team Providers Care Nuclear Fuel Enrichment Technician Name Role Phone Name, Dong LONDON Primary Care Provider [phone] Reason for Visit * Reason Onset Date Comments Med Refill 11/30/2023 Encounter Details Date Type Department Care Team (Late st Contact Info) Description 11/30/2023 Refill [facility] MEDICINE 230 [place], [place] [phone] Name, MD Dong 230 [place] [address] Erectile dysfunction, unspecified erectile dysfunction type Social [...] documented as of this encounter Care Teams Nuclear Fuel Enrichment Technician Relationship Specialty Start Date End Date Name, MD Dong 230 [place] [address] PCP - General Family Medicine 10/14/18 documented as of this encounter
--- OUTSIDE RECORDS SUMMARY | 2025-01-02 14:13 | XMS_ITS | Encounter Summary ---
Author Organization [employer] Address [address] 7t [place] [address] Care Team Providers Care Assistant Director Of Security Name Role Phone Name, Dong LONDON Primary Care Provider Reason for Visit * Reason Onset Date Comments Med Refill 11/15/2024 Encounter Details Date Type Department Care Team (Late st Contact Info) Description 11/15/2024 Refill [facility] MEDICINE 230 [place], [place] [phone] Name, MD Dong 230 [place], [place] [phone] Cervical spondylosis with myelopathy; Chronic neck pain [...] documented as of this encounter Care Teams Assistant Director Of Security Relationship Specialty Start Date End Date Name, MD Dong [address] [place] [address] PCP - General Family Medicine 10/14/18 documented as of this encounter
--- OUTSIDE RECORDS SUMMARY | 2025-01-02 14:13 | XMS_ITS | Encounter Summary ---
Author Organization [employer] Address [address] [place] [address] Care Team Providers Care 3D Artist Name Role Phone Name, Dong LONDON Primary Care Provider [phone] Reason for Visit * Reason Comments Med Refill Encounter Details Date Type Department Care Team ([facility] st Contact Info) Description 12/27/2024 Refill [facility] MEDICINE 230 [place], [place] [phone] Name, MD Dong 230 [place] [address] Benign prostatic hyperplasia without lower urinary tract [...] your housing situation today? I have wilber hzou 11/29/[address] you li [...] documented as of this encounter Care Teams 3D Artist Relationship Specialty Start Date End Date Name, MD Dong [address] [place] [address] PCP - General Family Medicine 10/14/18 documented as of this encounter
--- OUTSIDE RECORDS SUMMARY | 2025-01-02 14:13 | XMS_ITS | Encounter Summary ---
Author Organization [employer] Address [address] 7[address] [place] [address] Care Team Providers Care Coal Passer Name Role Phone Name, Dong LONDON Primary Care Provider [phone] Reason for Visit * Reason Onset Date Comments Med Refill 11/17/2023 Encounter Details Date Type Department Care Team (Late st Contact Info) Description 11/17/2023 Refill [facility] MEDICINE 230 [place], [place] [phone] Name, MD Dong 230 [place], [place] [phone] Cervical spondylosis with myelopathy; Chronic neck pain [...] documented as of this encounter Care Teams Coal Passer Relationship Specialty Start Date End Date Name, MD Dong [address] [place] [address] PCP - General Family Medicine 10/14/18 documented as of this encounter
--- OUTSIDE RECORDS SUMMARY | 2025-01-02 14:13 | XMS_ITS | Encounter Summary ---
Author Organization [employer] Address [address] 7[address] [place] [address] Care Team Providers Care Image Consultant Name Role Phone Name, Dong LONDON Primary Care Provider [phone] Reason for Visit * Reason Comments Med Refill Encounter Details Date Type Department Care Team ([facility] st Contact Info) Description 11/23/2024 Telephone [facility] MEDICINE 230 [place], [place] [phone] Name, MD Dong 230 [place], [place] [phone] Med Refill Social History Tobacco Use Types Packs/Day Years [...] the past 12 months, has t he [employer], gas, oil or water company threatened to [...] encounter Miscellaneous Notes * Telephone Encounter - Tabby Pratt RN - 12/02/2024 12:08 PM EDT Images from the original note were not included. This message came through in the pt. Portal but, I do not see any upcoming openings with Dr. Costello that I can schedule. Please discuss with Dr. Costello a good place in schedule to make appt. For pt. And please call pt. Back when you decide. Thank you Pt. Incoming pt. Portal message: Dear Dr. Costello, I???m reaching out to discuss the possibility of starting Methotrexate. My recent lab results show elevated inflammatory markers, including CRP, ESR, BUFFY, and rheumatoid factor. These findings align with the chronic symptoms I???ve been experiencing--joint pain, fatigue, and cognitive fog--and suggest an autoimmune or inflammatory process may be active. Given the persistence of these symptoms and the lab evidence, I???d like to explore Methotrexate as a treatment option. I understand it requires monitoring and may not be appropriate for everyone, but I???m open to discussing dosage, risks, and any necessary baseline tests. Please let me know if I can get an Rx for Methotrexate through [facility] or if you recommend a referral to rheumatology for further evaluation. Thank you for your continued support. Sincerely, Longabraham Nerymarimar Paige [id number] - November 29, 2024.pdf documented in this encounter Plan of Treatment Not on file documented as of this encounter Visit Diagnoses Diagnosis Cervical spondylosis with myelopathy Chronic neck pain Cervicalgia documented in this encounter Additional Health Concerns Assessment Noted Time PHQ-9 Depression Total Score: 0 05/27/19 24 9:32 AM EDT documented as of this encounter Care Teams Image Consultant Relationship Specialty Start Date End Date Name, MD Dong 230 [place] [address] PCP - General Family Medicine 10/14/18 documented as of this encounter
--- OUTSIDE RECORDS SUMMARY | 2025-01-02 14:13 | XMS_ITS | Encounter Summary ---
Author Organization [employer] Address [address] [facility] [address] [place] [address] Care Team Providers Care Digital Imaging Specialist Name Role Phone Name, Dong LONDON Primary Care Provider [phone] Reason for Visit * Reason Comments Med Refill Encounter Details Date Type Department Care Team ([facility] st Contact Info) Description 01/12/2024 Refill [facility] MED[facility]INE [address] [place], [place] [phone] Name, MD Dong [address] [place] [address] Erectile dysfunction, unspecified erectile dysfunction type Social [...] documented as of this encounter Care Teams Digital Imaging Specialist Relationship Specialty Start Date End Date Name, MD Dong [address] [place] [address] PCP - General Family Medicine 10/14/18 documented as of this encounter
--- OUTSIDE RECORDS SUMMARY | 2025-01-02 14:14 | XMS_ITS | Encounter Summary ---
Author Organization [employer] Address [address] [facility] 7t [place] [address] Care Team Providers Care Dental Lab Technician Name Role Phone Name, Dong LONDON Primary Care Provider [phone] Reason for Visit * Reason Comments Med Refill Encounter Details Date Type Department Care Team ([facility] st Contact Info) Description 09/01/2022 Refill [facility] MED[facility] [address] [place], [place] [phone] Name, MD Dong [address] [place] [address] Type 2 diabetes mellitus without complication, unspecified whether usp insulin use ([facility]) Social History Tobacco Use Types Packs/Day Years [...] 2 diabetes mellitus without complication, unspecified whether usp insulin use documented in this encounter Care Teams Dental Lab Technician Relationship Specialty Start Date End Date Name, MD Dong [address] [place] [address] PCP - General Family Medicine 10/14/18 documented as of this encounter
--- OUTSIDE RECORDS SUMMARY | 2025-01-02 14:14 | XMS_ITS | Encounter Summary ---
Author Organization [employer] Address [address] [place] [address] Care Team Providers Care Electrical Project Engineer Name Role Phone Name, Dong LONDON Primary Care Provider [phone] Reason for Visit * Reason Comments Med Refill Encounter Details Date Type Department Care Team ([facility] st Contact Info) Description 01/28/2024 Refill [facility] MEDICINE [address] [place], [place] [phone] Name, MD Dong [address] [place] [address] Social History Tobacco Use Types Packs/Day Years [...] documented as of this encounter Care Teams Electrical Project Engineer Relationship Specialty Start Date End Date Name, MD Dong [address] [place] [address] PCP - General Family Medicine 10/14/18 documented as of this encounter
--- OUTSIDE RECORDS SUMMARY | 2025-01-02 14:14 | XMS_ITS | Encounter Summary ---
Author Organization [employer] Address [address] [place] [address] Care Team Providers Care Audiovisual Production Specialist Name Role Phone Name, Dong LONDON Primary Care Provider [phone] Reason for Visit * Reason Comments Med Refill Encounter Details Date Type Department Care Team (Late st Contact Info) Description 12/11/2024 Refill [facility] MEDICINE [address] [place] [address] Khushboo Munosn DO [address] [place] [address] Social History Tobacco Use Types Packs/Day Years [...] documented as of this encounter Care Teams Audiovisual Production Specialist Relationship Specialty Start Date End Date Name, MD Dong [address] [place] [address] PCP - General Family Medicine 10/14/18 documented as of this encounter
--- OUTSIDE RECORDS SUMMARY | 2025-01-02 14:15 | XMS_ITS | Clinical Summary ---
Author Organization [employer] Address [address] [facility] 7t [place] [address] Care Team Providers Care Letter Sorting Machine Operator Name Role Phone Name, Dong LONDON Primary Care Provider [phone] Allergies Active Allergy Reactions Criticality Noted Date Comments Lisinopril Cough 10/09/2014 Other reaction(s): cough Medications * This document contains information received from the source organization and may not represent a complete record from that organization. Lancets (OneTouch Delica Plus [id number]) miscIndications :Type 2 diabetes mellitus without complication, unspecified whether mcc insulin use Use as directed to check blood sugar three times every day 100 each 3 04/28/19 23 Active Multiple Vitamin (Multi-Vitamin) tablet Take 1 tablet by mouth in the morning. 90 tablet 1 09/30/19 23 Active glucose blood (OneTouch Ultra) test stripIndication s:Type 2 diabetes mellitus without complication, unspecified whether assistant terminal manager insulin use USE TO TEST BLOOD SUGAR THREE TIMES [...] daily. 90 tablet 2 09/15/19 25 Active terazosin (Hytrin) 10 MG capsuleIndicati ons:Benign prostatic hyperplasia without lower urinary tract symptoms TAKE 1 CAPSULE BY MOUTH AT BEDTIME 90 capsule 1 10/04/19 25 Active traZODone (Desyrel) 100 MG tablet Take 2 tablets by mouth at bedtime. 180 tablet 10/07/19 25 Active amLODIPine (Norvasc) 5 MG tablet [...] 90 tablet 11 11/30/19 25 026 Active tadalafil (Cialis) 5 MG tabletIndicatio ns:Erectile dysfunction, unspecified erectile dysfunction type Take 1 tablet by mouth daily. 90 tablet 12/03/19 25 Active mometasone (Elocon) 0.1 % ointment Apply topically to affected area once daily. 45 g 12/22/19 25 Active oxyCODONE-aceta minophen (Percocet) 5-325 MG tabletIndicatio ns:Chronic neck pain TAKE ONE TABLET EVERY 8 HOURS NEEDED FOR PAIN 84 tablet 12/28/19 25 025 Active cyclobenzaprine (Flexeril) 10 MG tabletIndicatio ns:Erectile dysfunction, unspecified erectile dysfunction type Take 1 tablet by mouth every 6 hours during the day. 90 tablet 12/30/19 25 Active Jardiance 25 MG Take 1 tablet by mouth every morning. 90 tablet 12/30/19 25 Active mometasone (Elocon) 0.1 % ointment Apply topically to affected area once daily. 45 g 10/19/19 25 025 Discontinued Jardiance 25 MG Take 1 tablet by mouth every morning. 90 tablet 10/20/19 25 025 Discontinued cyclobenzaprine (Flexeril) 10 MG tabletIndicatio ns:Erectile dysfunction, unspecified erectile dysfunction type Take 1 tablet by mouth every 6 hours during the day. 90 tablet 10/25/19 25 025 Discontinued oxyCODONE-aceta minophen (Percocet) 5-325 MG tabletIndicatio ns:Chronic neck pain Take 1 tablet by mouth every 8 (eight) hours if needed for severe pain or moderate pain for up to 28 days. 84 tablet 11/30/19 25 025 Discontinued Active Problems Problem Noted Date Diagnosed Date [...] D deficiency 03/25/2013 Syrinx of spinal cord ([facility]/HCC) 12/28/2012 Overview (09/05/2022): At the level of C5-C7. Initially described an MRI done at [facility] on 2009. Patient has chronic neck pain with radiation to the right arm, associated numbness and mild weakness. She was evaluated by a neurosurgeon at [facility]. He was explained that eventually might need surgical intervention. 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 Patient is currently following with neurosurgeon in [facility]. He has chronic pain on the cervical spine with radiation to both arms. MRI of the cervical spine was last done at [facility] on September 2009. Radiculopathy of arm 04/23/2010 Overview (09/05/2022): History of syrinx of the cervical spine High cholesterol 06/11/2007 Migraine with aura 01/07/2007 Overview (09/05/2022): IMO update HTN (hypertension) 09/18/2005 Encounters * This document contains information received from the source organization and may not represent a complete record from that organization. Date Type Department Care Team Description 12/28/2024 Refill [facility] MED & PEDS [address] [place] [address] NameDong MD Erectile dysfunction, unspecified erectile dysfunction type 12/27/2024 Refill [facility] MEDICINE [address] [place] [address] NameDong MD Benign prostatic hyperplasia without lower urinary tract symptoms 12/27/2024 Refill [facility] [address] [place] [address] NameDong MD Erectile dysfunction, unspecified erectile dysfunction type 12/22/2024 Refill [facility] MEDICINE [address] [place] [address] Dong Costello MD Chronic neck pain 12/20/2024 Refill [facility] MED[facility]INE [address] [place] [address] Dong Costello MD 12/11/2024 Refill [facility] MED[facility] [address] [place] [address] Khushboo Munson DO 12/08/2024 Telephone [facility] MED[facility]INE [address] [place] [address] Ml Parker RN 12/08/2024 Orders Only [facility] [address] [place] [address] Dong Costello MD Arthralgia, unspecified joint (Primary Dx); Polyarthritis with positive rheumatoid factor (CMS/HCC); Antinuclear antibody (BUFFY) positive 12/01/2024 Refill [facility] MED[facility]INE [address] [place] [address] Dong Costello MD Erectile dysfunction, unspecified erectile dysfunction type 11/29/2024 9:30 AM EDT Office Visit [facility] MED[facility]INE [address] [place] [address] Dong Costello MD Type 2 diabetes mellitus without complication, without long-term current use of insulin ([facility]) (Primary Dx); Screening for prostate cancer; Depression with anxiety; Cervical spondylosis with myelopathy; Chronic neck pain 11/29/2024 Travel 11/25/2024 Telephone [facility] [address] [place] [phone] Dong Costello MD Chart Prep 11/23/2024 Telephone [facility] [address] [place] [phone] Dong Costello MD Med Refill 11/22/2024 Travel 11/21/2024 Patient Outreach [facility] [address] [place] [phone] Dong Costello MD Pre-visit Planning (Pre visit planning LVM ) 11/21/2024 Refill [facility] [address] [place] [phone] Dong Costello MD Cervical spondylosis with myelopathy; Chronic neck pain 11/18/2024 Refill [facility] [address] [place] [phone] Dong Costello MD 11/18/2024 Refill [facility] [address] [place] [address] Khushboo Munson DO 11/15/2024 Refill [facility] [address] [place] [phone] Dong Costello MD Cervical spondylosis with myelopathy; Chronic neck pain 11/15/2024 Refill [facility] PED[facility] [address] [place], [place] [phone] Dong Costello MD Cervical spondylosis with myelopathy; Chronic neck pain 10/28/2024 Refill [facility] MED[facility]INE [address] [place] [address] Dong Costello MD 10/22/2024 Refill [facility] [address] [place] [address] Dong Costello MD Erectile dysfunction, unspecified erectile dysfunction type 10/21/2024 Refill [facility] [address] [place] [address] Dong Costello MD Cervical spondylosis with myelopathy; Chronic neck pain 10/18/2024 Refill [facility] [address] [place] [address] Dong Costello MD Cervical spondylosis with myelopathy; Chronic neck pain 10/18/2024 Refill [facility] [address] [place] [address] Dong Costello MD Cervical spondylosis with myelopathy; Chronic neck pain 10/17/2024 Refill [facility] [address] [place] [address] Dong Costello MD 10/05/2024 Refill [facility] [address] [place] [address] Dong Costello MD from Last 3 Months Immunizations Immunization Administration Dates Next Due Influenza Injectable Quadriv alant Preservative Free IIV4 MDCK 12/04/2021,12/01/2019 Influenza injectable quadriv alent preservative free 12/26/2022,12/08/2020,12/01/2016 Influenza, IIV3, injectable 01/02/2016,1 03/29/2014,12/28/2012,03/10,02/22/2008,01/07/2007 Novel [id number], preservative-free 05/11/2009 Pfizer Covid-19 Vaccine 12+ 08/01/2021,0 [...] 01/27/2024 01/26/2023, 01/26/2023, 01/26/2023, Additional history exists Eye Exam 03/26/2025 03/26/2023, 03/16, 03/26/2023, Additional history exists Depression Monitoring 05/29/2025 11/29/2024, 025 Diabetes: Hemoglobin A1C 05/29/2025 025, 09/24/2023, 05/27/2023, Additional history exists Alcohol/Substance Use Screening 11/29/2025 11/29/2024 Disability Screening 11/29/2025 11/29/2024 SDOH Screening 11/29/2025 11/29/2024 Tobacco Screening 11/29/2025 11/29/2024 Diabetes: Urine Protein Screening 12/01/2025 12/01/2024, 09/24/2023, 01/26/2023, Additional history exists Lipid Panel 12/01/2025 12/01/2024, 09/13, 12/06/2021, Additional history exists Dental X-Ray: Full Mouth 05/07/2026 024, 08/12/2022, [...] Procedure Name Priority Date/Time Associated Diagnosis Comments PSA, TOTAL Routine 12/01/2024 8:46 AM EDT Type 2 diabetes mellitus without complication, without long-term current use of insulin (CMS/HCC) Cervical spondylosis with myelopathy Chronic neck pain Depression with anxiety Screening for prostate cancer LIPID PANEL, STANDARD Routine 12/01/2024 8:46 AM EDT Type 2 diabetes mellitus without complication, without long-term current use of insulin (CMS/HCC) Cervical spondylosis with myelopathy Chronic neck pain Depression with anxiety Screening for prostate cancer COMPREHENSIVE METABOLIC PANEL Routine 12/01/2024 8:46 AM EDT Type 2 diabetes mellitus without complication, without long-term current use of insulin (CMS/HCC) Cervical spondylosis with myelopathy Chronic neck pain Depression with anxiety Screening for prostate cancer CBC WITH AUTO DIFFERENTIAL Routine 12/01/2024 8:46 AM EDT Type 2 diabetes mellitus without complication, without long-term current use of insulin (CMS/HCC) Cervical spondylosis with myelopathy Chronic neck pain Depression with anxiety Screening for prostate cancer ALBUMIN, RANDOM URINE W/CREATININE Routine 12/01/2024 12:00 AM EDT Type 2 diabetes mellitus without complication, without long-term current use of insulin (CMS/HCC) Cervical spondylosis with myelopathy Chronic neck pain Depression with anxiety Screening for prostate cancer POCT GLYCATED HEMOGLOBIN, TOTAL Routine 11/29/2024 9:45 AM EDT Type 2 diabetes mellitus without complication, without long-term current use of insulin (CMS/HCC) POCT GLUCOSE Routine 11/29/2024 9:45 AM EDT Type 2 diabetes mellitus without complication, without long-term current use of insulin (CMS/HCC) HM COLONOSCOPY Routine 10/30/2023 11:10 AM EDT PANORAMIC RADIOGRAPHIC IMAGE Routine 05/06/2023 8:00 AM EST PROPHYLAXIS - ADULT Routine 03/23/2019 1 2:00 AM EST COMPREHENSIVE ORAL EVALUATION - NEW OR ESTABLISHED PATIENT Routine 01/05/2019 12:00 AM EDT from Last 3 Months or Most Recently Relevant to Health Maintenance Results * (ABNORMAL) CBC auto differential (12/01/2024 8:46 AM EDT) White Blood Count 5.6 4.8 - 10.8 X10*3/uL [facility] Red Blood Count 5.60 4.60 - 5.80 X10*6/uL [facility] Hemoglobin 14.6 14.0 - 18.0 g/dl [facility] Hematocrit 45.5 42.0 - 52.0 % [facility] Mean Corpuscular Volume 81.3 80.0 - 98.0 fL [facility] Mean Corpuscular Hemoglobin 26.1(L) 27.0 - 33.0 pg [facility] Mean Corpuscular HGB Conc 32.1 31.0 - 36.0 g/dl [facility] Red Cell Distribution Width 14.6 11.0 - 16.0 % [facility] Platelet Count 114(L) 160 - 400 X10*3/uL [facility] Mean Platelet Volume 9.9 9.4 - 12.4 fL [facility] Neutrophils Percent Auto 67.3 45 - 73 % [facility] Imm Gran Pct Auto 0.2 0.0 - 0.4 % [facility] Lymphocytes Percent Auto 23.5 20 - 40 % [facility] Monocytes Percent Auto 5.9 2 - 11 % [facility] Eosinophils Percent Auto 2.9 0 - 4 % [facility] Basophils Percent Auto 0.2 0 - 2 % [facility] NRBC Pct Auto 0.0 0.0 - 0.2 /100WBC [facility] Neutrophils Absolute Auto 3.8 2.0 - 8.3 x10*3/uL [facility] Imm Gran Abs Auto 0.01 0.00 - 0.03 X10*3/uL [facility] Lymphocytes Absolute Auto 1.3 1.2 - 4.9 X10*3/uL [facility] Monocytes Absolute Auto 0.3 0.1 - 1.2 X10*3/uL [facility] Eosinophils Absolute Auto 0.2 0.0 - 0.4 X10*3/uL [facility] Basophils Absolute Auto 0.0 0.0 - 0.2 X10*3/uL [facility] NRBC Abs Auto 0.000 0.0 - 0.012 X10*3/uL [facility] Blood Venous blood specimen / Unknown 12/01/2024 8:46 AM EDT 12/01/2024 2:32 PM EDT us Dong Name MD LAB BLOOD ORDERABLES Final Resul t [facility] [address] [place] [phone] * PSA,Total (12/01/2024 8:46 AM EDT) Prostate Specific Antigen 1.38 <0.05 - 4.0 ng/mL [facility] Comment:PSA methodology: Bobo Brunson i ChemiluminescentMicroparticle Immunoassay (CMIA) Blood Venous blood specimen / Unknown 12/01/2024 8:46 AM EDT 12/01/2024 2:32 PM EDT us Dong Costello MD LAB BLOOD ORDERABLES Final Resul t Performing Organization Address [facility] Co de Phone Number [facility] [address] [place] [phone] * (ABNORMAL) Lipid Panel, Standard (12/01/2024 8:46 AM EDT) Triglycerides 157(H) <150 mg/dL [facility] Comment:Desirable Triglyceri de: less than 150 mg/dLBorderline High Triglyceride 150-199 mg/dLHigh Triglyceride: 200-499 mg/dLVery High Triglyceride: greater than or equal to 5OO mg/dL Cholesterol 159 <200 mg/dL [facility] Comment:Desirable Cholestero l: less than 200 mg/dLBorderline High Cholesterol: 200-239 mg/dLHigh Cholesterol: greater than 239 mg/dL LDL Cholesterol Calculated 97 <100 mg/dL [facility] Comment:Desirable LDL: less than 100 mg/dLNear Optimal/Above Optimal LDL: 110- 129 mg/dLBorderline High LDL: 130-159 mg/dLHigh LDL: 160-189 mg/dLVery High LDL: greater than or equal to 190 mg/dL HDL Cholesterol 31(L) >40 mg/dL [facility] Comment:Desirable HDL: great er than 40 mg/dL Note: This HDL assay may give artificially low results in patients with liver disease. Blood Venous blood specimen / Unknown 12/01/2024 8:46 AM EDT 12/01/2024 2:32 PM EDT us Dong Costello MD LAB BLOOD ORDERABLES Final Resul t Performing Organization Address City/[facility]/ZIP Co de Phone Number [facility] [address] [place] [phone] * (ABNORMAL) Comprehensive Metabolic Panel (12/01/2024 8:46 AM EDT) Sodium 145 135 - 145 mmol/L [facility] Potassium 3.8 3.3 - 5.1 mmol/L [facility] Chloride 108 96 - 108 mmol/L [facility] Carbon Dioxide 29 22 - 29 mmol/L [facility] Anion Gap 12 12 - 20 [facility] Urea Nitrogen (BUN) 14 9 - 16 mg/dL [facility] Creatinine, Serum 1.02 0.5 - 1.4 mg/dL [facility] Estimated Glomerular Filt Rate >60 [facility] Comment:Chronic Kidney Disea se: Estimated GFR < 60 mL/min/[id number] Kidney Disease: Estimated GFR < 15 mL/min/1.73m2 Glucose 123(H) 60 - 115 mg/dL [facility] Calcium 9.8 8.4 - 10.2 mg/dL [facility] Bilirubin, Total 0.5 0.0 - 1.0 mg/dL [facility] Aspartate Amino Transferase 34 5 - 37 U/L [facility] Alanine Aminotransferase 23 0 - 40 U/L [facility] Total Protein 7.0 6.5 - 8.0 g/dL [facility] Albumin Level 4.4 3.5 - 5.0 g/dL [facility] Alkaline Phosphatase 71 39 - 117 U/L [facility] Blood Venous blood specimen / Unknown 12/01/2024 8:46 AM EDT 12/01/2024 2:32 PM EDT us Dong Costello MD LAB BLOOD ORDERABLES Final Resul t [facility] [address] [place] [phone] * Albumin, Random Urine W/Creatinine (12/01/2024 12:00 AM EDT) Creatinine, Urine 174.32 mg/dL [facility] Microalbumin Urine 9.0 mg/L [facility] Microalbum Creatinine Ratio Ur 5.1 <30 ug/mg cr [facility] Comment:Albumin/Creatinine R atio Reference Ranges: Normal: < 30 ug/mg creatinine Microalbuminuria: 30 - 300 ug/mg creatinineClinical Albuminuria: > 300 ug/mg creatinine Urine (Urine, Random) 12/01/2024 12/01/2024 Result Sean Costello MD LAB URINE ORDERABLES Final Resul t Performing Organization Address [facility] Co de Phone Number [facility] [address] [place] [phone] * (ABNORMAL) POCT Hgb A1c (11/29/2024 9:45 [...] specimen / Unknown 11/29/2024 9:45 AM EDT Result Sean Costello MD POINT OF CARE TEST ENTER/EDIT OR DERABLES Final Result * (ABNORMAL) Hm Colonoscopy (10/30/2023 11:10 AM EDT) Colonoscopy Abnormal(A ) Normal us Dong Costello MD HEALTH MAINTENANCE Final Result from Last 3 Months or Most Recently Relevant to Health Maintenance Insurance [employer] PPO [facility] Care Teams Letter Sorting Machine Operator Relationship Specialty Start Date End Date Name, MD Dong [address] [place] [phone] PCP - General Family Medicine 10/14/18
--- OUTSIDE RECORDS SUMMARY | 2025-01-02 14:15 | XMS_ITS | Encounter Summary ---
Author Organization [employer] Address [address] [facility] [address]t [place] [address] Care Team Providers Care Returned Materials Inspector Name Role Phone NameDong MD Primary Care Provider [phone] Reason for Visit * Reason Comments Med Refill Encounter Details Date Type Department Care Team ([facility] st Contact Info) Description 09/29/[address] [facility] MEDICINE [address] [place], [place] [phone] Name, MD Dong [address] [place] [address] Social History Tobacco Use Types Packs/Day Years [...] on filedocumented in this encounter Care Teams Returned Materials Inspector Relationship Specialty Start Date End Date Name, MD Dong [address] [place] [address] PCP - General Family Medicine 10/14/18 documented as of this encounter
== END 2025-01-02 12:45 | disposition home or self-care (01) ==
LOC: HO.PMC 11:29
PROVIDERS: PCP Internal Medicine Geriatric Medicine; Visit Provider Internal Medicine
DX: M54.2 Cervicalgia (principal); G89.28 Other chronic postprocedural pain; Z98.890 Other specified postprocedural states; M47.812 Spondylosis without myelopathy or radiculopathy, cervical region; M47.12 Other spondylosis with myelopathy, cervical region
CPT/HCPCS: 99204

== ENCOUNTER 2025-02-08 07:38 | Outpatient (AMB) | payer BC, SELFPAY ==
--- OUTSIDE RECORDS SUMMARY | 2025-02-08 07:41 | XMS_ITS | Encounter Summary ---
Author Organization [employer] Address [address] [facility] [address] [place] [address] Care Team Providers Care De Icer Finisher Name Role Phone Name, Dong LONDON Primary Care Provider [phone] Reason for Visit * Reason Comments Med Refill Encounter Details Date Type Department Care Team (Late st Contact Info) Description 10/16/2023 Refill [facility] MEDICINE [address] [place], [place] [phone] Name, MD Dong [address] [place] [address] Erectile dysfunction, unspecified erectile dysfunction type Social [...] as of this encounter Plan of Treatment Upcoming Encounters Date Type Department Care Team (Late st Contact Info) Description 04/21/2025 10:15 AM EST Office Visit [facility] MEDICINE [address] [place] [phone] NameDong MD [address] [place] [address] documented as of this encounter Visit Diagnoses Diagnosis Erectile dysfunction, unspecified erectile dysfunction type documented in this encounter Additional Health Concerns Assessment Noted Time PHQ-9 Depression Total Score: 0 05/27/19 24 9:32 AM EDT documented as of this encounter Care Teams De Icer Finisher Relationship Specialty Start Date End Date Name, MD Dong [address] [place] [phone] PCP - General Family Medicine 10/14/18 documented as of this encounter
--- OUTSIDE RECORDS SUMMARY | 2025-02-08 07:41 | XMS_ITS | Encounter Summary ---
Author Organization [employer] Address [address] [facility] [address] 7t [place] [address] Care Team Providers Care Engine Repairer Name Role Phone Name, Dong LONDON Primary Care Provider [phone] Reason for Visit * Reason Onset Date Comments Med Refill 04/28/2023 Encounter Details Date Type Department Care Team (Late st Contact Info) Description 04/28/2023 Refill [facility] [address] [place] [address] Jennifer Peters MD [address] [place], [place] [phone] Benign prostatic hyperplasia without lower urinary tract [...] Description 04/21/2025 10:15 AM EST Office Visit [facility] [address] [place] [address] Name, MD Dong [address] [place] [address] documented as of this encounter Visit Diagnoses Diagnosis Benign prostatic hyperplasia without lower urinary tract symptoms documented in this encounter Care Teams Engine Repairer Relationship Specialty Start Date End Date Name, MD Dong [address] [place] [address] PCP - General Family Medicine 10/14/18 documented as of this encounter
--- OUTSIDE RECORDS SUMMARY | 2025-02-08 07:41 | XMS_ITS | Clinical Summary ---
Author Organization [facility] Address [address] [place] [address] Care Team Providers Care Bridge Design Engineer Name Role Phone Name, Dong LONDON Primary Care Provider [phone] Social History Tobacco Use Types Packs/Day Years [...] Group Subscriber ID Effective Dates Phone Address [facility] [id number] 2020-Presen t [address] [place] [address] HMO Care Teams Bridge Design Engineer Relationship Specialty Start Date End Date Name, MD Dong [address] [place] [address] [address] [place] [address] PCP - General Internal Medicine 02/22/20
--- OUTSIDE RECORDS SUMMARY | 2025-02-08 07:41 | XMS_ITS | Encounter Summary ---
Author Organization [employer] Address [address] [facility] [address] 7t [place] [address] Care Team Providers Care Eco Industrial Development Consultant Name Role Phone Name, Dong LONDON Primary Care Provider [phone] Reason for Visit * Reason Comments Med Refill Encounter Details Date Type Department Care Team (Late st Contact Info) Description 05/27/2024 Refill [facility] 230 [place] [address] Khushboo Munson DO 230 [place] [address] Social History Tobacco Use Types Packs/Day Years [...] Description 04/21/2025 10:15 AM EST Office Visit [facility] [address] [place] [address] Name, MD Dong 230 [place] [address] documented as of this encounter Visit Diagnoses Not on filedocumented in this encounter Additional Health Concerns Assessment Noted Time PHQ-9 Depression Total Score: 0 05/27/19 24 9:32 AM EDT documented as of this encounter Care Teams Eco Industrial Development Consultant Relationship Specialty Start Date End Date Name, MD Dong [address] [place] [address] PCP - General Family Medicine 10/14/18 documented as of this encounter
--- OUTSIDE RECORDS SUMMARY | 2025-02-08 07:41 | XMS_ITS | Encounter Summary ---
Author Organization [employer] Address [address] [place] [address] 7 [place] [address] Care Team Providers Care Boring Machine Operator Production Name Role Phone NameDong MD Primary Care Provider [phone] Reason for Visit * Reason Comments Med Refill Encounter Details Date Type Department Care Team (Late Contact Info) Description 11/27/2022 Refill [facility] MED[facility] [address] [place] [address] [phone] Dong Costello MD [address] [place] [address] Social History Tobacco Use Types Packs/Day Years [...] Encounters Date Type Department Care Team (Late Contact Info) Description 04/21/2025 10:15 AM EST Office Visit [facility] [address] [place] [address] [phone] Dong Costello MD [address] [place] [address] [phone] documented as of this encounter Visit Diagnoses Not on filedocumented in this encounter Care Teams Boring Machine Operator Production Relationship Specialty Start Date End Date Name, MD Dong 230 [place] [address] PCP - General Family Medicine 10/14/18 documented as of this encounter
--- OUTSIDE RECORDS SUMMARY | 2025-02-08 07:41 | XMS_ITS | Encounter Summary ---
Author Organization [employer] Address [address] [facility] [facility] [address] 7t [place] [address] Care Team Providers Care Bell Staff Name Role Phone Name, Dong LONDON Primary Care Provider [phone] Reason for Visit * Reason Comments Med Refill Encounter Details Date Type Department Care Team ([facility] st Contact Info) Description 12/29/2022 Refill [facility] 230 [place], [place] [phone] Name, MD Dong 230 [place] [address] Erectile dysfunction, unspecified erectile dysfunction type Social [...] Description 04/21/2025 10:15 AM EST Office Visit [facility] [address] [place] [address] NameDong MD [address] [place] [address] documented as of this encounter Visit Diagnoses Diagnosis Erectile dysfunction, unspecified erectile dysfunction type documented in this encounter Care Teams Bell Staff Relationship Specialty Start Date End Date Dong Costello MD [address] [place] [address] PCP - General Family Medicine 10/14/18 documented as of this encounter
--- OUTSIDE RECORDS SUMMARY | 2025-02-08 07:41 | XMS_ITS | Encounter Summary ---
Author Organization [employer] Address [address] [facility] [address] 7t [place] [address] Care Team Providers Care Mine Engineering Manager Name Role Phone Name, Dong LONDON Primary Care Provider [phone] Reason for Visit * Reason Comments Med Refill Encounter Details Date Type Department Care Team (Late st Contact Info) Description 06/24/2024 Refill [facility]INE 230 [place], [place] [phone] Name, MD Dong 230 [place] [address] Erectile dysfunction, unspecified erectile dysfunction type Social [...] Description 04/21/2025 10:15 AM EST Office Visit [facility] MED[facility]INE [address] [place] [address] NameDong MD 230 [place] [address] documented as of this encounter Visit Diagnoses Diagnosis Erectile dysfunction, unspecified erectile dysfunction type documented in this encounter Additional Health Concerns Assessment Noted Time PHQ-9 Depression Total Score: 0 05/27/19 24 9:32 AM EDT documented as of this encounter Care Teams Mine Engineering Manager Relationship Specialty Start Date End Date Name, MD Dong [address] [place] [address] PCP - General Family Medicine 10/14/18 documented as of this encounter
--- OUTSIDE RECORDS SUMMARY | 2025-02-08 07:41 | XMS_ITS | Encounter Summary ---
Author Organization [employer] Address [address] 7t [place] [address] Care Team Providers Care Blood Bank Custodian Name Role Phone Name, Dong LONDON Primary Care Provider [phone] Reason for Visit * Reason Comments Med Refill Encounter Details Date Type Department Care Team ([facility] st Contact Info) Description 05/19/2023 Refill [facility] 230 [place], [place] [phone] Name, MD Dong 230 [place] [address] Social History Tobacco Use Types Packs/Day Years [...] Description 04/21/2025 10:15 AM EST Office Visit [facility] MED[facility] [address] [place] [address] NameDong MD [address] [place] [address] documented as of this encounter Visit Diagnoses Not on filedocumented in this encounter Care Teams Blood Bank Custodian Relationship Specialty Start Date End Date NameDong MD [address] [place] [address] PCP - General Family Medicine 10/14/18 documented as of this encounter
--- OUTSIDE RECORDS SUMMARY | 2025-02-08 07:41 | XMS_ITS | Encounter Summary ---
Author Organization [employer] Address [address] [facility] [address] 7t [place] [address] Care Team Providers Care Absorption Plant Operator Helper Name Role Phone Name, Dong LONDON Primary Care Provider [phone] Reason for Visit * Reason Comments Med Refill Encounter Details Date Type Department Care Team ([facility] st Contact Info) Description 01/22/2025 Refill [facility] [address] [place] [address] Name, MD Dong 230 [place] [address] Erectile dysfunction, unspecified erectile dysfunction type; Benign [...] Description 04/21/2025 10:15 AM EST Office Visit [facility] [address] [place] [address] Name, MD Dong 230 [place] [address] documented as of this encounter Visit Diagnoses Diagnosis Erectile dysfunction, unspecified erectile dysfunction type Benign prostatic hyperplasia without lower urinary tract symptoms documented in this encounter Additional Health Concerns Assessment Noted Time PHQ-9 Depression Total Score: 22 025 9:49 AM EDT documented as of this encounter Care Teams Absorption Plant Operator Helper Relationship Specialty Start Date End Date NameDong MD [address] [place] [address] PCP - General Family Medicine 10/14/18 documented as of this encounter
--- OUTSIDE RECORDS SUMMARY | 2025-02-08 07:41 | XMS_ITS | Encounter Summary ---
Author Organization [employer] Address [address] [facility] [address] 7t [place] [address] Care Team Providers Care Manager Oracle Name Role Phone Name, Dong LONDON Primary Care Provider [phone] Reason for Visit * Reason Comments Med Refill Encounter Details Date Type Department Care Team (Late st Contact Info) Description 06/24/2024 Refill [facility] 230 [place], [place] [phone] Khushboo Munson DO [address] [place] [address] Benign prostatic hyperplasia without lower urinary tract [...] 10:15 AM EST Office Visit [facility] [address] [place] [address] NameDong MD [address] [place] [address] documented as of this encounter Visit Diagnoses Diagnosis Benign prostatic hyperplasia without lower urinary tract symptoms documented in this encounter Additional Health Concerns Assessment Noted Time PHQ-9 Depression Total Score: 0 05/27/19 24 9:32 AM EDT documented as of this encounter Care Teams Manager Oracle Relationship Specialty Start Date End Date NameDong MD [address] [place] [address] PCP - General Family Medicine 10/14/18 documented as of this encounter
--- OUTSIDE RECORDS SUMMARY | 2025-02-08 07:41 | XMS_ITS | Encounter Summary ---
Author Organization [employer] Address [address] [facility] [address] 7t [place] [address] Care Team Providers Care Corporate Financial Analyst Name Role Phone Name, Dong LONDON Primary Care Provider [phone] Reason for Visit * Reason Onset Date Comments Med Refill 01/23/2025 Encounter Details Date Type Department Care Team (Late st Contact Info) Description 01/23/2025 Refill [facility] 230 [place] [address] Name, MD Dong 230 [place] [address] Social History Tobacco Use Types Packs/Day Years [...] Description 04/21/2025 10:15 AM EST Office Visit [facility] MED[facility]INE [address] [place] [address] Name, MD Dong [address] [place] [address] documented as of this encounter Visit Diagnoses Not on filedocumented in this encounter Additional Health Concerns Assessment Noted Time PHQ-9 Depression Total Score: 22 025 9:49 AM EDT documented as of this encounter Care Teams Corporate Financial Analyst Relationship Specialty Start Date End Date Name, MD Dong [address] [place] [address] PCP - General Family Medicine 10/14/18 documented as of this encounter
--- OUTSIDE RECORDS SUMMARY | 2025-02-08 07:41 | XMS_ITS | Encounter Summary ---
Author Organization [employer] Address [address] [facility] [address] 7t [place] [address] Care Team Providers Care Formula Weigher Name Role Phone Name, Dong LONDON Primary Care Provider [phone] Reason for Visit * Reason Comments Med Refill Encounter Details Date Type Department Care Team ([facility] st Contact Info) Description 07/08/2023 Refill [facility] 230 [place], [place] [phone] Name, MD Dong 230 [place] [address] Social History Tobacco Use Types Packs/Day Years [...] Description 04/21/2025 10:15 AM EST Office Visit [facility] [address] [place] [address] Name, MD Dong 230 [place] [address] documented as of this encounter Visit Diagnoses Not on filedocumented in this encounter Additional Health Concerns Assessment Noted Time PHQ-9 Depression Total Score: 0 05/27/19 24 9:32 AM EDT documented as of this encounter Care Teams Formula Weigher Relationship Specialty Start Date End Date NameDong MD [address] [place] [address] PCP - General Family Medicine 10/14/18 documented as of this encounter
--- OUTSIDE RECORDS SUMMARY | 2025-02-08 07:41 | XMS_ITS | Encounter Summary ---
Author Organization [employer] Address [address] [facility] [address] 7t [place] [address] Care Team Providers Care Cardiac Cath Lab Manager Name Role Phone Name, Dong LONDON Primary Care Provider [phone] Reason for Visit * Reason Comments Med Refill Encounter Details Date Type Department Care Team (Late st Contact Info) Description 07/12/2024 Refill [facility] 230 [place], [place] [phone] Name, MD Dong 230 [place] [address] Erectile dysfunction, unspecified erectile dysfunction type Social [...] Description 04/21/2025 10:15 AM EST Office Visit [facility] [address] [place] [address] NameDong MD 230 [place] [address] documented as of this encounter Visit Diagnoses Diagnosis Erectile dysfunction, unspecified erectile dysfunction type documented in this encounter Additional Health Concerns Assessment Noted Time PHQ-9 Depression Total Score: 0 05/27/19 24 9:32 AM EDT documented as of this encounter Care Teams Cardiac Cath Lab Manager Relationship Specialty Start Date End Date Name, MD Dong [address] [place] [address] PCP - General Family Medicine 10/14/18 documented as of this encounter
--- OUTSIDE RECORDS SUMMARY | 2025-02-08 07:41 | XMS_ITS | Encounter Summary ---
Author Organization [employer] Address [address] [facility] [address] 7t [place] [address] Care Team Providers Care Asbestos Shingle Inspector Name Role Phone Name, Dong LONDON Primary Care Provider [phone] Reason for Visit * Reason Comments Med Refill Encounter Details Date Type Department Care Team (Late st Contact Info) Description 08/22/2024 Refill [facility] 230 [place], [place] [phone] Name, MD Dong 230 [place] [address] Erectile dysfunction, unspecified erectile dysfunction type Social [...] Description 04/21/2025 10:15 AM EST Office Visit [facility] MED[facility]INE [address] [place] [address] NameDong MD 230 [place] [address] documented as of this encounter Visit Diagnoses Diagnosis Erectile dysfunction, unspecified erectile dysfunction type documented in this encounter Additional Health Concerns Assessment Noted Time PHQ-9 Depression Total Score: 0 05/27/19 24 9:32 AM EDT documented as of this encounter Care Teams Asbestos Shingle Inspector Relationship Specialty Start Date End Date Name, MD Dong [address] [place] [address] PCP - General Family Medicine 10/14/18 documented as of this encounter
--- OUTSIDE RECORDS SUMMARY | 2025-02-08 07:41 | XMS_ITS | Encounter Summary ---
Author Organization [employer] Address [address] [facility] [address] 7t [place] [address] Care Team Providers Care Corporate Logistics Manager Name Role Phone Name, Dong LONDON Primary Care Provider [phone] Reason for Visit * Reason Comments Med Refill Encounter Details Date Type Department Care Team (Late st Contact Info) Description 11/13/[address] [facility] 230 [place], [place] [phone] Name, MD Dong 230 [place] [address] Erectile dysfunction, unspecified erectile dysfunction type Social [...] Description 04/21/2025 10:15 AM EST Office Visit [facility] [address] [place] [address] NameDong MD 230 [place] [address] documented as of this encounter Visit Diagnoses Diagnosis Erectile dysfunction, unspecified erectile dysfunction type documented in this encounter Additional Health Concerns Assessment Noted Time PHQ-9 Depression Total Score: 0 05/27/19 24 9:32 AM EDT documented as of this encounter Care Teams Corporate Logistics Manager Relationship Specialty Start Date End Date Name, MD Dong [address] [place] [address] PCP - General Family Medicine 10/14/18 documented as of this encounter
--- OUTSIDE RECORDS SUMMARY | 2025-02-08 07:41 | XMS_ITS | Encounter Summary ---
Author Organization [employer] Address [address] [facility] [address] 7t [place] [address] Care Team Providers Care Buyer Intern Name Role Phone Name, Dong LONDON Primary Care Provider [phone] Reason for Visit * Reason Comments Med Refill Encounter Details Date Type Department Care Team ([facility] st Contact Info) Description 03/26/2023 Refill [facility] 230 [place], [place] [phone] Name, MD Dong 230 [place], [place] [phone] Erectile dysfunction, unspecified erectile dysfunction type Social [...] 10:15 AM EST Office Visit [facility] [address] [place] [address] Name, MD Dong [address] [place] [address] documented as of this encounter Visit Diagnoses Diagnosis Erectile dysfunction, unspecified erectile dysfunction type documented in this encounter Care Teams Buyer Intern Relationship Specialty Start Date End Date Name, MD Dong [address] [place] [address] PCP - General Family Medicine 10/14/18 documented as of this encounter
--- OUTSIDE RECORDS SUMMARY | 2025-02-08 07:41 | XMS_ITS | Encounter Summary ---
Author Organization [employer] Address [address] [place] [address] 7 [place] [address] Care Team Providers Care Disposal Worker Name Role Phone NameDong MD Primary Care Provider [phone] Reason for Visit * Reason Comments Med Refill Encounter Details Date Type Department Care Team (Late Contact Info) Description 11/29/2022 Refill [facility] [address] [place] [address] [phone] Dong Costello MD [address] [place] [address] Social History Tobacco Use Types Packs/Day Years [...] 10:15 AM EST Office Visit [facility] [address] [place] [address] [phone] Dong Costello MD [address] [place] [address] [phone] documented as of this encounter Visit Diagnoses Not on filedocumented in this encounter Care Teams Disposal Worker Relationship Specialty Start Date End Date Name, MD Dong 230 [place] [address] PCP - General Family Medicine 10/14/18 documented as of this encounter
--- OUTSIDE RECORDS SUMMARY | 2025-02-08 07:41 | XMS_ITS | Encounter Summary ---
Author Organization [employer] Address [address] [facility] 7t [place] [address] Care Team Providers Care Advertising Editor Name Role Phone Name, Dong LONDON Primary Care Provider [phone] Encounter Details Date Type Department Care Team (Latest Contact Info) Description 01/05/2019 Abstract [facility] CON[facility] Dental, Provider, DDS Social History Tobacco [...] Description 04/21/2025 10:15 AM EST Office Visit [facility] 230 [place] [address] NameDong MD 230 [place] [address] documented as of this encounter Visit Diagnoses Not on filedocumented in this encounter Care Teams Advertising Editor Relationship Specialty Start Date End Date Dong Costello MD 230 [place] [address] PCP - General Family Medicine 10/14/18 documented as of this encounter
--- OUTSIDE RECORDS SUMMARY | 2025-02-08 07:41 | XMS_ITS | Encounter Summary ---
Author Organization [employer] Address [address] [facility] [address] 7t [place] [address] Care Team Providers Care Vegetables Cook Name Role Phone Name, Dong LONDON Primary Care Provider [phone] Reason for Visit * Reason Comments Med Refill Encounter Details Date Type Department Care Team ([facility] st Contact Info) Description 02/20/2023 Refill [facility] 230 [place], [place] [phone] Name, MD Dong 230 [place] [address] Erectile dysfunction, unspecified erectile dysfunction type Social [...] COVID-19 * Clean Your Hands Often [facility] Clinical Support (supporting Dong Costello MD) [...] documented in this encounter Plan of Treatment Upcoming Encounters Date Type Department Care Team (Late st Contact Info) Description 04/21/2025 10:15 AM EST Office Visit [facility] MED[facility] [address] [place] [address] Dong Costello MD [address] [place] [address] documented as of this encounter Visit Diagnoses Diagnosis Erectile dysfunction, unspecified erectile dysfunction type documented in this encounter Care Teams Vegetables Cook Relationship Specialty Start Date End Date Dong Costello MD [address] [place] [address] PCP - General Family Medicine 10/14/18 documented as of this encounter
--- OUTSIDE RECORDS SUMMARY | 2025-02-08 07:41 | XMS_ITS | Encounter Summary ---
Author Organization [employer] Address [address] [facility] [address] [address] 7t [place] [address] Care Team Providers Care Production Inspector Name Role Phone Name, Dong LONDON Primary Care Provider [phone] Reason for Visit * Reason Onset Date Comments Med Refill 08/22/2024 Encounter Details Date Type Department Care Team (Late st Contact Info) Description 08/22/2024 Refill [facility] 230 [place], [place] [phone] Name, MD Dong 230 [place], [place] [phone] Cervical spondylosis with myelopathy; Chronic neck pain [...] Description 04/21/2025 10:15 AM EST Office Visit [facility] [address] [place] [address] NameDong MD 230 [place] [address] documented as of this encounter Visit Diagnoses Diagnosis Cervical spondylosis with myelopathy Chronic neck pain Cervicalgia documented in this encounter Additional Health Concerns Assessment Noted Time PHQ-9 Depression Total Score: 0 05/27/19 24 9:32 AM EDT documented as of this encounter Care Teams Production Inspector Relationship Specialty Start Date End Date NameDong MD [address] [place] [address] PCP - General Family Medicine 10/14/18 documented as of this encounter
--- OUTSIDE RECORDS SUMMARY | 2025-02-08 07:41 | XMS_ITS | Encounter Summary ---
Author Organization [employer] Address [address] [facility] [address] 7[address] [place] [address] Care Team Providers Care Luncheonette Operator Name Role Phone Name, Dong LONDON Primary Care Provider [phone] Reason for Visit * Reason Onset Date Comments Med Refill 01/23/2025 Encounter Details Date Type Department Care Team (Late st Contact Info) Description 01/23/2025 Refill [facility] 230 [place] [address] Name, MD Dong 230 [place] [address] Social History Tobacco Use Types Packs/Day Years [...] Description 04/21/2025 10:15 AM EST Office Visit [facility] [address] [place] [address] Name, MD Dong [address] [place] [address] documented as of this encounter Visit Diagnoses Not on filedocumented in this encounter Additional Health Concerns Assessment Noted Time PHQ-9 Depression Total Score: 22 025 9:49 AM EDT documented as of this encounter Care Teams Luncheonette Operator Relationship Specialty Start Date End Date Name, MD Dong [address] [place] [address] PCP - General Family Medicine 10/14/18 documented as of this encounter
--- OUTSIDE RECORDS SUMMARY | 2025-02-08 07:41 | XMS_ITS | Encounter Summary ---
Author Organization [employer] Address [address] [facility] [address] 7t [place] [address] Care Team Providers Care Senior Sustainability Consultant Name Role Phone Name, Dong LONDON Primary Care Provider [phone] Reason for Visit * Reason Onset Date Comments Med Refill 01/23/2025 Encounter Details Date Type Department Care Team (Late st Contact Info) Description 01/23/2025 Refill [facility] 230 [place] [address] Name, MD Dong 230 [place] [address] Erectile dysfunction, unspecified erectile dysfunction type Social [...] Score 22 11/29/2024 Patient Health Questionnaire-9 Score 11/29/2024 Last PHQ-9: Questionnaire Data Not on [...] Description 04/21/2025 10:15 AM EST Office Visit [facility] [address] [place] [address] NameDong MD 230 [place] [address] documented as of this encounter Visit Diagnoses Diagnosis Erectile dysfunction, unspecified erectile dysfunction type documented in this encounter Additional Health Concerns Assessment Noted Time PHQ-9 Depression Total Score: 22 025 9:49 AM EDT documented as of this encounter Care Teams Senior Sustainability Consultant Relationship Specialty Start Date End Date NameDong MD [address] [place] [address] PCP - General Family Medicine 10/14/18 documented as of this encounter
--- OUTSIDE RECORDS SUMMARY | 2025-02-08 07:42 | XMS_ITS | Encounter Summary ---
Author Organization [employer] Address [address] [facility] [address] 7t [place] [address] Care Team Providers Care Principal Strategist Name Role Phone Name, Dong LONDON Primary Care Provider [phone] Reason for Visit * Reason Comments Med Refill Encounter Details Date Type Department Care Team ([facility] st Contact Info) Description 01/28/[address] [facility] MED[facility]INE 230 [place], [place] [phone] Name, MD Dong 230 [place] [address] Social History Tobacco Use Types Packs/Day Years [...] 04/21/2025 10:15 AM EST Office Visit [facility] [address] [place] [address] NameDong MD 230 [place] [address] documented as of this encounter Visit Diagnoses Not on filedocumented in this encounter Additional Health Concerns Assessment Noted Time PHQ-9 Depression Total Score: 0 05/27/19 24 9:32 AM EDT documented as of this encounter Care Teams Principal Strategist Relationship Specialty Start Date End Date Name, MD Dong [address] [place] [address] PCP - General Family Medicine 10/14/18 documented as of this encounter
--- OUTSIDE RECORDS SUMMARY | 2025-02-08 07:42 | XMS_ITS | Encounter Summary ---
Author Organization [employer] Address [address] [facility] [address] 7t [place] [address] Care Team Providers Care Pressure Sealer And Tester Name Role Phone Name, Dong LONDON Primary Care Provider [phone] Encounter Details Date Type Department Care Team ([facility] st Contact Info) Description 02/06/2025 Telephone [facility]INE 230 [place], [place] [phone] Braulio Waddell MA Social History Tobacco Use Types Packs/Day Years [...] encounter Miscellaneous Notes * Telephone Encounter - Braulio Waddell MA - 02/06/2025 12:22 PM EST Telephone call to patient to schedule the following recall: Visit type: Follow up Appointment notes: 3 months follow up Patient agree to appointment on 04/21/25 at 10;15 AM with Name. Pt is asking for a Disability letter for social security documented in this encounter Plan of Treatment Upcoming Encounters Date Type Department Care Team (Late st Contact Info) Description 04/21/2025 10:15 AM EST Office Visit [facility] 230 [place] [address] Name, MD Dong 230 [place] [address] documented as of this encounter Goals Goal Patient Goal Type Associated Problems Recent Progress Patient-Stated? Author Help patients manage their type 2 diabetes Care Plan Help patients manage their type 2 diabetes Braulio Mtz MA Weekly blood pressure task Care Plan Weekly blood pressure task Braulio Mtz MA Help patients manage their type 2 diabetes Care Plan Help patients manage their type 2 diabetes No Braulio Waddell MA Patient has chronic kidney disease Care Plan Patient has chronic kidney disease Braulio Mtz MA Weekly blood pressure task Care Plan Weekly blood pressure task No Braulio Waddell MA Patient has chronic kidney disease Care Plan Patient has chronic kidney disease Braulio Mtz MA documented as of this encounter Visit Diagnoses Not on filedocumented in this encounter Additional Health Concerns Active Problems Noted Date Diagnosed Date Help patients manage their type 2 diabetes 02/06 Weekly blood pressure task 02/06/2025 Help patients manage their type 2 diabetes 02/06 Patient has chronic kidney disease 02/06/2025 Weekly blood pressure task 02/06/2025 Patient has chronic kidney disease 02/06/2025 Assessment Noted Time PHQ-9 Depression Total Score: 22 11/29/ 025 9:49 AM EDT documented as of this encounter Care Teams Pressure Sealer And Tester Relationship Specialty Start Date End Date Name, MD Dong 230 [place] [address] PCP - General Family Medicine 10/14/18 documented as of this encounter
--- OUTSIDE RECORDS SUMMARY | 2025-02-08 07:42 | XMS_ITS | Encounter Summary ---
Author Organization [employer] Address [address] [facility] 7t [place] [address] Care Team Providers Care Live Study Manager Name Role Phone Name, Dong LONDON Primary Care Provider Reason for Visit * Reason Comments Med Refill Encounter Details Date Type Department Care Team ([facility] Contact Info) Description 07/08/2022 Refill [facility] MEDICINE [address] [place] [phone] Name, MD Dong [address] [place] [address] Erectile dysfunction, unspecified erectile dysfunction type Social [...] Description 04/21/2025 10:15 AM EST Office Visit [facility] MEDICINE [address] [place] [address] Name, MD Dong 230 [place] [address] documented as of this encounter Visit Diagnoses Diagnosis Erectile dysfunction, unspecified erectile dysfunction type documented in this encounter Care Teams Live Study Manager Relationship Specialty Start Date End Date Name, MD Dong 230 [place] [address] PCP - General Family Medicine 10/14/18 documented as of this encounter
--- OUTSIDE RECORDS SUMMARY | 2025-02-08 07:42 | XMS_ITS | Encounter Summary ---
Author Organization [employer] Address [address] [facility] [address] 7t [place] [address] Care Team Providers Care Unit Aid Name Role Phone Name, Dong LONDON Primary Care Provider [phone] Reason for Visit * Reason Onset Date Comments Med Refill 11/30/2023 Encounter Details Date Type Department Care Team (Late st Contact Info) Description 11/30/2023 Refill [facility] 230 [place], [place] [phone] Name, MD Dong 230 [place] [address] Erectile dysfunction, unspecified erectile dysfunction type Social [...] Description 04/21/2025 10:15 AM EST Office Visit [facility] [address] [place] [address] NameDong MD 230 [place] [address] documented as of this encounter Visit Diagnoses Diagnosis Erectile dysfunction, unspecified erectile dysfunction type documented in this encounter Additional Health Concerns Assessment Noted Time PHQ-9 Depression Total Score: 0 05/27/19 24 9:32 AM EDT documented as of this encounter Care Teams Unit Aid Relationship Specialty Start Date End Date Name, MD Dong [address] [place] [address] PCP - General Family Medicine 10/14/18 documented as of this encounter
--- OUTSIDE RECORDS SUMMARY | 2025-02-08 07:42 | XMS_ITS | Encounter Summary ---
Author Organization [employer] Address [address] [facility] 7t [place] [address] Care Team Providers Care Production Inspector Name Role Phone Name, Dong LONDON Primary Care Provider [phone] Reason for Visit * Reason Comments Med Refill Encounter Details Date Type Department Care Team (Late st Contact Info) Description 06/26/2022 Refill [facility] MEDICINE [address] [place] [address] Name, MD Dong [address] [place] [address] Type 2 diabetes mellitus without complication, unspecified whether oysterman insulin use ([facility]) Social History Tobacco Use Types Packs/Day Years [...] 04/21/2025 10:15 AM EST Office Visit [facility] MED[facility]INE 230 [place] [address] Name, MD Dong 230 [place] [address] documented as of this encounter Visit Diagnoses Diagnosis Type 2 diabetes mellitus without complication, unspecified whether oysterman insulin use documented in this encounter Care Teams Production Inspector Relationship Specialty Start Date End Date Name, MD Dong 230 [place] [address] PCP - General Family Medicine 10/14/18 documented as of this encounter
--- OUTSIDE RECORDS SUMMARY | 2025-02-08 07:42 | XMS_ITS | Encounter Summary ---
Author Organization [employer] Address [address] [facility] [address] 7t [place] [address] Care Team Providers Care Boxing Inspector Name Role Phone Name, Dong LONDON Primary Care Provider [phone] Reason for Visit * Reason Onset Date Comments Med Refill 11/17/2023 Encounter Details Date Type Department Care Team (Late st Contact Info) Description 11/17/2023 Refill [facility] MED[facility] 230 [place], [place] [phone] Name, MD Dong 230 [place], [place] [phone] Cervical spondylosis with myelopathy; Chronic neck pain [...] Visit [facility] MEDICINE [address] [place] [address] NameDong MD 230 [place] [address] documented as of this encounter Visit Diagnoses Diagnosis Cervical spondylosis with myelopathy Chronic neck pain Cervicalgia documented in this encounter Additional Health Concerns Assessment Noted Time PHQ-9 Depression Total Score: 0 05/27/19 24 9:32 AM EDT documented as of this encounter Care Teams Boxing Inspector Relationship Specialty Start Date End Date NameDong MD [address] [place] [address] PCP - General Family Medicine 10/14/18 documented as of this encounter
--- OUTSIDE RECORDS SUMMARY | 2025-02-08 07:42 | XMS_ITS | Encounter Summary ---
Author Organization [employer] Address [address] [facility] [address] 7t [place] [address] Care Team Providers Care French Pastry Cook Name Role Phone Name, Dong LONDON Primary Care Provider [phone] Reason for Visit * Reason Comments Med Refill Encounter Details Date Type Department Care Team ([facility] st Contact Info) Description 01/26/2024 Refill [facility]INE 230 [place], [place] [phone] Name, MD Dong 230 [place] [address] Erectile dysfunction, unspecified erectile dysfunction type Social [...] Office Visit [facility] MEDICINE [address] [place] [address] NameDong MD 230 [place] [address] documented as of this encounter Visit Diagnoses Diagnosis Erectile dysfunction, unspecified erectile dysfunction type documented in this encounter Additional Health Concerns Assessment Noted Time PHQ-9 Depression Total Score: 0 05/27/19 24 9:32 AM EDT documented as of this encounter Care Teams French Pastry Cook Relationship Specialty Start Date End Date Name, MD Dong [address] [place] [address] PCP - General Family Medicine 10/14/18 documented as of this encounter
--- OUTSIDE RECORDS SUMMARY | 2025-02-08 07:42 | XMS_ITS | Encounter Summary ---
Author Organization [employer] Address [address] [facility] [address] 7t [place] [address] Care Team Providers Care Mold Sprayer Name Role Phone Name, Dong LONDON Primary Care Provider [phone] Reason for Visit * Reason Comments Med Refill Encounter Details Date Type Department Care Team ([facility] st Contact Info) Description 11/13/2023 Refill [facility] [address] [place], [place] [phone] Name, MD Dong 230 [place] [address] Social History Tobacco Use Types Packs/Day Years [...] 10:15 AM EST Office Visit [facility] MEDICINE [address] [place] [address] Name, MD Dong 230 [place] [address] documented as of this encounter Visit Diagnoses Not on filedocumented in this encounter Additional Health Concerns Assessment Noted Time PHQ-9 Depression Total Score: 0 05/27/19 24 9:32 AM EDT documented as of this encounter Care Teams Mold Sprayer Relationship Specialty Start Date End Date Name, MD Dong [address] [place] [address] PCP - General Family Medicine 10/14/18 documented as of this encounter
--- OUTSIDE RECORDS SUMMARY | 2025-02-08 07:42 | XMS_ITS | Encounter Summary ---
Author Organization [employer] Address [address] [facility] [facility] [address] 7t [place] [address] Care Team Providers Care Craps Dealer Name Role Phone Name, Dong LONDON Primary Care Provider [phone] Reason for Visit * Reason Onset Date Comments Med Refill 11/15/2024 Encounter Details Date Type Department Care Team (Late st Contact Info) Description 11/15/2024 Refill [facility] 230 [place], [place] [phone] Name, MD Dong 230 [place], [place] [phone] Cervical spondylosis with myelopathy; Chronic neck pain [...] Description 04/21/2025 10:15 AM EST Office Visit [facility] MEDICINE [address] [place] [address] NameDong MD 230 [place] [address] documented as of this encounter Visit Diagnoses Diagnosis Cervical spondylosis with myelopathy Chronic neck pain Cervicalgia documented in this encounter Additional Health Concerns Assessment Noted Time PHQ-9 Depression Total Score: 0 05/27/19 24 9:32 AM EDT documented as of this encounter Care Teams Craps Dealer Relationship Specialty Start Date End Date NameDong MD [address] [place] [address] PCP - General Family Medicine 10/14/18 documented as of this encounter
--- OUTSIDE RECORDS SUMMARY | 2025-02-08 07:42 | XMS_ITS | Encounter Summary ---
Author Organization [employer] Address [address] [facility] [address] 7t [place] [address] Care Team Providers Care Curriculum And Instruction Specialist Name Role Phone Name, Dong LONDON Primary Care Provider [phone] Reason for Visit * Reason Onset Date Comments Med Refill 10/18/2024 Encounter Details Date Type Department Care Team (Late st Contact Info) Description 10/18/2024 Refill [facility]INE 230 [place], [place] [phone] Name, MD Dong 230 [place], [place] [phone] Cervical spondylosis with myelopathy; Chronic neck pain [...] 04/21/2025 10:15 AM EST Office Visit [facility] MEDICINE [address] [place] [address] NameDong MD 230 [place] [address] documented as of this encounter Visit Diagnoses Diagnosis Cervical spondylosis with myelopathy Chronic neck pain Cervicalgia documented in this encounter Additional Health Concerns Assessment Noted Time PHQ-9 Depression Total Score: 0 05/27/19 24 9:32 AM EDT documented as of this encounter Care Teams Curriculum And Instruction Specialist Relationship Specialty Start Date End Date NameDong MD [address] [place] [address] PCP - General Family Medicine 10/14/18 documented as of this encounter
--- OUTSIDE RECORDS SUMMARY | 2025-02-08 07:42 | XMS_ITS | Encounter Summary ---
Author Organization [employer] Address [address] [facility] [address] 7t [place] [address] Care Team Providers Care Performance Reporter Name Role Phone Name, Dong LONDON Primary Care Provider [phone] Reason for Visit * Reason Comments Med Refill Encounter Details Date Type Department Care Team (Late st Contact Info) Description 12/11/2024 Refill [facility] MEDICINE 230 [place] [address] Khushboo Munson DO 230 [place] [address] Social History Tobacco Use Types Packs/Day Years [...] 10:15 AM EST Office Visit [facility] MEDICINE [address] [place] [address] Name, MD Dong 230 [place] [address] documented as of this encounter Visit Diagnoses Not on filedocumented in this encounter Additional Health Concerns Assessment Noted Time PHQ-9 Depression Total Score: 22 025 9:49 AM EDT documented as of this encounter Care Teams Performance Reporter Relationship Specialty Start Date End Date Name, MD Dong [address] [place] [address] PCP - General Family Medicine 10/14/18 documented as of this encounter
--- OUTSIDE RECORDS SUMMARY | 2025-02-08 07:42 | XMS_ITS | Encounter Summary ---
Author Organization [employer] Address [address] [facility] [address] [place] [address] Care Team Providers Care Sole Polisher Name Role Phone Name, Dong LONDON Primary Care Provider [phone] Reason for Visit * Reason Comments Med Refill Encounter Details Date Type Department Care Team ([facility] st Contact Info) Description 12/27/2024 Refill [facility] MED & PEDS [address] [place] [address] Name, MD Dong 230 [place] [address] Erectile dysfunction, unspecified erectile dysfunction type Social [...] Description 04/21/2025 10:15 AM EST Office Visit [facility] MEDICINE [address] [place] [address] NameDong MD 230 [place] [address] documented as of this encounter Visit Diagnoses Diagnosis Erectile dysfunction, unspecified erectile dysfunction type documented in this encounter Additional Health Concerns Assessment Noted Time PHQ-9 Depression Total Score: 22 025 9:49 AM EDT documented as of this encounter Care Teams Sole Polisher Relationship Specialty Start Date End Date Dong Costello MD [address] [place] [address] PCP - General Family Medicine 10/14/18 documented as of this encounter
--- OUTSIDE RECORDS SUMMARY | 2025-02-08 07:42 | XMS_ITS | Encounter Summary ---
Author Organization [employer] Address [address] [facility] [address] 7t [place] [address] Care Team Providers Care Conference Assistant Name Role Phone Name, Dong LONDON Primary Care Provider [phone] Reason for Visit * Reason Comments Med Refill Encounter Details Date Type Department Care Team ([facility] st Contact Info) Description 12/27/2024 Refill [facility] MED[facility]INE 230 [place], [place] [phone] Name, MD Dong 230 [place] [address] Benign prostatic hyperplasia without lower urinary tract [...] Description 04/21/2025 10:15 AM EST Office Visit [facility] MEDICINE [address] [place] [address] NameDong MD 230 [place] [address] documented as of this encounter Visit Diagnoses Diagnosis Benign prostatic hyperplasia without lower urinary tract symptoms documented in this encounter Additional Health Concerns Assessment Noted Time PHQ-9 Depression Total Score: 22 025 9:49 AM EDT documented as of this encounter Care Teams Conference Assistant Relationship Specialty Start Date End Date Dong Costello MD [address] [place] [address] PCP - General Family Medicine 10/14/18 documented as of this encounter
--- OUTSIDE RECORDS SUMMARY | 2025-02-08 07:42 | XMS_ITS | Encounter Summary ---
Author Organization [employer] Address [address] [facility] 7t [place] [address] Care Team Providers Care Cloth Dyeing Range Tender Name Role Phone Name, Dong LONDON Primary Care Provider [phone] Reason for Visit * Reason Comments Med Refill Encounter Details Date Type Department Care Team (Late Contact Info) Description 09/01/2022 Refill [facility] MEDICINE [address] [place] [address] Name, MD Dong [address] [place] [address] Type 2 diabetes mellitus without complication, unspecified whether exterminator insulin use ([facility]) Social History Tobacco Use Types Packs/Day Years [...] Description 04/21/2025 10:15 AM EST Office Visit [facility]INE 230 [place] [address] Name, MD Dong 230 [place] [address] documented as of this encounter Visit Diagnoses Diagnosis Type 2 diabetes mellitus without complication, unspecified whether exterminator insulin use documented in this encounter Care Teams Cloth Dyeing Range Tender Relationship Specialty Start Date End Date Name, MD Dong 230 [place] [address] PCP - General Family Medicine 10/14/18 documented as of this encounter
--- OUTSIDE RECORDS SUMMARY | 2025-02-08 07:42 | XMS_ITS | Encounter Summary ---
Author Organization [employer] Address [address] [facility] [address] 7t [place] [address] Care Team Providers Care Flare Maker Name Role Phone Name, Dong LONDON Primary Care Provider Reason for Visit * Reason Comments Med Refill Encounter Details Date Type Department Care Team ([facility] st Contact Info) Description 11/23/2024 Telephone [facility] MEDICINE 230 [place], [place] [phone] Name, MD Dong 230 [place], [place] [phone] Med Refill Social History Tobacco Use Types [...] the past 12 months, has t he [employer], gas, oil or water company threatened to [...] can get an Rx for Methotrexate through [facility] or if you recommend a referral to rheumatology for further evaluation. Thank you for your continued support. Sincerely, Miguel Gabriel Grecia [email or web address] - November 29, 2024.pdf documented in this encounter Plan of Treatment Upcoming Encounters Date Type Department Care Team (Late st Contact Info) Description 04/21/2025 10:15 AM EST Office Visit [facility] MEDICINE [address] [place] [address] Name, MD Dong [address] [place] [address] documented as of this encounter Visit Diagnoses Diagnosis Cervical spondylosis with myelopathy Chronic neck pain Cervicalgia documented in this encounter Additional Health Concerns Assessment Noted Time PHQ-9 Depression Total Score: 0 05/27/19 24 9:32 AM EDT documented as of this encounter Care Teams Flare Maker Relationship Specialty Start Date End Date Dong Costello MD [address] [place] [address] PCP - General Family Medicine 10/14/18 documented as of this encounter
--- OUTSIDE RECORDS SUMMARY | 2025-02-08 07:42 | XMS_ITS | Clinical Summary ---
Author Organization [employer] Address [address] [facility] 7[address] [place] [address] Care Team Providers Care Vocational Rehabilitation Consultant Name Role Phone Name, Dong LONDON Primary Care Provider [phone] Allergies Active Allergy Reactions Criticality Noted Date Comments Lisinopril Cough 10/09/2014 Other reaction(s): cough Medications * This document contains information received from the source organization and may not represent a complete record from that organization. Lancets (OneTouch Delica Plus [id number]) miscIndications :Type 2 diabetes mellitus without complication, unspecified whether nursing home insulin use Use as directed to check blood sugar three times every day 100 each 3 04/28/19 23 Active Multiple Vitamin (Multi-Vitamin) tablet Take 1 tablet by mouth in the morning. 90 tablet 1 09/30/19 23 Active glucose blood (OneTouch Ultra) test stripIndication s:Type 2 diabetes mellitus without complication, unspecified whether nursing home insulin use USE TO TEST BLOOD SUGAR THREE TIMES A DAY 100 strip 11 04/08/19 25 Active atorvastatin (Lipitor) 20 MG tabletIndicatio ns:Erectile dysfunction, unspecified erectile dysfunction type Take 1 tablet by mouth daily. 90 tablet 2 09/15/19 25 Active terazosin (Hytrin) 10 MG capsuleIndicati ons:Benign prostatic hyperplasia without lower urinary tract symptoms TAKE 1 CAPSULE BY MOUTH AT BEDTIME 90 capsule 1 10/04/19 25 Active amLODIPine (Norvasc) 5 MG tablet [...] once daily. 45 g 12/22/19 25 Active cyclobenzaprine (Flexeril) 10 MG tabletIndicatio ns:Erectile dysfunction, unspecified erectile dysfunction type Take 1 tablet by mouth every 6 hours during the day. 90 tablet 12/30/19 25 Active Jardiance 25 MG Take 1 tablet by mouth every morning. 90 tablet 12/30/19 25 Active sertraline (Zoloft) 100 MG tablet TAKE 2 TABLETS BY MOUTH EVERY MORNING 180 tablet 01/24/20 25 Active traZODone (Desyrel) 100 MG tablet TAKE 2 TABLETS BY MOUTH AT BEDTIME 180 tablet 01/24/20 25 Active oxyCODONE-aceta minophen (Percocet) 5-325 MG tabletIndicatio ns:Chronic neck pain Take 1 tablet by mouth every 8 (eight) hours if needed for severe pain for up to 28 days. 84 tablet 5 2:45 PM EST 01/25/20 25 025 Active metFORMIN (Glucophage) 500 MG tabletIndicatio ns:Erectile dysfunction, unspecified erectile dysfunction type TAKE 1 TABLET BY MOUTH TWICE DAILY WITH MEALS 180 tablet 1 02/08/20 25 Active sertraline (Zoloft) 100 MG tablet Take 2 tablets by mouth every morning. 180 tablet 1 05/28/19 25 025 Discontinued(Re order (will not trigger notification to Pharmacy)) metFORMIN (Glucophage) 500 MG tabletIndicatio ns:Erectile dysfunction, unspecified erectile dysfunction type Take 1 tablet by mouth twice daily with meals. 180 tablet 1 09/15/19 25 025 Discontinued traZODone (Desyrel) 100 MG tablet Take 2 tablets by mouth at bedtime. 180 tablet 10/07/19 25 025 Discontinued(Re order (will not trigger notification to Pharmacy)) oxyCODONE-aceta minophen (Percocet) 5-325 MG tabletIndicatio ns:Chronic neck pain TAKE ONE TABLET EVERY 8 HOURS NEEDED FOR PAIN 84 tablet 12/28/19 25 025 Discontinued(Re order (will not trigger notification to Pharmacy)) oxyCODONE-aceta minophen (Percocet) 5-325 MG tabletIndicatio ns:Chronic neck pain Take 1 tablet by mouth every 8 (eight) hours if needed for severe pain for up to 28 days. Do not start before January 24, 2025. 84 tablet 01/25/20 25 025 Discontinued(Re order (will not trigger notification to Pharmacy)) Active Problems Problem Noted Date Diagnosed Date [...] D deficiency 03/25/2013 Syrinx of spinal cord (CMS/HCC) 12/28/2012 Overview (09/05/2022): At the level of C5-C7. Initially described an MRI done at [facility] on 2009. Patient has chronic neck pain with radiation to the right arm, associated numbness and mild weakness. She was evaluated by a neurosurgeon at [facility]. He was explained that eventually might need surgical intervention. 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 Patient is currently following with neurosurgeon in [facility]. He has chronic pain on the cervical spine with radiation to both arms. MRI of the cervical spine was last done at [facility] on September 2009. Radiculopathy of arm 04/23/2010 Overview (09/05/2022): History of syrinx of the cervical spine High cholesterol 06/11/2007 Migraine with aura 01/07/2007 Overview (09/05/2022): O update HTN (hypertension) 09/18/2005 Encounters * This document contains information received from the source organization and may not represent a complete record from that organization. Date Type Department Care Team Description 02/06/2025 Refill [facility] [address] [place] [address] NameDong MD Erectile dysfunction, unspecified erectile dysfunction type 02/06/2025 Telephone [facility] [address] [place] [address] Braulio Waddell MA 01/23/2025 Refill [facility] [address] [place] [address] Bita Esquivel RN Chronic neck pain 01/23/2025 Refill [facility] [address] [place] [address] Dong Costello MD Erectile dysfunction, unspecified erectile dysfunction type 01/23/2025 Refill [facility] [address] [place] [address] Dong Costello MD 01/23/2025 Refill [facility] [address] [place] [address] Dong Costello MD 01/22/2025 Refill [facility] [address] [place] [address] Dong Costello MD Erectile dysfunction, unspecified erectile dysfunction type; Benign prostatic hyperplasia without lower urinary tract symptoms 12/28/2024 Refill [facility] [address] [place], [place] [phone] Dong Costello MD Erectile dysfunction, unspecified erectile dysfunction type 12/27/2024 Refill [facility] [address] [place] [address] Dong Costello MD Benign prostatic hyperplasia without lower urinary tract symptoms 12/27/2024 Refill [facility] [address] [place], [place] [phone] Dong Costello MD Erectile dysfunction, unspecified erectile dysfunction type 12/22/2024 Refill [facility] [address] [place] [address] Dong Costello MD Chronic neck pain 12/20/2024 Refill [facility] [address] [place] [address] Dong Costello MD 12/11/2024 Refill [facility] [address] [place] [address] Khushboo Munson DO 12/08/2024 Telephone [facility] [address] [place] [phone] Ml Parker RN 12/08/2024 Orders Only [facility] [address] [place] [phone] Dong Costello MD Arthralgia, unspecified joint (Primary Dx); Polyarthritis with positive rheumatoid factor ([facility]); Antinuclear antibody ([facility]) positive 12/01/2024 Refill [facility] [address] [place] [address] Dong Costello MD Erectile dysfunction, unspecified erectile dysfunction type 11/29/2024 9:30 AM EDT Office Visit [facility] [address] [place] [address] Dong Costello MD Type 2 diabetes mellitus without complication, without long-term current use of insulin ([facility]) (Primary Dx); Screening for prostate cancer; Depression with anxiety; Cervical spondylosis with myelopathy; Chronic neck pain 11/29/2024 Travel 11/25/2024 Telephone [facility] [address] [place] [address] Dong Costello MD Chart Prep 11/23/2024 Telephone [facility] [address] [place] [address] Dong Costello MD Med Refill 11/22/2024 Travel 11/21/2024 Patient Outreach [facility] [address] [place] [address] Dong Costello MD Pre-visit Planning (Pre visit planning LVM ) 11/21/2024 Refill [facility] [address] [place] [address] Dong Costello MD Cervical spondylosis with myelopathy; Chronic neck pain 11/18/2024 Refill [facility] [address] [place] [address] Dong Costello MD 11/18/2024 Refill [facility] [address] [place] [address] Khushboo Munson DO 11/15/2024 Refill [facility] [address] [place] [address] Dong Costello MD Cervical spondylosis with myelopathy; Chronic neck pain 11/15/2024 Refill [facility] [address], [place] [phone] Dong Costello MD Cervical spondylosis with myelopathy; Chronic neck pain from Last 3 Months Immunizations Immunization Administration Dates Next Due Influenza Injectable Quadriv alant Preservative Free IIV4 MDCK 12/04/2021,12/01/2019 Influenza injectable quadriv alent preservative free 12/26/2022,12/08/2020,12/01/2016 Influenza, IIV3, injectable 01/02/2016,1 03/29/2014,12/28/2012,03/10,02/22/2008,01/07/2007 Novel [id number]-[id number], preservative-free 05/11/2009 Pfizer Covid-19 Vaccine 12+ 08/01/2021,0 [...] 11/29/2024 9:44 AM EDT Plan of Treatment Upcoming Encounters Date Type Department Care Team (Late st Contact Info) Description 04/21/2025 10:15 AM EST Office Visit [facility] [address] [place] [address] Name, MD Dong [address] [place] [address] Health Maintenance Due Date Last Done Comments [...] on patient's age to complete this topic Goals Goal Patient Goal Type Associated Problems Recent Progress Patient-Stated? Author Help patients manage their type 2 diabetes Care Plan Help patients manage their type 2 diabetes Braulio Mtz MA Weekly blood pressure task Care Plan Weekly blood pressure task Braulio Mtz MA Help patients manage their type 2 diabetes Care Plan Help patients manage their type 2 diabetes Braulio Mtz MA Patient has chronic kidney disease Care Plan Patient has chronic kidney disease Braulio Mtz MA Weekly blood pressure task Care Plan Weekly blood pressure task No Braulio Waddell MA Patient has chronic kidney disease Care Plan Patient has chronic kidney disease Braulio Mtz MA Procedures Procedure Name Priority Date/Time Associated Diagnosis [...] complication, without long-term current use of insulin ([facility]) HM COLONOSCOPY Routine 10/30/2023 11:10 AM EDT [...] Blood Count 5.6 4.8 - 10.8 X10*3/uL [facility] Red Blood Count 5.60 4.60 - 5.80 X10*6/uL [facility] Hemoglobin 14.6 14.0 - 18.0 g/dl [facility] Hematocrit 45.5 42.0 - 52.0 % [facility] Mean Corpuscular Volume 81.3 80.0 - 98.0 fL [facility] Mean Corpuscular Hemoglobin 26.1(L) 27.0 - 33.0 pg [facility] Mean Corpuscular HGB Conc 32.1 31.0 - 36.0 g/dl [facility] Red Cell Distribution Width 14.6 11.0 - 16.0 % [facility] Platelet Count 114(L) 160 - 400 X10*3/uL [facility] Mean Platelet Volume 9.9 9.4 - 12.4 fL [facility] Neutrophils Percent Auto 67.3 45 - 73 % [facility] Imm Gran Pct Auto 0.2 0.0 - 0.4 % [facility] Lymphocytes Percent Auto 23.5 20 - 40 % [facility] Monocytes Percent Auto 5.9 2 - 11 % [facility] Eosinophils Percent Auto 2.9 0 - 4 % [facility] Basophils Percent Auto 0.2 0 - 2 % [facility] NRBC Pct Auto 0.0 0.0 - 0.2 /100WBC [facility] Neutrophils Absolute Auto 3.8 2.0 - 8.3 x10*3/uL [facility] Imm Gran Abs Auto 0.01 0.00 - 0.03 X10*3/uL [facility] Lymphocytes Absolute Auto 1.3 1.2 - 4.9 X10*3/uL [facility] Monocytes Absolute Auto 0.3 0.1 - 1.2 X10*3/uL [facility] Eosinophils Absolute Auto 0.2 0.0 - 0.4 X10*3/uL [facility] Basophils Absolute Auto 0.0 0.0 - 0.2 X10*3/uL [facility] NRBC Abs Auto 0.000 0.0 - 0.012 X10*3/uL [facility] Blood Venous blood specimen / Unknown 12/01/2024 8:46 AM EDT 12/01/2024 2:32 PM EDT us Dong Name LAB BLOOD ORDERABLES Final Resul t [facility] [address] [place] [phone] [phone] * PSA,Total (12/01/2024 8:46 AM EDT) Prostate Specific Antigen 1.38 <0.05 - 4.0 ng/mL [facility] Comment:PSA methodology: Abb elle Brunson i ChemiluminescentMicroparticle Immunoassay (CMIA) Blood Venous blood specimen / Unknown 12/01/2024 8:46 AM EDT 12/01/2024 2:32 PM EDT us Dong Costello MD LAB BLOOD ORDERABLES Final Resul t Performing Organization Address [facility] de Phone Number [facility] [address] [place] [phone] * (ABNORMAL) Lipid Panel, Standard (12/01/2024 8:46 AM EDT) Triglycerides 157(H) <150 mg/dL [facility] Comment:Desirable Triglyceri de: less than 150 mg/dLBorderline High Triglyceride 150-199 mg/dLHigh Triglyceride: 200-499 mg/dLVery High Triglyceride: greater than or equal to 5OO mg/dL Cholesterol 159 <200 mg/dL [facility] Comment:Desirable Cholestero l: less than 200 mg/dLBorderline High Cholesterol: 200-239 mg/dLHigh Cholesterol: greater than 239 mg/dL LDL Cholesterol Calculated 97 <100 mg/dL [facility] Comment:Desirable LDL: less than 100 mg/dLNear Optimal/Above Optimal LDL: 110- 129 mg/dLBorderline High LDL: 130-159 mg/dLHigh LDL: 160-189 mg/dLVery High LDL: greater than or equal to 190 mg/dL HDL Cholesterol 31(L) >40 mg/dL [facility] Comment:Desirable HDL: great er than 40 mg/dL Note: This HDL assay may give artificially low results in patients with liver disease. Blood Venous blood specimen / Unknown 12/01/2024 8:46 AM EDT 12/01/2024 2:32 PM EDT us Dong Costello MD LAB BLOOD ORDERABLES Final Resul t Performing Organization Address [facility] Co de Phone Number [facility] [address] [place] [phone] * (ABNORMAL) Comprehensive Metabolic Panel (12/01/2024 8:46 AM EDT) Sodium 145 135 - 145 mmol/L [facility] Potassium 3.8 3.3 - 5.1 mmol/L [facility] Chloride 108 96 - 108 mmol/L [facility] Carbon Dioxide 29 22 - 29 mmol/L [facility] Anion Gap 12 12 - 20 [facility] Urea Nitrogen (BUN) 14 9 - 16 mg/dL [facility] Creatinine, Serum 1.02 0.5 - 1.4 mg/dL [facility] Estimated Glomerular Filt Rate >60 [facility] Comment:Chronic Kidney Disea se: Estimated GFR < 60 mL/min/1.01k8Ggctds Kidney Disease: Estimated GFR < 15 mL/min/1.73m2 Glucose 123(H) 60 - 115 mg/dL [facility] Calcium 9.8 8.4 - 10.2 mg/dL [facility] Bilirubin, Total 0.5 0.0 - 1.0 mg/dL [facility] Aspartate Amino Transferase 34 5 - 37 U/L [facility] Alanine Aminotransferase 23 0 - 40 U/L [facility] Total Protein 7.0 6.5 - 8.0 g/dL [facility] Albumin Level 4.4 3.5 - 5.0 g/dL [facility] Alkaline Phosphatase 71 39 - 117 U/L [facility] Blood Venous blood specimen / Unknown 12/01/2024 8:46 AM EDT 12/01/2024 2:32 PM EDT us Dong Name MD LAB BLOOD ORDERABLES Final Resul t [facility] [address] [place] [phone] [phone] * Albumin, Random Urine W/Creatinine (12/01/2024 12:00 AM EDT) Creatinine, Urine 174.32 mg/dL [facility] Microalbumin Urine 9.0 mg/L [facility] Microalbum Creatinine Ratio Ur 5.1 <30 ug/mg cr [facility] Comment:Albumin/Creatinine R atio Reference Ranges: Normal: < 30 ug/mg creatinine Microalbuminuria: 30 - 300 ug/mg creatinineClinical Albuminuria: > 300 ug/mg creatinine Urine (Urine, Random) 12/01/2024 12/01/2024 Result Sean Costello MD LAB URINE ORDERABLES Final Resul t [facility] [address] [place] [phone] * (ABNORMAL) POCT Hgb A1c (11/29/2024 9:45 AM EDT) Hemoglobin A1C 6.0(A) 4.0 - 5.7 % QC Media Lot # [id number] Lot# Expiration Date [id number] Blood 11/29/2024 9:45 AM EDT Result Sean Costello [...] ENTER/EDIT OR DERABLES Final Result * (ABNORMAL) Colonoscopy (10/30/2023 11:10 AM EDT) Colonoscopy Abnormal(A ) Normal Result Sean Costello MD HEALTH MAINTENANCE Final Result from Last 3 Months or Most Recently Relevant to Health Maintenance Additional Health Concerns Active Problems Noted Date Diagnosed Date Help patients manage their type 2 diabetes 02/06 Weekly blood pressure task 02/06/2025 Help patients manage their type 2 diabetes 02/06 Patient has chronic kidney disease 02/06/2025 Weekly blood pressure task 02/06/2025 Patient has chronic kidney disease 02/06/2025 Insurance BCBS PPO [facility] [address] [place] Care Teams Vocational Rehabilitation Consultant Relationship Specialty Start Date End Date Name, MD Dong [address] [place] [phone] PCP - General Family Medicine 10/14/18
--- OUTSIDE RECORDS SUMMARY | 2025-02-08 07:42 | XMS_ITS | Encounter Summary ---
Author Organization [employer] Address [address] [facility] [address] [place] [address] Care Team Providers Care Fur Liner Name Role Phone Name, Dong LONDON Primary Care Provider [phone] Reason for Visit * Reason Comments Med Refill Encounter Details Date Type Department Care Team ([facility] st Contact Info) Description 10/28/2024 Refill [facility] [address] [place], [place] [phone] Name, MD Dong [address] [place] [address] Social History Tobacco Use Types Packs/Day Years [...] EST Office Visit [facility] [address] [place] [phone] NameDong MD [address] [place] [address] documented as of this encounter Visit Diagnoses Not on filedocumented in this encounter Additional Health Concerns Assessment Noted Time PHQ-9 Depression Total Score: 0 05/27/19 24 9:32 AM EDT documented as of this encounter Care Teams Fur Liner Relationship Specialty Start Date End Date Name, MD Dong [address] [place] [phone] PCP - General Family Medicine 10/14/18 documented as of this encounter
--- OUTSIDE RECORDS SUMMARY | 2025-02-08 07:42 | XMS_ITS | Encounter Summary ---
Author Organization [employer] Address [address] [facility] [address] [place] [address] Care Team Providers Care Host/Hostess Ground Name Role Phone Name, Dong LONDON Primary Care Provider [phone] Reason for Visit * Reason Comments Med Refill Encounter Details Date Type Department Care Team ([facility] st Contact Info) Description 02/06/2025 Refill [facility] [address] [place] [address] Name, MD Dong [address] [place] [address] Erectile dysfunction, unspecified erectile dysfunction type Social [...] [facility] [address] [place] [phone] Name, MD Dong [address] [place] [phone] documented as of this encounter Goals Goal [...] Weekly blood pressure task Braulio Mtz MA Patient has chronic kidney disease Care Plan Patient has chronic kidney disease Braulio Mtz MA documented as of this encounter Visit Diagnoses Diagnosis Erectile dysfunction, unspecified erectile dysfunction type documented in this encounter Additional Health Concerns Active [...] documented as of this encounter Care Teams Host/Hostess Ground Relationship Specialty Start Date End Date Name, MD Dong [address] [place] [address] PCP - General Family Medicine 10/14/18 documented as of this encounter
--- OUTSIDE RECORDS SUMMARY | 2025-02-08 07:42 | XMS_ITS | Encounter Summary ---
Author Organization [employer] Address [address] [facility] [address] [place] [address] Care Team Providers Care Supervisor Offset Plate Preparation Name Role Phone Name, Dong LONDON Primary Care Provider [phone] Reason for Visit * Reason Comments Med Refill Encounter Details Date Type Department Care Team ([facility] st Contact Info) Description 01/12/2024 Refill [facility] [address] [place], [place] [phone] Name, MD Dong [address] [place] [address] Erectile dysfunction, unspecified erectile dysfunction type Social [...] [facility]INE [address] [place] [address] NameDong MD [address] [place] [address] documented as of this encounter Visit Diagnoses Diagnosis Erectile dysfunction, unspecified erectile dysfunction type documented in this encounter Additional Health Concerns Assessment Noted Time PHQ-9 Depression Total Score: 0 05/27/19 24 9:32 AM EDT documented as of this encounter Care Teams Supervisor Offset Plate Preparation Relationship Specialty Start Date End Date Name, MD Dong [address] [place] [phone] PCP - General Family Medicine 10/14/18 documented as of this encounter
--- OUTSIDE RECORDS SUMMARY | 2025-02-08 07:42 | XMS_ITS | Encounter Summary ---
Author Organization [employer] Address [address] [facility] [address] [place] [address] Care Team Providers Care Cash Register Operator Name Role Phone Name, Dong LONDON Primary Care Provider [phone] Reason for Visit * Reason Comments Med Refill Encounter Details Date Type Department Care Team (Late st Contact Info) Description 03/02/2024 Refill [facility] [address] [place], [place] [phone] Name, MD Dong [address] [place] [address] Erectile dysfunction, unspecified erectile dysfunction type; Benign [...] Visit [facility] [address] [place] [phone] NameDong MD [address] [place] [address] documented as of this encounter Visit Diagnoses Diagnosis Erectile dysfunction, unspecified erectile dysfunction type Benign prostatic hyperplasia without lower urinary tract symptoms documented in this encounter Additional Health Concerns Assessment Noted Time PHQ-9 Depression Total Score: 0 05/27/19 24 9:32 AM EDT documented as of this encounter Care Teams Cash Register Operator Relationship Specialty Start Date End Date Name, MD Dong [address] [place] [phone] PCP - General Family Medicine 10/14/18 documented as of this encounter
--- OUTSIDE RECORDS SUMMARY | 2025-02-08 07:42 | XMS_ITS | Encounter Summary ---
Author Organization [employer] Address [address] [facility] [address] [place] [address] Care Team Providers Care Media Consultant Outside Sales Name Role Phone Name, Dong LONDON Primary Care Provider [phone] Reason for Visit * Reason Comments Med Refill Encounter Details Date Type Department Care Team (Late st Contact Info) Description 09/29/2022 Refill [facility] [address] [place] [address] [phone] Name, MD Dong [address] [place] [phone] Social History Tobacco Use Types Packs/Day Years [...] Description 04/21/2025 10:15 AM EST Office Visit [facility] [address] [place] [address] Name, MD Dong [address] [place] [address] documented as of this encounter Visit Diagnoses Not on filedocumented in this encounter Care Teams Media Consultant Outside Sales Relationship Specialty Start Date End Date Name, MD Dong [address] [place] [address] PCP - General Family Medicine 10/14/18 documented as of this encounter
--- NOTE | 2025-02-08 08:04 | A.OFFVIS_ITS ---
Vital Signs 02/08/25 08:09 Height 6 ft 4 in Weight 240 lb 11.916 oz BMI 29.3 BP 152/94 H Blood Pressure Location Lt brachial Position Sitting Pulse 91 Pulse Source Pulse Oximeter Pulse Oximetry (%) 94 Oxygen Delivery Method Room Air Intake Visit Reasons: + BUFFY/Arthralgia Intake Note: Patient presents for + BUFFY/Arthralgia follow up. Allergies losartan Adverse Reaction (Intermediate, Verified 02/08/25 08:09) Cough Medication List - Last Reconciled 02/08/25 by Fern Tejada MD amlodipine 5 mg PO DAILY [id number]-yikwzowu 250-250-65 mg (Excedrin Migraine) 1 tab PO Q4-6H PRN atorvastatin 20 mg PO DAILY back brace As directed blood sugar diagnostic ([employer] Ultra Test strips) As directed cyclobenzaprine 10 mg PO TID empagliflozin (Jardiance) 10 mg PO DAILY gabapentin 800 mg PO TID metformin 500 mg PO BID metoprolol tartrate 100 mg PO BID mometasone 0.1% topical DAILY oxycodone-acetaminophen 5-325 mg 1 tab PO Q8H PRN sertraline 300 mg PO DAILY tamsulosin 0.4 mg PO BEDTIME trazodone 200 mg PO BEDTIME PRN HPI Comments Details: Patient is a 59-year-old male with depression with anxiety, hypertension, migraines, hyperlipidemia, diabetes, BPH, polyarticular osteoarthritis including cervical spondylosis here today for evaluation of polyarthralgias in the setting of elevated rheumatoid factor/elevated CRP/elevated ESR - Reported onset of pain in 2009 with neck pain extending to shoulders and lower back following cervical spine health issues with subsequent fusion surgery. - Persistent and exacerbating pain despite medical and surgical interventions noted. - New joint symptoms in hands and feet began approximately one year ago, with morning stiffness and dropping objects occurring unpredictably. - Family history is significant for rheumatoid arthritis in the patient's mother. - The patient has had imaging studies (MRI) and multiple clinical evaluations, with ongoing significant discomfort impacting quality of life. - The patient's spine symptoms alleviate temporarily with traction and physical therapy but pain persists constantly. [facility] Medical History (Updated 02/08/25 @ 09:00 by Fern Tejada MD) Rheumatoid arthritis Degenerative joint disease of cervical spine Other chronic pain Chronic neck pain Cervical spondylosis with myelopathy Restrictive airway disease Nocturnal hypoxemia Diabetes mellitus type 2 in obese HTN (hypertension) Surgical History History of cervical spinal surgery Hx of cholecystectomy H/O Spinal surgery Family History Mother Diabetes HTN (hypertension) Father Diabetes HTN (hypertension) Family/Other HTN (hypertension) Social History Alcohol intake: never Patient Tobacco Use Status: Former Tobacco user Review of Systems Narrative Review of Systems - Musculoskeletal: Reports joint pain in neck, shoulders, fingers, and toes. Denies swelling in hands or feet. - Neurological: Reports morning stiffness in hands. - Other systems: No other specific complaints reported or denied. All other systems reviewed and are unremarkable except noted above Physical Exam Exam Exam: Vital signs reviewed Physical Examination CONSTITUITIONAL Patient alert and cooperative. Well appearing and in no apparent painful distress MSK Hands * Right Hand: Able to make a fist. No swelling or tenderness to palpation of the MCPs, PIPs or DIPs. TTP of 5th DIP and PIP * Left Hand: Able to make a fist. No swelling or tenderness to palpation of the MCPs, PIPs or DIPs. TTP of 3rd & 4th DIPs and 3rd & 4th MCPs Wrists * Right Wrist: Full ROM to flexion and extension. No swelling or TTP * Left Wrist: Full ROM to flexion and extension. No swelling or TTP Elbows * Right Elbow: Full ROM. No swelling or TTP. No TTP of the medial epicondyle. No TTP of the lateral epicondyle * Left Elbow: Full ROM. No swelling or TTP. No TTP of the medial epicondyle. No TTP of the lateral epicondyle Shoulders * Right shoulder: Decreased ROM. No swelling noted. No TTP of the AC joint. No TTP of the subacromial bursa. No TTP of the posterior shoulder * Left shoulder: Full ROM. No swelling noted. No TTP of the AC joint. No TTP of the subacromial bursa. No TTP of the posterior shoulder Knees * Right knee: Full ROM. No swelling noted. No TTP of the knee joint line. No TTP of pes anserine bursa * Left knee: Full ROM. No swelling noted. No TTP of the knee joint line. No TTP of pes anserine bursa. Ankles * Right ankle: Good ankle dorsiflexion and plantar flexion. No swelling. No TTP of the ankle joint * Left ankle: Good ankle dorsiflexion and plantar flexion. No swelling. No TTP of the ankle joint Feet * Right foot: TTP 2nd and 3rd MTP * Left foot: Negative squeeze test Tender points? * Tenderness to palpation of the bilateral trapezius, but no supraspinatus, anterior costochondral junctions, bilateral suboccipital muscle insertions SKIN No rashes Vital Signs: Last Vital Signs Pulse 91 02/08/25 08:09 BP 152/94 H 02/08/25 08:09 Pulse Ox 94 02/08/25 08:09 Oxygen Delivery Method Room Air 02/08/25 08:09 BMI result Body Mass Index 29.3 Results Reviewed Results Reviewed: Laboratory Tests 09/24/23 12/01/24 09:02 08:46 WBC 5.6 RBC 5.60 Hgb 14.6 Hct 45.5 Plt Count 114 L Sodium 145 Potassium 3.8 Chloride 108 Carbon Dioxide 29 BUN 14 Creatinine 1.02 AST 34 ALT 23 C-Reactive Protein 0.20 RF positive MR C Spine 12/2019 FINDINGS: There are postoperative changes following ACDF at C4-C5 and C5-C6. Mild disc volume loss at the junctional C3-C4 level. There is no bone marrow edema. There are no acute fractures. Craniocervical junction is unremarkable. Partially imaged posterior fossa is unremarkable. Cervical arterial flow voids are maintained. Similar small focal syrinx at C6. There is no new cord signal abnormality. The cervical arterial flow voids are maintained. Partially imaged lipoma within the left periscapular region. C2-C3: Shallow central disc protrusion mildly does the ventral thecal sac. Uncovertebral joint spurring and hypertrophic facet arthropathy result in moderate to severe right-sided foraminal stenosis. Findings are unchanged. C3-C4: Disc osteophyte mildly narrows the central canal. Uncovertebral joint hypertrophy and hypertrophic facet arthropathy result in moderate bilateral foraminal stenosis. Findings are unchanged. C4-C5: ACDF changes. Postoperative decompression of the central canal. Osteophytic ridging slightly flattens the ventral cord. Uncovertebral joint spurring results in mild right foraminal encroachment. C5-C6: ACDF changes. Osteophytic ridging continues to result in mass effect on the cervical cord and moderate central canal stenosis. Uncovertebral joint hypertrophy and hypertrophic facet arthropathy continue to result in severe right-sided foraminal stenosis. C6-C7: Disc osteophyte mildly narrows the central canal. Uncovertebral joint hypertrophy and hypertrophic facet arthropathy result in worsening severe right-sided foraminal stenosis. C7-T1: Shallow central disc protrusion without central canal stenosis. Facet arthropathy results in mild to moderate right and mild left foraminal stenosis that is unchanged. At T1-T2, there is a similar appearing left paracentral disc protrusion that slightly flattens the left ventral cord. MR/MR cervical spine wo con IMPRESSION: - There are postoperative changes following C4-C5 and C5-C6 ACDF. At C5-C6, osteophytic ridging continues to result in moderate central canal stenosis, flattening of the cervical cord, and severe right-sided foraminal stenosis. - At C6-C7, progressive spondylitic changes result in worsening severe right-sided foraminal stenosis. - Spondylitic changes result in similar moderate to severe right C2-C3 and moderate bilateral C3-C4 foraminal stenosis. - Similar small focal syrinx at C6. Assessment & Plan Assessment & Plan (1) Rheumatoid arthritis: Code(s): M06.9 - Rheumatoid arthritis, unspecified Category: Medical Qualifiers: Rheumatoid arthritis location: multiple sites Rheumatoid factor presence: with rheumatoid factor Qualified Code(s): M05.79 - Rheumatoid arthritis with rheumatoid factor of multiple sites without organ or systems inv olvement Plan: #Rheumatoid arthritis Patient is a 59-year-old male with longstanding cervical/spine spondylosis here today for evaluation of polyarthralgias in the setting of elevated RF. Has some tenderness to MCPs which could be consistent with early synovitis. Given his elevated inflammatory markers add positive RF from his primary this could be related to early rheumatoid arthritis. Ideally would have liked to trial hydroxychloroquine however due to his trazodone use and the risk of prolonged QTC we will move forward with methotrexate Plan - Methotrexate 15mg weekly - Folic acid 1 mg daily - Labs today: CBC, CMP, ESR, CRP, Hepatitis panel and T spot, RF, CCP - XR Hands, Feet, L Spine, SI joint - RTC 4 months - Labs before visit: CBC, CMP, ESR, CRP (2) Lumbar back pain with radiculopathy affecting left lower extremity: Code(s): M54.16 - Radiculopathy, lumbar region Category: Medical Plan: #Lumbar pain Discussed with the patient that his lumbar pain is likely related to degenerative disease of the spine and not rheumatoid arthritis. Methotrexate we will not improve his pain here. Recommending that he continue follow up with pain management (3) Encounter for methotrexate monitoring: Code(s): Z51.81 - Encounter for therapeutic drug level monitoring; Z79.631 - [facility] (current) use of antimetabolite agent Plan: #Long-term Current Use of Methotrexate Discussed with patient the benefits and risks of methotrexate for managing their rheumatic condition Benefits include reduced pain, reduced mortality, maintenance of remission and reduction of flares Risks include oral ulcers, photosensitivity, hepatotoxicity, hematologic toxicity, pneumonitis, flu-like symptoms (especially day after administration), nodulosis, lymphomas ? Limit alcohol and avoid Bactrim ? Monitoring: CBC, BMP, LFTs every 3-4 months and hepatitis serologies as needed ? Methotrexate is teratogenic. If planning need to discontinue 3 months prior to conception Plan I discussed with the patient the chronicity and management of the diagnosed rheumatoid arthritis and spinal issues. Treatment adjustments were made to address medication interactions with the introduction of methotrexate and folic acid as alternatives. I addressed the importance of monitoring liver function and the need for laboratory evaluations before the next appointment. We reviewed the non-surgical management strategy for the patient's spine pathologies, including physical therapy and lifestyle modifications, while effectively managing muscle spasms with medication. The patient was informed about the course of management and potential symptomatology improvement timelines. A follow-up in four months was scheduled, with consent for planned interventions and evaluations secured. I spent 45 minutes reviewing the record and labs, taking a history, examining the patient, discussing the treatment plan, ordering diagnostic work up and documenting in the medical record Orders: Orders Complete Blood Count Auto Diff Today M06.9 - Rheumatoid arthritis, unspecified, Z79.899 - Other long line teamster (current) drug therapy Comprehensive Met. Panel Today M06.9 - Rheumatoid arthritis, unspecified, Z79.899 - Other long line teamster (current) drug therapy Erythrocyte Sedimentation Rate Today M06.9 - Rheumatoid arthritis, unspecified, Z79.899 - Other intermediate (current) drug therapy T Spot TB Today M06.9 - Rheumatoid arthritis, unspecified, Z79.899 - Other intermediate (current) drug therapy Cyclic Citrullinated Peptide Today M06.9 - Rheumatoid arthritis, unspecified XR Hand Bilat min 3v Today M06.9 - Rheumatoid arthritis, unspecified XR Foot Chris 3V Today M06.9 - Rheumatoid arthritis, unspecified, M25.50 - Pain in unspecified joint Erythrocyte Sedimentation Rate 4 Months Z79.60 - penitentiary (current) use of unspecified immunomodulators and immunosuppressants C Reactive Protein 4 Months Z79.60 - penitentiary (current) use of unspecified immunomodulators and immunosuppressants Complete Blood Count Auto Diff 4 Months Z79.60 - penitentiary (current) use of unspecified immunomodulators and immunosuppressants Comprehensive [place]. Panel Fast 4 Months Z79.60 - penitentiary (current) use of unspecified immunomodulators and immunosuppressants C Reactive Protein Today M06.9 - Rheumatoid arthritis, unspecified, Z79.899 - Other intermediate (current) drug therapy Hepatitis B,C Profile Today M06.9 - Rheumatoid arthritis, unspecified, Z79.899 - Other long line teamster (current) drug therapy Rheumatoid Factor Today M06.9 - Rheumatoid arthritis, unspecified XR lumbar spine 4V min Today M54.9 - Dorsalgia, unspecified XR sacroiliac joint min 3V Today M54.9 - Dorsalgia, unspecified Medications: New methotrexate sodium 15 mg (6 x 2.5 mg) PO QWEEK 78 tabs 1RF 90 days folic acid 1 mg PO DAILY 90 tabs 1RF 90 days M06.9 - Rheumatoid arthritis, unspecified Coding Level of Care Code New Pt Level 4 (02600) Complex visit Add On [id number] Diagnoses Rheumatoid arthritis involving multiple sites with positive rheumatoid factor M05.79 Rheumatoid arthritis location: multiple sites Rheumatoid factor presence: with rheumatoid factor Lumbar back pain with radiculopathy affecting left lower extremity M54.16 Encounter for methotrexate monitoring Z51.81; Z79.631
[2025-02-08 08:09] VITALS: BP 152/94; PULSE 91; O2SAT 94; BMI 29.3
== END 2025-02-08 08:55 | disposition home or self-care (01) ==
LOC: HO.RHES 07:38
PROVIDERS: PCP Internal Medicine Geriatric Medicine; Visit Provider Student in an Organized Health Care Education/Training Program
DX: M05.79 Rheumatoid arthritis with rheumatoid factor of multiple sites without organ or systems involvement (principal); M54.16 Radiculopathy, lumbar region; Z51.81 Encounter for therapeutic drug level monitoring; Z79.631 Long term (current) use of antimetabolite agent
CPT/HCPCS: 99204

== ENCOUNTER 2025-02-08 07:38 | Outpatient (REF) | payer BC, SELFPAY ==
[2025-02-08 13:23] LABS: MANUAL DIFF FLAG NO
[2025-02-08 13:36] LABS: Hematocrit 49.6 % (42.0-52.0); Hemoglobin 15.6 g/dl (14.0-18.0); Imm Gran Abs Auto 0.02 X10*3/uL (0.00-0.03); Imm Gran Pct Auto 0.4 % (0.0-0.4); Lymphocytes Absolute Auto 1.2 X10*3/uL (1.2-4.9); Mean Corpuscular HGB Conc 31.5 g/dl (31.0-36.0); Mean Corpuscular Hemoglobin 25.7 pg (27.0-33.0); Mean Corpuscular Volume 81.6 fL (80.0-98.0); NRBC Abs Auto 0.000 X10*3/uL (0.0-0.012); NRBC Pct Auto 0.0 /100WBC (0.0-0.2); Platelet Count 138 X10*3/uL (160-400); Red Blood Count 6.08 X10*6/uL (4.60-5.80); White Blood Count 5.6 X10*3/uL (4.8-10.8)
[2025-02-08 13:55] LABS: Alanine Aminotransferase 27 U/L (0-40); Albumin Level 4.7 g/dL (3.5-5.0); Alkaline Phosphatase 76 U/L (39-117); Anion Gap 12 (12-20); Aspartate Amino Transferase 31 U/L (5-37); Blood Urea Nitrogen 14 mg/dL (9-16); Calcium 9.9 mg/dL (8.4-10.2); Carbon Dioxide 31 mmol/L (22-29); Chloride 103 mmol/L (96-108); Estimated Glomerular Filt Rate > 60; Potassium 4.4 mmol/L (3.3-5.1); Sodium 142 mmol/L (135-145); Total Protein 7.4 g/dL (6.5-8.0)
[2025-02-08 14:04] LABS: Erythrocyte Sedimentation Rate 2 MM/HR (0-15)
[2025-02-09 04:58] LABS: HBS Num1 3.13 mIU/mL (0-7.99); HBc Num1 0.07 S/CO (0.00-0.79); HBsAGNum1 0.47 S/CO (0.00-0.99); Hepatitis B Surface Antigen Negative (Negative); ~HepC Num1 0.09 S/CO (0.00-0.79); ~Hepatitis B Surface Antibody NONREACTIVE (Nonreactive); ~Hepatitis C Antibody Nonreactive (Nonreactive)
== END 2025-02-08 07:39 | disposition home or self-care (01) ==
LOC: HO.HKASLDS 07:38
PROVIDERS: PCP Internal Medicine Geriatric Medicine; Visit Provider Student in an Organized Health Care Education/Training Program
DX: M05.79 Rheumatoid arthritis with rheumatoid factor of multiple sites without organ or systems involvement (principal); M54.16 Radiculopathy, lumbar region; Z51.81 Encounter for therapeutic drug level monitoring; Z79.631 Long term (current) use of antimetabolite agent; Z79.899 Other long term (current) drug therapy; Z11.59 Encounter for screening for other viral diseases
CPT/HCPCS: 36415; 80053; 85025; 85652; 86140; 86200; 86431; 86704; 86706; 86803; 87340